=== PATIENT | male | born 1945 | race Caucasian/White ===

== ENCOUNTER → 2023-09-30 | Outpatient (CLI) | payer OTHER, SELFPAY ==
--- NOTE | 2023-09-30 14:51 | CT_ITS ---
STUDY: CT ABDOMEN AND PELVIS WITH AND WITHOUT CONTRAST REASON FOR EXAM: Male, 78 years old. Other microscopic hematuria RADIATION DOSAGE (If Supplied By Facility): CTDIvol = ( 20.79 ) mGy, DLP = ( 2668.36 ) mGycm TECHNIQUE: Transaxial images were obtained from the dome of the diaphragm to the symphysis pubis without oral contrast. IV 100mL Isovue-300 was administered. Sagittal and coronal images were reconstructed. Individualized dose optimization techniques were used for this CT. COMPARISON: None. FINDINGS: The visualized lung bases are unremarkable. Coronary artery calcification. There is decreased attenuation of the liver consistent with steatosis. Normal gallbladder and extrahepatic biliary system. Normal spleen. Normal pancreas. Normal bilateral adrenal glands. Normal right kidney. Is evidence of a staghorn calculus in the left kidney extending from the renal pelvis to the mid and lower pole calyces of the left kidney. Moderate size left hydronephrosis. Normal visualized stomach. Normal small intestine. There are multiple colonic diverticula consistent with diverticulosis. The appendix is visualized and appears normal. There is diffuse atherosclerotic calcification of the abdominal aorta and its major visceral branches, without a demonstrated aneurysm. Normal inferior vena cava. Normal retroperitoneum. Normal urinary bladder. Heterogeneous enlargement of the prostate with indentation at the bladder base. This measures 5 cm x 6.7 cm. Normal abdominal wall. There are diffuse degenerative changes of the visualized lumbar spine. CT/CT Abd/Pelvis W/WO Contrast IMPRESSION: Left staghorn calculus with left hydronephrosis. Fatty infiltration of the liver. Heterogeneous enlargement of the prostate with indentation at the bladder base. Electronically Signed: Winston Bruce MD at 15:21 EDT ,
== END | disposition home or self-care (01) ==
PROVIDERS: PCP Internal Medicine; Referring Provider Internal Medicine; Visit Provider Internal Medicine
DX: R31.29 Other microscopic hematuria (principal)
CPT/HCPCS: 74178; Q9967; A4216

== ENCOUNTER 2023-11-15 16:55 | Inpatient (IN) | payer MEDICARE, SELFPAY ==
[2023-11-15 16:56] VITALS: BP 134/102; PULSE 146; RESP 22; TEMP 36.1; O2SAT 96
[2023-11-15 16:58] VITALS: BMI 28.4
--- NOTE | 2023-11-15 17:27 | EDS_ITS ---
HPI History of Present Illness Chief Complaint: Chest Other Informant: patient Narrative Narrative: 78-year-old male presenting to the emergency room with right chest pain. Patient states that about a week ago he turned too quickly and fell against the door frame and up on the floor. He states he has pain in the right ribs and feels crunching when he moves. He states that he has been having a lot of pain over the past week that has been debilitating. He states he is not really eating or drinking much. He states he is not having any bowel movements now. States he has been urinating. He states he needs something really strong for the pain. He has not seen anybody for it over the past week. He basically got tired of the pain today and came in. No reported fevers. [facility]. He is not a strong historian. [facility] Medical History Hypertension Diabetes Home Medications ?Medication ?Instructions ?Recorded ?Last Taken ?Type atenolol 1 tab PO DAILY 11/15/23 Unknown History calcium acetate 1 tab PO DAILY 11/15/23 Unknown History glimepiride 1 tab PO DAILY 11/15/23 Unknown History lisinopril 1 tab PO DAILY 11/15/23 Unknown History multivitamin (Daily Multi-Vitamin 1 tab PO DAILY 11/15/23 Unknown History tablet) Allergy/AdvReac Type Severity Reaction Status Date / Time No Known Allergies Allergy Verified 11/15/23 16:58 Social History Smoking Status: Current every day smoker tobacco type: cigarettes ROS ROS ED Constitutional Constitutional ED: Denies chills, fever(s) or weight loss Eyes Eyes: Denies change in vision or diplopia ENT ENT ED: Denies ear pain, rhinorrhea or sore throat Cardiovascular Cardiovascular: Reports chest pain; Denies orthopnea, palpitations or racing heartbeat Respiratory/Chest Respiratory/Chest: Reports cough; Denies dyspnea or orthopnea Gastrointestinal Gastrointestinal: Reports constipation; Denies abdominal pain, diarrhea, nausea or vomiting Genitourinary Genitourinary ED: Denies dysuria, hematuria or urinary frequency Musculoskeletal Musculoskeletal: Reports back pain; Denies arthralgias, myalgias or neck pain Integumentary Denies abscess or rash Neurologic Neurologic: Denies headache(s) or weakness Psychiatric Psychiatric: Denies anxiety, depression, suicidal ideation or suicidal thoughts Endocrine Endocrinology: Denies polydipsia, polyphagia or polyuria Allergic/Immunologic Allergic/Immunologic ED: Denies mouth swelling, tongue swelling or urticaria EXAM Physical Exam Const Vital Signs: 11/15/23 16:56 11/15/23 17:08 Temperature 96.9 F L Temperature Source Temporal Pulse Rate 146 H Respiratory Rate 22 H Respiratory Effort Normal Non-Labored Blood Pressure 134/102 H Blood Pressure Mean 112 Pulse Ox 96 Oxygen Delivery Method Room Air Positive well nourished, well developed and obese General Appearance ED: well developed Nutritional Appearance: obese HEENT Reports normocephalic, head/scalp atraumatic and moist mucous membranes Eyes PERRL and EOMs intact bilaterally Neck full ROM, no lymphadenopathy, supple and no JVD General: Negative for tenderness Chest Wall Chest Narrative: There is crepitance but not subcutaneous air felt over the posterior lower neck and mid ribs. There is an area of ecchymosis over the right lower ribs in the midaxillary line. Resp normal respiratory effort and clear to auscultation bilaterally Cardio regular rate, regular rhythm and no murmurs Rate: tachycardic GI normal to inspection, nondistended, normoactive bowel sounds and non-tender Palpation: soft; Negative for tender Back/Spine no CVA tenderness and normal ROM Extremity normal to inspection General Extremety ED: Negative for edema General Extremity: Negative for edema Neuro oriented x3 and CN's II-XII intact bilaterally Sensorium / Orientation: alert Motor Exam: strength 5/5 throughout Psych mental status grossly normal Mood & Affect: Negative for depressed or tearful Skin no rashes or lesions noted and no wounds MDM MDM MDM Narrative Medical decision making narrative: Differential diagnosis includes but not limited to spine fracture rib fracture pneumothorax hemothorax pulmonary contusion retroperitoneal hematoma intra- abdominal organ injury anemia dehydration Patient is in a sinus tachycardia on the monitor. Patient received IV fluids and pain nausea medication. Basic blood work showed a white count 12.8 with hemoglobin 16.2. Coags normal. BUN of 28 creatinine 1.15 sodium 128 glucose 172 total bilirubin 1.7 with direct bilirubin 0.81 AST ALT and alk phos within normal limits. CT of the chest abdomen pelvis with IV contrast was obtained. This demonstrates posterior rib fractures of ribs 5 through 10 with an associated moderate hemothorax. I spoke with [facility] trauma surgeon. As the fall was a week ago does not necessarily need trauma center. I spoke with our hospitalist here and plan will be for admission. I suspect the patient will require rehab facility. History & Record Review Discussion w/independent historian: Patient Lab Data Attestation: I reviewed the patient's lab results. Labs: Laboratory Results - last 24 hr 11/15/23 17:43 WBC 12.8 H RBC 4.89 Hgb 16.2 Hct 47.1 MCV 96.3 H MCH 33.1 H MCHC 34.4 RDW Std Deviation 44.7 H RDW Coeff of Ana 12.6 Plt Count 233 MPV 9.8 Immature Gran % (Auto) 0.600 Neut % (Auto) 77.6 H Lymph % (Auto) 4.7 L Spencer % (Auto) 16.7 H Eos % (Auto) 0.2 Baso % (Auto) 0.2 Absolute Neuts (auto) 9.9 H Absolute Lymphs (auto) 0.60 L Nucleated RBC % 0 Differential Comment SEE COMMENTS Diff Path Review May foll Platelet Estimate ADEQUATE RBC Morphology N CHROM Anisocytosis 1+ Macrocytosis 1+ PT 14.4 INR 1.1 APTT 31.2 Sodium 128 L Potassium 4.2 Chloride 96 L Carbon Dioxide 22.0 Anion Gap 10 BUN 20 H Creatinine 1.15 Estim Creat Clear Calc 58.82 Est GFR (MDRD) Af Amer 79 Est GFR (MDRD) Non-Af 65 BUN/Creatinine Ratio 17.4 Glucose 172 H Calcium 9.1 Total Bilirubin 1.70 H Direct Bilirubin 0.81 H AST 24 ALT 32 Alkaline Phosphatase 87 Total Protein 7.2 Albumin 3.2 Globulin 4.0 Radiography Diagnostic Testing: Clinical Impression(s) from Imaging Studies Chest/Abdomen/Pelvis CT 11/15/23 18:22 IMPRESSION: Right posterior fifth through 10th rib fractures with underlying moderate low-density pleural effusion. Mild associated compressive atelectasis of the posterior segments right lower lobe. No pneumothorax. Borderline cardiomegaly with moderate calcified coronary atherosclerosis. No evidence of acute injury within the abdomen or pelvis. Right hepatic 2.4 cm and 0.4 cm enhancing lesions. Multiphasic contrast-enhanced CT is recommended to further evaluate not stable prior exams. Left pulmonary 5 mm nodule. One-year follow-up CT recommended if not stable prior exams. Cholelithiasis. Staghorn left calculus with moderate hydronephrosis of the anterior superior kidney Distal colonic diverticulosis without evidence of diverticulitis. Large prostate. Electronically Signed: Kevin Kaplan MD at 19:06 EDT Reading Location ID and State: [facility] / [place] Tel , Service support , Management Discussion w/another healthcare provider: Hospitalist (Dr. Munson) Discharge Plan Triage Chief Complaint: Chest Other ED Provider: Gus Grayson Dx/Rx/DC Orders Prescriptions: No Action glimepiride 1 tab PO DAILY lisinopril 1 tab PO DAILY atenolol 1 tab PO DAILY multivitamin [Daily Multi-Vitamin] Tablet 1 tab PO DAILY calcium acetate 1 tab PO DAILY Primary Care Provider: ADONIS BOATENG Referrals: ADONIS BOATENG MD [Primary Care Provider] - Print Language: Citizen Of [place]
[2023-11-15] MEDS: Ondansetron 4 MG/2 ML Vial IV (17:45)
[2023-11-15] MEDS: Morphine 4 MG/ML Syringe IV ×2 (17:46→18:43)
[2023-11-15] MEDS: 0.9% Normal Saline (1000mL) 1,000 ML 1000 ML IV (17:46)
[2023-11-15 18:05] LABS: International Normalized Ratio 1.1; Prothrombin Time (Protime)PT. 14.4 SECONDS (11.7-14.9)
[2023-11-15 18:06] LABS: Partial Thromboplast Time 31.2 Seconds (24.1-36.2)
[2023-11-15 18:08] LABS: AST(SGOT) 24 U/L (15-37); Alanine Aminotransfer ALT/SGPT 32 U/L (16-61); Albumin, Serum 3.2 g/dL (3.2-5.0); Alkaline Phosphatase 87 U/L (45-117); Anion Gap 10 (5-15); BUN 20 mg/dL (7-18); BUN/Creat Ratio 17.4 RATIO (10-20); Bilirubin, Direct 0.81 mg/dL (0.00-0.30); Calcium,Total 9.1 mg/dL (8.5-10.1); Chloride 96 mmol/L (98-107); Creatinine, Serum 1.15 mg/dL (0.70-1.30); EST Glomerular Filtration Rate 65 mL/min (>60); Est Glom Filt Rate - Afr Amer 79 mL/min (>60); Estimated Creatinine Clearance 58.82 ml/min; Glucose 172 mg/dL (74-106); Potassium 4.2 mmol/L (3.5-5.1); Protein, Total 7.2 g/dL (6.4-8.2); Sodium Level 128 mmol/L (136-145)
--- NOTE | 2023-11-15 18:22 | CT_ITS ---
STUDY: CT CHEST, ABDOMEN T PELVIS WITH CONTRAST REASON FOR EXAM: Male, 78 years old. trauma RADIATION DOSAGE (If Supplied By Facility): CTDIvol = ( 22.84 ) mGy, DLP = ( 2362.16 ) mGycm TECHNIQUE: Transaxial imaging was performed following intravenous administration of IV 100mL Isovue-370. Individualized dose optimization techniques were used for this CT. COMPARISON: No relevant priors. FINDINGS: CHEST Unremarkable thyroid. Aortic atherosclerosis without dissection or ectasia. Borderline cardiomegaly. No pericardial effusion. Moderate calcified coronary atherosclerosis. No endobronchial lesion. Unremarkable esophagus. No mediastinal or hilar adenopathy. Moderate layering right pleural effusion extending into the major fissure. Compressive atelectasis of the posterior segments right lower lobe. Anterior left lower lobe 5 mm nodule axial image. No other consolidation. No pneumothorax. ABDOMEN PELVIS No evidence of acute injury of the liver. Homogeneous enhancing central right hepatic 2.4 cm lesion series 2 image 106 and anterior right hepatic 0.4 cm lesion, series 2 image 118. Splenic calcified sequela of prior granulomatous disease. Unremarkable adrenals and pancreas. Gallbladder well filled multiple dependent stones, without gross wall thickening or surrounding inflammation. 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 Moderate hydronephrosis at the left renal anterior upper pole. Unremarkable right kidney. Minimal bilateral senescent perinephric stranding. Remainder of the ureters are unremarkable. Unremarkable bladder.Large prostate 6.6 x 5.5 cm Aortic atherosclerosis without dissection or ectasia. No acute gastric finding. No small bowel distention or focal wall thickening. Normal appendix. Distal colonic diverticulosis without evidence of diverticulitis. MUSCULOSKELETAL Mild bilateral gynecomastia. Posterior right chest subcutaneous soft tissue contusion without emphysema or radiodense foreign body. Posterior right 10th ninth eighth, seventh, sixth, fifth rib fractures. CT/CT Chest, Abd, Pel w/Contrast IMPRESSION: Right posterior fifth through 10th rib fractures with underlying moderate low-density pleural effusion. Mild associated compressive atelectasis of the posterior segments right lower lobe. No pneumothorax. Borderline cardiomegaly with moderate calcified coronary atherosclerosis. No evidence of acute injury within the abdomen or pelvis. Right hepatic 2.4 cm and 0.4 cm enhancing lesions. Multiphasic contrast-enhanced CT is recommended to further evaluate not stable prior exams. Left pulmonary 5 mm nodule. One-year follow-up CT recommended if not stable prior exams. Cholelithiasis. Staghorn left calculus with moderate hydronephrosis of the anterior superior kidney Distal colonic diverticulosis without evidence of diverticulitis. Large prostate. Electronically Signed: Kevin Kaplan MD at 19:06 EDT ,
[2023-11-15 18:50] LABS: Absolute Neutrophil Count 9.9 X10^3/uL (2.0-7.7); Basophil# 0.02 X10^3/uL; Basophil% 0.2 % (0-1); Eosinophil# 0.03 X10^3/uL; Eosinophils% 0.2 % (0-5); Hematocrit 47.1 % (40-54); Hemoglobin 16.2 g/dL (13.0-16.5); Lymphocyte % 4.7 % (19-41); Mean Corp Hgb Conc 34.4 g/dL (32-36); Mean Corpuscular Hgb 33.1 pg (27.0-32.0); Mean Corpuscular Volume 96.3 fL (80-94); Mean Platelet Vol. 9.8 fl (6.2-12.0); Monocyte# 2.14 X10^3/uL; Monocyte% 16.7 % (0-10); NRBC Flagged by Analyzer 0 % (0-5); Neutrophil # 9.91 X10^3/uL (2.7-7.7); Neutrophil % 77.6 % (47-70); POSITIVE DIFFERENTIAL YES; Platelet Count 233 K/mm3 (150-450); RBC Distribution Width CV 12.6 % (11.6-14.6); RBC Distribution Width SD 44.7 fl (35.1-43.9); Red Blood Count 4.89 M/mm3 (4.6-6.2); White Blood Count 12.8 K/mm3 (4.4-11.0)
[2023-11-15 18:52] LABS: Differential Indicated SCAN CRITERIA MET
[2023-11-15 18:53] LABS: Differential Comment SEE COMMENTS
[2023-11-15 18:54] LABS: Anisocytosis 1+; Macrocytosis 1+; Platelet Estimate ADEQUATE (ADEQ); Red Cell Morphology N CHROM NORMAL (NORM C&C)
[2023-11-15 19:21] LABS: Bacteria 0 SEEN /hpf (None Seen); Mucous, Urine 0 SEEN /hpf (<or=2+); Red Blood Cells-Urine 0 SEEN /hpf (0-5); Squamous Epithelial Cells - UA 0 SEEN /hpf (0-5); White Blood Cells 0 SEEN /hpf (0-5)
--- NOTE | 2023-11-15 19:35 | PCM.HP.STD ---
HPI - General General Date of Admission: 11/15/23 Date of Service: 11/15/23 Chief Complaint: Rib fractures with pain and debility HPI Narrative OMKAR WOODRUFF, is a 78 M who presented to [facility] ED on 11/15/2023 with worsening right-sided pain and general debility after a fall at home. Patient seen at bedside in the ED. Was sitting up in bed but did appear mild to moderately uncomfortable at several points during our encounter due to ongoing right-sided pain. Patient lives at home alone. [facility] States that he typically is able to do things around the house for himself without issue but his son also lives in town to help out as needed. States that about a week ago he tried to turn around too quickly and fell into a door frame and then onto the floor. He fell onto his right side and back. He has had pain in his right rib area and back and has felt a crunching sensation when he moves. He does not like to come to the hospital and was trying to manage the pain at home. He was taking Tylenol primarily and states this was not very helpful for him. He finally got to a point where he could not tolerate the pain any longer and came in for further management. He was found on CT chest abdomen pelvis to have right posterior fifth through 10th rib fractures with an underlying moderate low-density pleural effusion and mild associated compressive atelectasis. None of these fractures were displaced. ED physician spoke with outside trauma center and they agreed with nonoperative management and thus he was okay to remain here. Hospitalist was then contacted for admission. Patient was not a great historian and did not provide a great deal of information. Unfortunately I was unable to see any of [facility]. [facility] and his home medications were able to be pulled from this. Importantly, patient's CT chest abdomen pelvis here was also notable for a staghorn left calculus with moderate hydronephrosis, a large prostate, a left pulmonary 5 mm nodule, and right hepatic 2.4 cm and 0.4 cm enhancing lesions. He did have a CT abdomen pelvis done here on 09/30/2023 that showed the staghorn calculus and heterogenous enlargement of the prostate, but no liver lesions were noted. Patient states he previously followed with a [facility]rologist [place] for the kidney [place]. States he had lithotripsy done at 1 point but was then told the stone was too big to be broken up and nothing else would be done for it. He denies any pain or discomfort with urination. He denies any gross hematuria but states he was told he had microscopic hematuria a few months ago and this was why that CT abdomen pelvis was done. He states that no follow-up has happened since that CT scan. He also notes that over the past several months he has unintentionally been losing weight. States that he generally has not felt very hungry most the time. States he previously weighed in the 200s but at his last office visit a few months ago he was in the low 180s. He denies any pain or discomfort with eating. He is a current smoker and smokes about 1/2 pack/day. He also drinks 6-12 beers per day. Denies any history of alcohol withdrawal. Denies any changes to his bowel movements. Denies any fevers or chills. Vitals in ED notable for mild sinus tachycardia, otherwise unremarkable. CBC with WBC count 12.8, otherwise benign. CMP with sodium 128, potassium 4.2, chloride 96, bicarb 22, BUN 20, creatinine 1.15 (baseline unknown), T. bili 1.70, direct bili 0.81, otherwise unremarkable. UA showed 15 protein, 250 occult blood, 1000 glucose, otherwise was benign. Imaging findings as noted above. [facility] Medical History (Updated 11/16/23 @ 03:[address] Brendon Munson DO) Alcohol abuse Kidney stones Smoker Hypertension Diabetes Home Medications ?Medication ?Instructions ?Recorded ?Last Taken ?Type atenolol 1 tab PO DAILY 11/15/23 Unknown History calcium acetate 1 tab PO DAILY 11/15/23 Unknown History glimepiride 1 tab PO DAILY 11/15/23 Unknown History lisinopril 1 tab PO DAILY 11/15/23 Unknown History multivitamin (Daily Multi-Vitamin 1 tab PO DAILY 11/15/23 Unknown History tablet) Allergy/AdvReac Type Severity Reaction Status Date / Time No Known Allergies Allergy Verified 11/15/23 16:58 Social History Smoking Status: Current every day smoker tobacco type: cigarettes ROS Constitutional Constitutional: Reports fatigue and weakness; Denies chills or fever(s) Cardiovascular Cardiovascular: Denies chest pain Respiratory/Chest Respiratory/Chest: Denies cough, productive cough, shortness of breath at rest or shortness of breath with exertion Gastrointestinal Gastrointestinal: Denies abdominal pain, constipation, diarrhea, nausea or vomiting Genitourinary Genitourinary: Denies dysuria Musculoskeletal Musculoskeletal: Reports other Details: Right-sided rib and back pain Neurologic Neurologic: Denies focal weakness, headache(s), numbness, paresthesias or tingling Vital Signs Vital Signs Vital Signs: 11/15/23 16:56 11/15/23 17:08 Temperature 96.9 F L Temperature Source Temporal Pulse Rate 146 H Respiratory Rate 22 H Respiratory Effort Normal Non-Labored Blood Pressure 134/102 H Blood Pressure Mean 112 Pulse Ox 96 Oxygen Delivery Method Room Air Weight Weight: 90.1 kg Body Mass Index (BMI) 28.4 Physical Exam Const alert, oriented x3, no apparent distress and average body habitus Constitutional Narrative: Elderly male, somewhat unkempt appearing, sitting up in bed but uncomfortable at multiple points due to ongoing pain, otherwise conversing normally and answering questions appropriately. General Appearance: cooperative and comfortable HEENT normocephalic, head/scalp atraumatic, hearing grossly normal bilaterally and nasal mucous membranes and turbinates normal Eyes PERRL, EOMs intact bilaterally and conjunctivae normal Neck full ROM Chest inspection of chest normal Chest Narrative: Moderate right-sided lateral chest and back pain to palpation diffusely. Resp normal respiratory effort, normal air movement, no use of accessory muscles and clear to auscultation bilaterally Cardio no murmurs and peripheral pulses 2+ throughout Cardio Narrative: Tachycardic, regular rhythm. GI normal to inspection, nondistended, normoactive bowel sounds, soft to palpation, non-tender and non-distended Back/Spine no CVA tenderness and normal ROM Extremity normal to inspection and no pedal edema Skin no rashes or lesions noted Neuro moves all extremities and no focal motor deficits Speech: speech normal Psych mental status grossly normal Results Lab / Micro Data 11/15/23 17:43 11/15/23 17:43 Labs: Laboratory Results - last 24 hr 11/15/23 17:43: WBC 12.8 H, RBC 4.89, Hgb 16.2, Hct 47.1, MCV 96.3 H, MCH 33.1 H, MCHC 34.4, RDW Std Deviation 44.7 H, RDW Coeff of Ana 12.6, Plt Count 233, MPV 9.8, Immature Gran % (Auto) 0.600, Neut % (Auto) 77.6 H, Lymph % (Auto) 4.7 L, [place] % (Auto) 16.7 H, Eos % (Auto) 0.2, Baso % (Auto) 0.2, Absolute Neuts (auto) 9.9 H, Absolute Lymphs (auto) 0.60 L, Nucleated RBC % 0, Differential Comment SEE COMMENTS, Diff Path Review October foll, Platelet Estimate ADEQUATE, RBC Morphology N CHROM, Anisocytosis 1+, Macrocytosis 1+, PT 14.4, INR 1.1, APTT 31.2, Sodium 128 L, Potassium 4.2, Chloride 96 L, Carbon Dioxide 22.0, Anion Gap 10, BUN 20 H, Creatinine 1.15, Estim Creat Clear Calc 58.82, Est GFR (MDRD) Af Amer 79, Est GFR (MDRD) Non-Af 65, BUN/Creatinine Ratio 17.4, Glucose 172 H, Calcium 9.1, Total Bilirubin 1.70 H, Direct Bilirubin 0.81 H, AST 24, ALT 32, Alkaline Phosphatase 87, Total Protein 7.2, Albumin 3.2, Globulin 4.0 Imaging Radiology Impression Chest/Abdomen/Pelvis CT 11/15/23 18:22 IMPRESSION: Right posterior fifth through 10th rib fractures with underlying moderate low-density pleural effusion. Mild associated compressive atelectasis of the posterior segments right lower lobe. No pneumothorax. Borderline cardiomegaly with moderate calcified coronary atherosclerosis. No evidence of acute injury within the abdomen or pelvis. Right hepatic 2.4 cm and 0.4 cm enhancing lesions. Multiphasic contrast-enhanced CT is recommended to further evaluate not stable prior exams. Left pulmonary 5 mm nodule. One-year follow-up CT recommended if not stable prior exams. Cholelithiasis. Staghorn left calculus with moderate hydronephrosis of the anterior superior kidney Distal colonic diverticulosis without evidence of diverticulitis. Large prostate. Electronically Signed: Kevin Kaplan MD at 19:06 EDT , Assessment & Plan Assessment/Plan (1) Multiple rib fractures involving four or more ribs: (2) Pleural effusion on right: (3) Hyponatremia: (4) Debility: (5) Tobacco abuse: (6) Alcohol abuse: PLAN: Plan Patient is a 78-year-old male who presented to [facility] ED on 11/15/2023 with worsening right rib and back pain with debility after a fall at home. 1. Right rib fractures with pain and acute debility ? Admit under inpatient status to [facility]. PT/OT/case management consulted. Pain management with scheduled Tylenol, lidocaine patch, oxycodone as needed and IV Dilaudid as needed. Patient lives alone, apparently son lives in town and helps as needed. Patient was fairly adamant on admit that he would not be interested in going to a skilled nurse facility and would strongly prefer home with home health care if possible. 2. Alcohol use with concern for withdrawal ? Reports drinking 6-12 beers per day. Denies any history of withdrawal. Will start CIWA protocol with Ativan as needed ordered, along with other as needed medications ordered per alcohol withdrawal order set. Thiamine and folate ordered. Monitor closely. 3. Hyponatremia ? Sodium 128 on admit. Chloride slightly low at 96. Serum osmolality normal at 295, urine osmolality and urine sodium pending. Unclear etiology at this time. Could be in part secondary to poor p.o. intake given slightly low chloride, as well as a degree of beer potomania. Cannot rule out SIADH due to significant pain. No previous baseline available. Notably was given 1 L normal saline in the ED. Follow-up a.m. sodium level. Can consider nephrology consult as needed. 4. New liver lesions ? Right hepatic 2.4 cm lesion and anterior right hepatic 0.[address] abdomen pelvis. Unremarkable adrenals and pancreas. Notably, on CT abdomen pelvis in September, fatty liver disease was called but no liver lesions were noted. Does appear to have heavy drinking history but no other signs of cirrhosis. Radiology recommended multiphasic contrast-enhanced CT for further evaluation. As patient had CT scan with IV contrast done on day of admission, will hold on completing this CT now but will order for midday on 11/15. CEA, CA 19-9 and AFP ordered. GI consulted for further recommendations. 5. Unintentional weight loss ? Patient reports previously weighing in the 200s for many years but on last check recently was in the low 180s. Reports fairly poor p.o. intake over the last several weeks to months; heavy alcohol use with poor oral intake likely playing a role. Cannot rule out an underlying malignancy. Nutrition consulted. 6. Chronic left sided staghorn calculus with microscopic hematuria ? Noted on CT scans on this admission and in September. Per patient, has been known for many years. He apparently previously followed with a urologist who completed 1 round of lithotripsy but then no further management was recommended. Asymptomatic and kidney function is stable, no inpatient urology needs at this time. 7. Tobacco abuse ? Longtime smoking history and current smoker about half pack per day. Nicotine patch provided per patient request. Encouraged cessation. 8. Right pleural effusion ? Moderate right sided low-density pleural effusion noted on CT chest. Presumed secondary to right rib fractures and is likely a small hemothorax. On my read, effusion does not appear to be very large and patient is very stable on room air. Will hold on consulting radiology for thoracentesis for now but can consider this as needed. 9. Pulmonary nodule ? Left 5 mm pulmonary nodule noted on CT chest. 1 year follow-up recommended. Chronic medical conditions: ? Type 2 diabetes mellitus with neuropathy: Home regimen of glimepiride, empagliflozin, alogliptin. Glucose 172 on admit. Okay for sliding-scale insulin with meals as needed. Continue home duloxetine. ? Hypertension: Stable. Continue home lisinopril. ? Reported osteoporosis: Continue home calcium/vitamin D supplement. ? COPD: Stable, not in acute exacerbation. Continue home albuterol as needed. DVT prophylaxis: Lovenox CODE STATUS: DNR CCA, DNI Expected disposition: SNF versus home with home health care, TBD Total clinical time spent by myself addressing the patient's medical issues, reviewing all the data, and collaborating with patient's care team: 75 minutes. Charges/Coding Visit Charges Inpatient E&M: 98662 Init Hosp L3
[2023-11-15 20:01] VITALS: BP 132/89; PULSE 105; RESP 24; TEMP 36.3; O2SAT 93
[2023-11-15 20:02] VITALS: BP 132/89; PULSE 105; RESP 17; TEMP 36.3; O2SAT 96
--- NOTE | 2023-11-15 20:03 | NURSING ---
[facility]ED [facility]IL
[2023-11-15 20:06] LABS: Color, Urine Yellow (Yellow); Glucose, Dipstick 1000 mg/dl (Normal); Ketone-Dipstick 15 mg/dl (Negative); Leukocyte Esterase-Dipstick Negative /ul (Negative); Nitrite-Dipstick Negative (Negative); Occult Blood-Urine 250 /ul (Negative); Protein-Dipstick 15 mg/dl (Negative); Urine Bilirubin Dipstick Negative (Negative); Urine Clarity Clear (Clear); Urine Urobilinogen Normal (Normal)
[2023-11-15 20:31] LABS: Osmolality, Serum 295 mOsm/KG (280-301)
[2023-11-15] MEDS: HYDROmorphone 1 MG/ML Syringe IV (21:20)
[2023-11-15 22:00] VITALS: BP 139/78; PULSE 89; RESP 16; O2SAT 94
[2023-11-15 22:49] VITALS: BMI 27.8
[2023-11-15 23:12] VITALS: BP 127/64; PULSE 99; RESP 16; TEMP 36.2; O2SAT 94
[2023-11-15] MEDS: Acetaminophen 500 MG Tablet 1000 MG PO (23:27)
[2023-11-15] MEDS: 0.9% Normal Saline (1000mL) 1,000 ML 125 ML IV (23:29)
[2023-11-15] MEDS: oxyCODONE 5 MG Tablet PO (23:33)
[2023-11-15] MEDS: traZODone 50 MG Tablet PO (23:36)
[2023-11-16] VITALS (12 sets, daily range): BP systolic 105–135; BP diastolic 46–66; PULSE 47–105; RESP 15–20; TEMP 36.4–37.5; O2SAT 90–96
--- NOTE | 2023-11-16 | IMM_PTH ---
PATIENT: OMKAR WOODRUFF LOC: MS3 U#:[id number] AGE/SX: 78/M ROOM: [facility] RE11/15/[address]: Dr. Justin Rosario DO : 1945 BED: 1 DIS: 11/18/2023 SPEC #: [id number] RECD: 11/17/23 12:07 STATUS: TING REQ #: [id number] BRITTNY: 11/16/23 00:[address]: Justin Rosario DEPT: IMMUNOHISTOCHEMISTRY RECD BY: Owen Aaron ENTERED: 11/17/23 12:08 SP TYPE: IMMUNO OTHR DR: Dr. Brendon Munson, DO Tabatha Irene MD Tissues: THORACIC FLUID Procedures: RCC (add) NAPSIN A (add) Jesse Ret (add) CK20 (add) CK5-6 (add) CK7 (add) CK8 (add) HEP PAR (add) TTF1 (add) Vimentin (add) Pankeratin (initial) P40 (add) PSAP (add) CD68 (ADD) PHYSICIAN & [address] [address] SPECIMEN INFORMATION: Tissue Source: Thoracentesis fluid Clinical Info: Pleural effusion Specimen Number: [id number] CPT code: 09629,05502l79 METHODOLOGY: Deparaffinized sections of prefer/formalin-fixed tissue or PAP/DQ stained slides are incubated with monoclonal/polyclonal antibodies/oligonucleotide probes. Localization is made via biotin free immunoperoxidase method. Appropriate controls are performed and reacted as expected. Results on target cell population are indicated in the following table: RESULTS: ANTIBODY / CLONE RESULT AE1-3 (AE1/AE3/PCK26) negative * CK7 (OV-TL12/30) negative * CK8 (06ptlzV21) negative * CK20 (KS20.8) negative Vimentin (V9) negative * CD68 (KP-1) negative TTF-1 (8G7G3/1) negative Napsin A (Rabbit Polyclonal) negative HepPar (OCh1E5) negative RCC (PN-15) negative PSAP (PASE/4LJ) negative CALRET (polyclonal) negative* CK5-6 (D5 & 1684) negative * P40 (BC28) negative * Positive in mesothelial cells These tests were developed and their performance characteristics determined by [facility]. They may not have been cleared or approved by the U.S. Food and Drug Administration. The FDA has determined that such clearance or approval is not necessary. The above immunohistochemical/dualISH markers are ordered and reviewed by the Pathologist. INTERPRETATION: Thoracentesis fluid: Negative for malignant cells. ROOSEVELT/ 11/18/2023
--- NOTE | 2023-11-16 | FLU_PTH ---
PATIENT: OMKAR WOODRUFF LOC: MS3 U#:[id number] AGE/SX: 78/M ROOM: [facility] RE11/15/[address]: Dr. Justin Rosario DO : 1945 BED: 1 DIS: 11/18/2023 SPEC #: [id number] RECD: 11/16/23 12:35 STATUS: TING REJoey #: [id number] BRITTNY: 11/16/23 00:[address]: Justin Rosario DEPT: CYTOLOGY RECD BY: Mayo Blum ENTERED: 11/16/23 13:13 SP TYPE: Fluid OTHR DR: DO Tabatha Kraus MD Tissues: THORACIC FLUID Procedures: Special Stain Group II Surgery Specimen Level IV Cytospin Fluid HEADER OPERATION: Thoracentesis-right chest PRE-OP DIAGNOSIS: Pleural effusion TISSUE SUBMITTED: Thoracentesis fluid for cytology DIAGNOSIS CYTOLOGY Thoracentesis fluid for cytology (cytospin and cellblock): Negative for malignant cells. Acute inflammation. See comment. SJ/mr 11/18/2023 COMMENT Immunohistochemistry ([id number]) supports the above diagnosis. Reactive mesothelial cells are noted. Case has been reviewed in consultation with Dr. Jon who concurs with the above diagnosis. IDC:AM CYTOLOGY STUDY Slides are reviewed. CYTOLOGY GROSS Received is 25 ml of cloudy red fluid labeled with the patient's name and and designated per the requisition as Thoracentesis fluid. Submitted for cytology preparation including cell block. Mr 11/16/2023 TC:5 CPT: 33486,64072
[2023-11-16 00:56] LABS: Bedside Glucose 143 mg/dL (74-106)
[2023-11-16] MEDS: HYDROmorphone 0.5 MG/0.5 ML SYRINGE IV (05:47)
[2023-11-16] MEDS: Acetaminophen 500 MG Tablet 1000 MG PO ×2 (05:49→13:03)
[2023-11-16] MEDS: 0.9% Normal Saline (1000mL) 1,000 ML 125 ML IV (06:27)
[2023-11-16 06:46] LABS: Hematocrit 40.9 % (40-54); Hemoglobin 13.6 g/dL (13.0-16.5); Mean Corp Hgb Conc 33.3 g/dL (32-36); Mean Corpuscular Hgb 32.8 pg (27.0-32.0); Mean Corpuscular Volume 98.6 fL (80-94); Platelet Count 198 K/mm3 (150-450); RBC Distribution Width CV 12.7 % (11.6-14.6); RBC Distribution Width SD 45.8 fl (35.1-43.9); Red Blood Count 4.15 M/mm3 (4.6-6.2); White Blood Count 10.4 K/mm3 (4.4-11.0)
[2023-11-16 07:07] LABS: Bedside Glucose 136 mg/dL (74-106)
[2023-11-16 07:12] LABS: Anion Gap 5 (5-15); BUN 22 mg/dL (7-18); BUN/Creat Ratio 24.4 RATIO (10-20); Calcium,Total 8.7 mg/dL (8.5-10.1); Chloride 104 mmol/L (98-107); EST Glomerular Filtration Rate 86 mL/min (>60); Est Glom Filt Rate - Afr Amer 104 mL/min (>60); Estimated Creatinine Clearance 74.43 ml/min; Glucose 139 mg/dL (74-106); Potassium 3.7 mmol/L (3.5-5.1); Sodium Level 133 mmol/L (136-145)
[2023-11-16] MEDS: Folic Acid 1 MG Tablet PO (08:52)
[2023-11-16] MEDS: Thiamine Hydrochloride 100 MG Tablet PO (08:52)
[2023-11-16] MEDS: Calcium Carb/Vitamin D 1 TABLET Tablet PO ×2 (08:52→16:05)
[2023-11-16] MEDS: Gabapentin 300 MG Capsule PO ×3 (08:52→16:05)
[2023-11-16] MEDS: DULoxetine Hcl 30 MG Capsule PO (10:39)
[2023-11-16] MEDS: Lisinopril 10 MG Tablet PO (10:39)
[2023-11-16] MEDS: Fluticasone 0.05% 1 SPRAY NASAL.SRY NASAL (10:40)
[2023-11-16] MEDS: Insulin Lispro 100 UNIT/ML INSULN.PEN SC ×2 (11:29→16:01)
--- NOTE | 2023-11-16 11:33 | CASEMGMT ---
Social Work- JM met with pt to have him sign a form for the [facility] regarding [facility] to transfer to a [facility] facility. JM faxed [facility] to the [facility]. YONY Powell
[2023-11-16 11:34] LABS: Pathologist Review Reviewed
[2023-11-16 12:04] LABS: Bedside Glucose 218 mg/dL (74-106)
[2023-11-16] MEDS: Lidocaine 2% (20 ml mdv) 20 ML Vial INFILT (12:15)
--- NOTE | 2023-11-16 12:20 | RAD_ITS ---
STUDY: X-RAY CHEST REASON FOR EXAM: Male, 78 years old. Post thora TECHNIQUE: AP inspiration and expiration views. COMPARISON: None. FINDINGS: The patient is status post right thoracentesis. There is no evidence of pneumothorax. Once again, there is evidence of healed bilateral rib fractures. RAD/Chest Insp/Exp 2 View IMPRESSION: No evidence of pneumothorax following the right thoracentesis. Electronically Signed: Winston Bruce MD at 13:07 EDT ,
--- NOTE | 2023-11-16 12:28 | PRO.PCM_ITS ---
Procedure Report Date of Procedure: 11/16/23 Assessment & Plan Assessment/Plan (1) Pleural effusion on right: PLAN: PROCEDURE: Ultrasound Guided Thoracentesis ORDERING PROVIDER: Dr. Rosario INDICATION: Male, 78 years old. Right pleural effusion. PROVIDER: CARMEL Schulte PROCEDURE: The risks, benefits, and alternatives to the procedure were explained to the patient. The specific risks of bleeding, infection, and pneumothorax requiring chest tube insertion were discussed and accepted. Written informed consent was obtained. The patient was placed in the sitting, upright position. Ultrasonographic evaluation of the bilateral lower pleural spaces was carried out. An adequate pocket was identified in the right lower pleural space.The overlying skin was prepped and draped in sterile fashion. 2% lidocaine was administered subcutaneously for local anesthesia. Under ultrasound guidance, a 5-Vietnamese thoracentesis needle/catheter system was advanced into the right posterior lower pleural fluid collection. 580 ml of red colored fluid was drained. 30 mL of this fluid was collected and sent to laboratory for analysis. The catheter was removed, and a sterile dressing was applied. The patient tolerated the procedure well. A chest x-ray was ordered. IMPRESSION: Successful ultrasound-guided thoracentesis of right pleural effusion. Procedures Radiology Radiology US Procedures: [id number] Thoracentesis
--- NOTE | 2023-11-16 14:08 | CASEMGMT ---
Social Work SW met with pt to discuss advance directives.? Pt notified that documents are not on file at [facility] and SW requested they be brought in for scanning into the EMR.? YONY Powell
[2023-11-16] MEDS: oxyCODONE 5 MG Tablet 10 MG PO ×2 (14:27→20:30)
--- NOTE | 2023-11-16 15:21 | CASEMGMT ---
RJ SHEETS Assessment ? Face to Face with patient for initial?transition planning/care coordination assessment. RJ SHEETS introduced self and role at [facility], pt voices understanding. Pt is A&Ox4 and is resting comfortably in bed and is calm. Care providers, pharmacy, and demographics verified. ? Admitting dx: ?Right rib fractures with pain and debility PCP: ?Tabatha Irene. Pt goes through the [facility] branch Specialists: ?Denies Preferred Pharmacy: [facility] ? Insurance: ?[facility], [facility] A only Prescription Benefit: ?yes LNOK: ?Kyle Chawla (Son) Living Arrangements: ?Patient lives alone in a single level house with one step to enter ADLs/IADLs:?States independent with ADLs. Son helps with IADLs. Transportation: ?Self, son DME: ?Working [employer] and supplies. Cane. FWW. BP Cuff. HHC/SNF: ?Denies history ETOH/Smoking: Pt states that he drinks 6-10 beers per day. Pt states that he smokes 1/2 pack of cigarettes per day. Pt?s goal: Return to prior level of function Plan: ?TBD. SNF vs HHC. PT is recommending skilled therapy. Patient states that it is too early in his stay to decide what he will need at time of discharge. Pt states that he does not like to ask for help at home but is coming to realize that he may need this type of assistance. KORTNEY/JM to follow. Jose Miguel Uriarte RN, CM
[2023-11-16] MEDS: Glucerna Shake 120 ML LIQUID PO (16:05)
[2023-11-16 16:28] LABS: Bedside Glucose 186 mg/dL (74-106)
--- NOTE | 2023-11-16 17:09 | PN.HOSP_ITS ---
Reason for Visit Reason for Visit: Diagnoses Hypo-osmolality and hyponatremia (11/15/23) Alcohol abuse, uncomplicated (11/15/23) Pleural effusion, not elsewhere classified (11/15/23) Other malaise (11/15/23) Multiple fractures of ribs, unspecified side, initial encounter for closed fracture (11/15/23) Tobacco use (11/15/23) Subjective Subjective Patient was seen and examined today, I had him undergo right thoracentesis today with removal of approximately 500 cc of bloody fluid, I sent the fluid down for cytology, I think the fluid is likely due to his rib fractures. Patient states he would not like to go to a nursing facility, he just wants pain control and he wants to go home if possible. Objective Data Objective Data Vital Signs: Vital Signs Temp Pulse Resp BP Pulse Ox O2 Del Method 97.5 F L 95 16 122/66 H 93 Room Air 11/16/23 16:39 11/16/23 16:39 11/16/23 16:39 11/16/23 16:39 11/16/23 16:39 11/16/23 16:39 Oxygen Delivery Method Room Air Weight: 88.178 kg Body Mass Index (BMI) 27.8 Intake & Output: Intake and Output for Last 24 Hours 11/14/23 11/15/23 11/16/23 23:59 23:59 23:59 Intake Total 1000 / 1000 877.08 / 877.08 Output Total 580 / 580 Balance 1000 / 1000 297.08 / 297.08 Lab / Micro Data 11/16/23 06:27 11/16/23 06:27 Labs: Laboratory Results - last 24 hr 11/15/23 17:43: WBC 12.8 H, RBC 4.89, Hgb 16.2, Hct 47.1, MCV 96.3 H, MCH 33.1 H , MCHC 34.4, RDW Std Deviation 44.7 H, RDW Coeff of Ana 12.6, Plt Count 233, MPV 9.8, Immature Gran % (Auto) 0.600, Neut % (Auto) 77.6 H, Lymph % (Auto) 4.7 L, M papo % (Auto) 16.7 H, Eos % (Auto) 0.2, Baso % (Auto) 0.2, Absolute Neuts (auto) 9.9 H, Absolute Lymphs (auto) 0.60 L, Nucleated RBC % 0, Differential Comment SEE COMMENTS, Diff Path Review Reviewed, Platelet Estimate ADEQUATE, RBC Morphology N CHROM, Anisocytosis 1+, Macrocytosis 1+, PT 14.4, INR 1.1, APTT 31.2, Sodium 128 L, Potassium 4.2, Chloride 96 L, Carbon Dioxide 22.0, Anion Gap 10, BUN 20 H, Creatinine 1.15, Estim Creat Clear Calc 58.82, Est GFR (MDRD) Af Amer 79, Est GFR (MDRD) Non-Af 65, BUN/Creatinine Ratio 17.4, Glucose 172 H, Calcium 9.1, Total Bilirubin 1.70 H, Direct Bilirubin 0.81 H, AST 24, ALT 32, Alkaline Phosphatase 87, Total Protein 7.2, Albumin 3.2, Globulin 4.0 11/15/23 19:05: Urine Color Yellow, Urine Clarity Clear, Urine pH 6.0, Ur Specific [place] 1.010, Urine Protein 15 H, Urine Glucose (UA) 1000 H, Urine Ketones 15 H, Urine Occult Blood 250 H, Urine Nitrite Negative, Urine Bilirubin Negative, Urine Urobilinogen Normal, Ur Leukocyte Esterase Negative, Urine RBC 0 SEEN, Urine WBC 0 SEEN, Ur Squamous Epith Cells 0 SEEN, Urine Bacteria 0 SEEN, Urine Mucus 0 SEEN 11/15/23 20:00: Serum Osmolality 295 11/15/23 23:27: POC Glucose 143 H 11/16/23 06:25: POC Glucose 136 H 11/16/23 06:27: WBC 10.4, RBC 4.15 L, Hgb 13.6, Hct 40.9, MCV 98.6 H, MCH 32.8 H , MCHC 33.3, RDW Std Deviation 45.8 H, RDW Coeff of Ana 12.7, Plt Count 198, MPV 10.0, Sodium 133 L, Potassium 3.7, Chloride 104, Carbon Dioxide 24.0, Anion Gap 5, BUN 22 H, Creatinine 0.90, Estim Creat Clear Calc 74.43, Est GFR (MDRD) Af Amer 104, Est GFR (MDRD) Non-Af 86, BUN/Creatinine Ratio 24.4 H, Glucose 139 H, Calcium 8.7 11/16/23 11:25: POC Glucose 218 H 11/16/23 15:58: POC Glucose 186 H Radiography Diagnostic Testing: Radiology Impression Chest/Abdomen/Pelvis CT 11/15/23 18:22 IMPRESSION: Right posterior fifth through 10th rib fractures with underlying moderate low-density pleural effusion. Mild associated compressive atelectasis of the posterior segments right lower lobe. No pneumothorax. Borderline cardiomegaly with moderate calcified coronary atherosclerosis. No evidence of acute injury within the abdomen or pelvis. Right hepatic 2.4 cm and 0.4 cm enhancing lesions. Multiphasic contrast-enhanced CT is recommended to further evaluate not stable prior exams. Left pulmonary 5 mm nodule. One-year follow-up CT recommended if not stable prior exams. Cholelithiasis. Staghorn left calculus with moderate hydronephrosis of the anterior superior kidney Distal colonic diverticulosis without evidence of diverticulitis. Large prostate. Electronically Signed: Kevin Kaplan MD at 19:06 EDT , Chest X-Ray 11/16/23 12:20 IMPRESSION: No evidence of pneumothorax following the right thoracentesis. Electronically Signed: Winston Bruce MD at 13:07 EDT , Physical Exam Const alert, oriented x3, no apparent distress and average body habitus General Appearance: cooperative, well kempt and well developed Orientation / Consciousness: awake, oriented to person, oriented to place and oriented to time HEENT normocephalic, head/scalp atraumatic and moist oral mucous membranes Eyes PERRL, EOMs intact bilaterally and conjunctivae normal Neck supple, no JVD, thyroid normal and no carotid bruits General: trachea midline Resp normal respiratory effort, no retractions and no use of accessory muscles Resp Narrative: Patient has tenderness over his right rib cage laterally, decreased breath sounds are noted at the right base Auscultation: Negative for rales, rhonchi or wheezes Cardio regular rate, regular rhythm, S1 normal heart sound, S2 normal heart sound, no murmurs, no rub and no gallops GI normal to inspection, nondistended, normoactive bowel sounds, soft to palpation, non-tender and non-distended Extremity no clubbing, cyanosis or edema Skin no rashes or lesions noted General Skin Exam: no breakdown Neuro oriented x3, CN's II-XII intact bilaterally, moves all extremities, no focal motor deficits and no sensory deficits noted Sensorium / Orientation: awake and alert Speech: speech normal Psych affect normal Assessment & Plan Assessment/Plan (1) Multiple rib fractures involving four or more ribs: PLAN: Plan 1. Right hemothorax secondary to multiple right rib fractures-again approximately 500 cc of bloody fluid was drained today #2 acute debility secondary to multiple right rib fractures with uncontrolled pain-patient is being seen by PT and OT, I placed the patient on programmed oxycodone #3 type 2 diabetes-patient will be placed on his home medications, I will hold his Amaryl, he will be placed on sliding scale insulin and his blood sugars will be monitored and he will receive sliding scale insulin as indicated #4 chronic depression-patient is on Cymbalta #5 essential hypertension-patient is on Zestril #6 right hepatic lesions noted on CT-I discussed this with him and told him he would need [facility] these [facility], I do not think they need to be addressed at this time, the size of these lesions are relatively small. Gastroenterology had been written to see the patient concerning these, I told gastroenterology that I discussed these lesions with the patient and he was okay following up as an outpatient at the [facility] so I have canceled the gastroenterology consultation. #6 left pulmonary [id number] was recommended Total clinical time spent by myself addressing the patient's medical issues, reviewing all of his data, and collaborating with patient's care team: 50 minutes Charges/Coding Visit Charges Inpatient E&M: 04997 Subs Hosp L2
[2023-11-16 22:30] LABS: Bedside Glucose 140 mg/dL (74-106)
[2023-11-17] VITALS (9 sets, daily range): BP systolic 127–151; BP diastolic 54–64; PULSE 93–110; RESP 15–18; TEMP 36.5–37; O2SAT 94–98
[2023-11-17] MEDS: Acetaminophen 500 MG Tablet 1000 MG PO ×4 (00:15→21:30)
[2023-11-17] MEDS: MELATONIN 3 MG TABLET PO (00:16)
[2023-11-17] MEDS: traZODone 50 MG Tablet PO (00:35)
[2023-11-17] MEDS: oxyCODONE 5 MG Tablet 10 MG PO ×4 (02:23→21:29)
[2023-11-17 07:12] LABS: Bedside Glucose 154 mg/dL (74-106)
[2023-11-17] MEDS: DULoxetine Hcl 30 MG Capsule PO (08:01)
[2023-11-17] MEDS: Glucerna Shake 120 ML LIQUID PO (08:01)
[2023-11-17] MEDS: Calcium Carb/Vitamin D 1 TABLET Tablet PO ×2 (08:01→16:47)
[2023-11-17] MEDS: Thiamine Hydrochloride 100 MG Tablet PO (08:01)
[2023-11-17] MEDS: Folic Acid 1 MG Tablet PO (08:01)
[2023-11-17] MEDS: Lisinopril 10 MG Tablet PO (08:01)
[2023-11-17] MEDS: Empagliflozin 25 MG Tablet PO (08:01)
[2023-11-17 08:30] LABS: Osmolality, Urine 645 mOsm/KG
--- NOTE | 2023-11-17 09:13 | CASEMGMT ---
Social Work- JM met with pt son, Kyle, who states that pt cannot return home. Cut states that he lives 15 min away and cannot be there every day to check on pt. Kyle reports that pt likes to sit and does not move much at home, but has been unsteady and unable to care for self properly for awhile at home. Kyle reports that pt is very stubborn and has refused all discussions about help at home or placement. JM discussed facility list with son and yesterday's PT results. Kyle will return later today. YONY Powell
[2023-11-17 10:13] LABS: Urine Sodium 6 mmol/L (Not Establ.)
--- NOTE | 2023-11-17 11:14 | CASEMGMT ---
Addendum entered by Lydia Lund 11/17/23 15:12: A list of SNF providers including quality and resource use data and consistent with the patient?s preferred geographic region, medical needs, and insurance network were provided from the CarePort Guide. SW left the list for pt son to review with pt for alternate choices. YONY Powell Original Note: Social Work- SW met with pt who exhibited significant confusion. Pt questioned where he was, did not recall therapy being in to meet with him, and shared different versions of living arrangements at home. Pt reported agreement to rehab at discharge and reported that he would like TCU as FOC. Given pt confusion, SW will follow up with pt son. YONY Powell
[2023-11-17] MEDS: Insulin Lispro 100 UNIT/ML INSULN.PEN SC ×2 (11:30→16:46)
[2023-11-17 11:49] LABS: Bedside Glucose 174 mg/dL (74-106)
[2023-11-17 12:10] LABS: PSA, Total 3.1 ng/mL (0.0-4.0)
--- NOTE | 2023-11-17 15:12 | CASEMGMT ---
Social Work- SW spoke with pt son, Kyle, to discuss the SNF list and pt confusion. Osito reports that he will be in this evening to review list with pt. Kyle questioned having VA or Medicare cover SNF. SW to call VA to discuss eligibility. YONY Powell
--- NOTE | 2023-11-17 15:14 | CASEMGMT ---
Social Work: JM called [place] and spoke with Mic [phone] ext [phone] to discuss pt eligibility. Germain reports that pt is eligible to be placed under VA benefits. [facility], [facility], [facility], [facility], [facility], and [facility] are local facilities in the VA plan. If pt is placed through VA, pt will need [facility], H &P, med list, PT/OT notes, and name of facility that has accepted emailed to [email or web address] with a fax of:[phone]. JM provided VA facility options to pt son. YONY Tabor
--- NOTE | 2023-11-17 16:41 | PCM.PN.HOSP ---
Reason for Visit Reason for Visit: Diagnoses Hypo-osmolality and hyponatremia (11/15/23) Alcohol abuse, uncomplicated (11/15/23) Pleural effusion, not elsewhere classified (11/15/23) Other malaise (11/15/23) Multiple fractures of ribs, unspecified side, initial encounter for closed fracture (11/15/23) Tobacco use (11/15/23) Subjective Subjective Patient was seen and examined this morning, nursing stated that the patient was confused at times, during my conversation with him this morning though he was not confused and he remembered having a thoracentesis yesterday. Objective Data Objective Data Vital Signs: Vital Signs Temp Pulse Resp BP Pulse Ox O2 Del Method 97.8 F 96 18 142/54 H 98 Room Air 11/17/23 14:09 11/17/23 14:09 11/17/23 14:09 11/17/23 14:09 11/17/23 14:09 11/17/23 14:09 Oxygen Delivery Method Room Air Weight: 88.178 kg Body Mass Index (BMI) 27.8 Intake & Output: Intake and Output for Last 24 Hours 11/15/23 11/16/23 11/17/23 23:59 23:59 23:59 Intake Total 1000 / 1000 1177.08 / 1327.08 150 / 150 Output Total 580 / 580 700 / 700 Balance 1000 / 1000 597.08 / 747.08 -550 / -550 Lab / Micro Data 11/16/23 06:27 11/16/23 06:27 Labs: Laboratory Results - last 24 hr 11/15/23 08:02: Urine Osmolality 645, Ur Random Sodium 6 11/15/23 20:00: Total PSA 3.1 11/16/23 22:05: POC Glucose 140 H 11/17/23 06:50: POC Glucose 154 H 11/17/23 11:29: POC Glucose 174 H Physical Exam Narrative alert, oriented x3, no apparent distress and average body habitus General Appearance: cooperative, well kempt and well developed Orientation / Consciousness: awake, oriented to person, oriented to place and oriented to time HEENT normocephalic, head/scalp atraumatic and moist oral mucous membranes Eyes PERRL, EOMs intact bilaterally and conjunctivae normal Neck supple, no JVD, thyroid normal and no carotid bruits General: trachea midline Resp normal respiratory effort, no retractions and no use of accessory muscles Resp Narrative: Patient has tenderness over his right rib cage laterally, decreased breath sounds are noted at the right base Auscultation: Negative for rales, rhonchi or wheezes Cardio regular rate, regular rhythm, S1 normal heart sound, S2 normal heart sound, no murmurs, no rub and no gallops GI normal to inspection, nondistended, normoactive bowel sounds, soft to palpation, non-tender and non-distended Extremity no clubbing, cyanosis or edema Skin no rashes or lesions noted General Skin Exam: no breakdown Neuro oriented x3, CN's II-XII intact bilaterally, moves all extremities, no focal motor deficits and no sensory deficits noted Sensorium / Orientation: awake and alert Speech: speech normal Psych affect normal Assessment & Plan Assessment/Plan (1) Multiple rib fractures involving four or more ribs: PLAN: Plan 1. Right hemothorax secondary to multiple right rib fractures, patient is not on supplemental oxygen at this #2 acute debility secondary to multiple right rib fractures with uncontrolled pain-patient is being seen by PT and OT, patient remains on programmed oxycodone #3 type 2 diabetes-patient will be placed on his home medications, I will hold his Amaryl, he will be placed on sliding scale insulin and his blood sugars will be monitored and he will receive sliding scale insulin as indicated #4 chronic depression-patient is on Cymbalta #5 essential hypertension-patient is on Zestril #6 right hepatic lesions noted on CT-patient will need follow-up concerning these areas as an outpatient, he understands this #6 left pulmonary [id number] was recommended Total clinical time spent by myself addressing the patient's medical issues, reviewing all of his data, and collaborating with patient's care team: 35 minutes Charges/Coding Visit Charges Inpatient E&M: 79672 Subs Hosp L2
[2023-11-17 17:08] LABS: Bedside Glucose 188 mg/dL (74-106)
[2023-11-17 18:08] LABS: AFP, Tumor Marker 2.2 ng/mL (0.0-8.4); Carbohydrate Ag 19-9 2261 22 U/mL (0-35); Carcinoembryonic Antigen 6.1 ng/mL (0.0-4.7)
[2023-11-17 22:12] LABS: Bedside Glucose 196 mg/dL (74-106)
[2023-11-18 00:27] VITALS: BP 101/56; PULSE 101; RESP 15; TEMP 36.7; O2SAT 96
[2023-11-18 02:04] VITALS: BP 95/82; PULSE 85; RESP 15; TEMP 36.6; O2SAT 95
[2023-11-18] MEDS: oxyCODONE 5 MG Tablet 10 MG PO ×2 (02:10→08:12)
[2023-11-18 06:07] VITALS: BP 152/68; PULSE 83; RESP 15; TEMP 36.4; O2SAT 96
[2023-11-18] MEDS: Acetaminophen 500 MG Tablet 1000 MG PO ×2 (06:16→13:28)
[2023-11-18 06:49] LABS: Bedside Glucose 101 mg/dL (74-106)
[2023-11-18 08:04] VITALS: BP 148/71; PULSE 78; RESP 18; TEMP 36.6; O2SAT 95
[2023-11-18] MEDS: Lisinopril 10 MG Tablet PO (08:12)
[2023-11-18] MEDS: Empagliflozin 25 MG Tablet PO (08:12)
[2023-11-18] MEDS: Folic Acid 1 MG Tablet PO (08:12)
[2023-11-18] MEDS: Thiamine Hydrochloride 100 MG Tablet PO (08:12)
[2023-11-18] MEDS: Calcium Carb/Vitamin D 1 TABLET Tablet PO (08:12)
[2023-11-18] MEDS: DULoxetine Hcl 30 MG Capsule PO (08:13)
--- NOTE | 2023-11-18 09:33 | CASEMGMT ---
Social Work- SW spoke with pt son who states that he spoke with pt last night and it was decided [facility] and [facility] were FOC. Kyle states that he is thinking pt will need LTC following rehab and prefers a a facility that he could remain at if needed. JM advised [facility] of choices for referral. YONY Powell
--- NOTE | 2023-11-18 09:58 | CASEMGMT ---
Addendum entered by Coco Mueller 11/18/23 10:58: Patient has chosen to return home. Both referrals cancelled. Coco Mueller DC Planning Asst. Original Note: Discharge Planning Referral sent via [facility] to [facility] and [facility]. Coco Mueller DC Planning Asst.
--- NOTE | 2023-11-18 10:35 | CASEMGMT ---
Social Work- JM spoke with who states pt is ready to d/c and is refusing to go to SNF. SW met with pt who states that he does not remember meeting with SW yesterday. Pt states that he woke up from a nap yesterday and thought someone had rearranged his house. Pt admits to confusion yesterday. Pt states that he does recall his son and son's coming in last evening and remembers having a conversation about rehab facilities. Pt states he does not recall agreeing to go to a facility. SW expressed concerns with pain and pt ability to be at home without services. Pt states that he eats TV dinners and pre-made food from [employer]. Pt is not interested in meals on wheels. PT states that he has no trouble preparing food. SW expressed concern about pt not having a medical alert and encouraged pt to keep phone in a pocket at all times. Pt is receptive to looking into a medical alert. SW expressed concern about bathroom safety and ambulation. Pt states that he is not concerned and has a wheeled walker and does not plan to fall again. Pt states that his sister lives next door and can walk over and assist as needed. Pt states that son stops frequently to assist pt as well. Pt is agreeable to [facility] referral and is understanding that is will take time to connect with services. Pt states I don't want anybody coming in for awhile; I want to be left alone so I can get used to being home. Pt declined information on substance abuse for alcohol and declines any other [facility] or in-home support information. JM called pt son while in room with pt to explain that pt is lucid this morning per physician and in interaction with JM and is able to make his own decisions at this time. JM discussed pt refusal for SNF and plans to return home. Pt is adamant that he does not need additional therapy. Pt son is agreeable to come flower buncher or picker pt at discharge and understanding of the plan. JM advised bedside nurse of plans to return home. SW advised RNCM of need for [facility] referral. SW to provide pt family information on medical alert, direction home, and delivered meals services.JM advised [facility] of cancelled referrals to [facility] and [facility]. YONY Powell
[2023-11-18] MEDS: Insulin Lispro 100 UNIT/ML INSULN.PEN SC (11:40)
--- NOTE | 2023-11-18 11:50 | CASEMGMT ---
Addendum entered by Xiomara Hyde 11/18/23 15:23: Into pt room, pt sleeping difficult to wake up. Informed pt that [facility] will not accept and pt stated he thought HHC was through [facility] not [facility] Reminded pt of earlier conversation when he denied other [facility] agencies and wanted to use the [facility]. Stated he does not remember conversation. Offered him a list of HHC agencies and he denied. Discussed SNF again, stated he just wants to go home. Sleeping in and out throughout conversation. Addendum entered by Xiomara Hyde 11/18/23 15:17: Received tc from Kelli from [facility] the [facility]. She states they are unable to accept pt for this service as pt declined SNF and this is what was recommended for him. She states she will forward this information to the [facility] provider and the provider will make a community [facility] referral. Addendum entered by Xiomara Hyde 11/18/23 13:59: Pt stated he has not other concerns at this time. Per SW son will be here to pick him up. Addendum entered by Xiomara Hyde 11/18/23 13:58: informed pt that refferral and paperwork sent to [facility] to set up HHC services. [facility] will call pt to schedule appt. Original Note: RN CM into pt room, pt lying in bed in no distress. Introduced self and role at [facility]. Pt stated he would like to return home with [facility]. Pt stated he walked around the halls and feels safe to DC home. Discussed ADLs and IADLs, states he has support at home and he wants to be left alone. Discussed PT and OT recommendations for placement and further therapy to get stronger, pt denies need for placement and prefers to return home. Asked pt if he would like a list of HH agencies, denied list stated he would like to use the [facility]. Agreeable to going to [facility] for follow up. Completed [facility] referral form.
[2023-11-18 11:59] LABS: Bedside Glucose 169 mg/dL (74-106)
--- NOTE | 2023-11-18 12:25 | PCM.DC ---
Discharge Instructions Diet Discharge Diet: 1800 Calorie Control Diet Activity Discharge Activity: Return to Normal Activity and Use Walker (if needed) Weight Bearing Status: Full weight bearing Follow Up Care Test Results: Test results from this visit will be discussed in further detail at your follow-up appointment, if applicable. Discharge Plan Admission Admit Date/Time: 11/15/23 19:48 Primary Reason for Your Visit: Right hemithorax, uncontrolled pain Attending Provider: Justin Rosario Primary Care Provider: ADONIS BOATENG Consulting Providers: Brendon Munson Discharge Orders/Prescriptions Prescriptions: New oxycodone 5 mg Tablet 5 mg PO Q4H PRN PRN (Reason: pain) 7 Days Qty: 35 0RF Continued glimepiride 1 tab PO DAILY Rx Instructions: 4 mg orally daily; multivitamin [Daily Multi-Vitamin] Tablet 1 tab PO DAILY duloxetine [Cymbalta] 30 mg capsule,delayed release(DR/EC) 30 mg PO DAILY empagliflozin 25 mg tablet 25 mg PO DAILY alogliptin 25 mg tablet 25 mg PO DAILY albuterol sulfate inhalation .1-2 puffs PRN (Reason: asthma/copd) lisinopril 10 mg tablet 10 mg PO DAILY magnesium oxide 420 mg tablet 420 mg PO DAILY Referrals / Follow Up: ADONIS BOATENG MD [Primary Care Provider] - Disposition Disposition (needs filled in before D/C Order can be placed): Home Health Service
[2023-11-18] MEDS: Magnesium Citrate 300 ML 150 ML PO (12:42)
--- NOTE | 2023-11-18 12:48 | PCM.DC.SUM ---
Providers Date of Admission: 11/15/23 Date of Discharge: 11/18/23 Primary Care Physician: ADONIS BOATENG MD Reason For Visit: RIGHT RIB FRACTURES WITH PAIN AND DEBILITY Diagnosis Discharge Diagnosis (1) Multiple rib fractures involving four or more ribs: Status: Acute Code(s): S22.49XA - Multiple fractures of ribs, unspecified side, initial encounter for closed fracture Plan 1. Right hemothorax secondary to multiple right rib fractures, patient is not on supplemental oxygen at this #2 acute debility secondary to multiple right rib fractures with uncontrolled pain-patient is being seen by PT and OT, patient remains on programmed oxycodone #3 type 2 diabetes-patient will be placed on his home medications, I will hold his Amaryl, he will be placed on sliding scale insulin and his blood sugars will be monitored and he will receive sliding scale insulin as indicated #4 chronic depression-patient is on Cymbalta #5 essential hypertension-patient is on Zestril #6 right hepatic lesions noted on CT-patient will need follow-up concerning these areas as an outpatient, he understands this #6 left pulmonary [id number] was recommended Total clinical time spent by myself addressing the patient's medical issues, reviewing all of his data, and collaborating with patient's care team: 35 minutes Medications at Discharge Home Medications glimepiride 1 tab PO DAILY diabetes 11/15/23 multivitamin (Daily Multi-Vitamin tablet) 1 tab PO DAILY 11/15/23 albuterol sulfate inhalation .1-2 puffs PRN asthma/copd 11/16/23 alogliptin 25 mg tablet 25 mg PO DAILY diabetes 11/16/23 duloxetine 30 mg capsule,delayed release (Cymbalta) 30 mg PO DAILY depression 11/16/23 empagliflozin 25 mg tablet 25 mg PO DAILY diabetes 11/16/23 lisinopril 10 mg tablet 10 mg PO DAILY blood pressure 11/16/23 magnesium oxide 420 mg tablet 420 mg PO DAILY supplement 11/16/23 oxycodone 5 mg tablet 5 mg PO Q4H PRN PRN pain 7 days #35 tabs 11/18/23 Hospital Course Operations None Procedures Thoracentesis Summary of Care Provided Minutes Spent on Discharge: 32 Hospital Course: A 78-year-old white male was seen in the emergency room at [facility] with complaints of severe right-sided rib pain, he had sustained a fall against his door jam at home about a week prior and had pain ever since then. Workup in the emergency room included a chest, abdomen, and pelvis CT, there is noted to be right posterior fifth through 10th rib fractures with underlying moderate low-density pleural effusion with associated compressive atelectasis of the posterior segment of the right lower lobe, there is noted to be 2 right hepatic lesions-one to 2.4 cm and the other 0.4 cm. There is noted to be a left pulmonary 5 mm nodule. Patient did not require any oxygen. Patient was admitted to [place] [address], he was placed on opioid pain medications and underwent a right thoracentesis with removal of approximately 580 cc of bloody fluid. This fluid was sent to the lab for cytology only. Patient improved his mobility during his hospital stay, there was discussion with the patient's family about the patient going to a nursing facility but the patient declined and instead wanted to go home. I had a discussion with the patient about following up with his PCP regarding his liver lesions, I told him this was very important. On 11/18/2023, patient was seen and examined: On examination he appeared in good health and spirits. Vital signs as documented. Skin warm and dry and without overt rashes. Neck without JVD, neck was supple, trachea midline, thyroid was normal. Lungs clear bilaterally, normal air movement was noted. Heart exam notable for regular rhythm, normal sounds and absence of murmurs, rubs or gallops. Abdomen unremarkable and without evidence of organomegaly, masses, or abdominal aortic enlargement. Bowel sounds are present, abdomen is not distended. Extremities nonedematous, no cyanosis was noted, no clubbing was noted. Neuro: Cranial nerves II through XII are grossly intact, no focal motor deficits were noted, sensation to light touch and pinprick intact, motor exam 5/5 throughout. Psych: Patient is alert and oriented x3, he does not appear anxious or depressed, he does not appear agitated. Patient was felt to be in stable condition for discharge home on 11/18/2023 Weight / BMI Weight Weight: 88.178 kg Body Mass Index (BMI) 27.8 ABG / Lab / Microbiology Data 11/16/23 06:27 11/16/23 06:27 Laboratory: Laboratory Results - last 24 hr 11/15/23 20:00: PSA Serial Monitor Not Reportable 11/16/23 06:27: Tumor Marker AFP 2.2, Carcinoembryonic Ag 6.1 H, CA 19-9 Antigen 22, CA 19-9 Serial Monitor Not Reportable 11/17/23 16:45: POC Glucose 188 H 11/17/23 21:33: POC Glucose 196 H 11/18/23 06:21: POC Glucose 101 11/18/23 11:39: POC Glucose 169 H D/C Instructions Discharge Diet: 1800 Calorie Control Diet Weight Bearing Status: Full weight bearing Meaningful Use Info Meaningful Use Meaningful Use Diagnoses (Choose all that apply): None applicable Ischemic Stroke Statin Dosing Therapy Reference: STATIN DOSE THERAPY REFERENCE: * Patients > 75 years receive moderate or high dose statin therapy. * Patients 75 years or YOUNGER should receive HIGH intensity statin dose unless contraindicated. You will be required to document reason for non-treatment if statin daily dose does not meet guidelines. HIGH DOSE STATIN THERAPY DAILY Atorvastatin > than or = to 40 mg Rosuvastatin > than or = to 20 mg Amlodipine + Atorvastatin > than or = to 2.5/40 mg Ezetimibe + Simvastatin 10/80 mg Simvastatin 80mg Discharge Plan Admission Admit Date/Time: 11/15/23 19:48 Primary Reason for Your Visit: Right hemithorax, uncontrolled pain Attending Provider: Justin Rosario Primary Care Provider: ADONIS BOATENG Consulting Providers: Brendon Munson Discharge Orders/Prescriptions Prescriptions: New oxycodone 5 mg Tablet 5 mg PO Q4H PRN PRN (Reason: pain) 7 Days Qty: 35 0RF Continued glimepiride 1 tab PO DAILY Rx Instructions: 4 mg orally daily; multivitamin [Daily Multi-Vitamin] Tablet 1 tab PO DAILY duloxetine [Cymbalta] 30 mg capsule,delayed release(DR/EC) 30 mg PO DAILY empagliflozin 25 mg tablet 25 mg PO DAILY alogliptin 25 mg tablet 25 mg PO DAILY albuterol sulfate inhalation .1-2 puffs PRN (Reason: asthma/copd) lisinopril 10 mg tablet 10 mg PO DAILY magnesium oxide 420 mg tablet 420 mg PO DAILY Referrals / Follow Up: ADONIS BOATENG MD [Primary Care Provider] - Disposition Disposition (needs filled in before D/C Order can be placed): Home Health Service Charges/Coding Visit Charges Inpatient E&M: 96200 Disch Hosp >30min
[2023-11-18 13:11] VITALS: BP 170/82; PULSE 93; RESP 18; TEMP 36.6; O2SAT 95
--- NOTE | 2023-11-18 13:45 | PHA.DC.MC.R ---
Pharmacy [facility] has performed discharge medication reconciliation and counseling for this patient. The patient's discharge medication list was reviewed for discrepancies and discrepancies were resolved. The patient was counseled on the following discharge medications and changes in medications for homegoing were reviewed. 1. OXYCODONE The Reason for Use, instructions for use, and potential side effects were reviewed for all new medications. The patient's questions regarding all of their medications were answered. The patient was able to verbally demonstrate an understanding of their discharge medications. The patient was counselled by Alvarez Troncoso PharmD candidate Medications at Discharge Home Medications glimepiride 1 tab PO DAILY diabetes 11/15/23 multivitamin (Daily Multi-Vitamin tablet) 1 tab PO DAILY 11/15/23 albuterol sulfate inhalation .1-2 puffs PRN asthma/copd 11/16/23 alogliptin 25 mg tablet 25 mg PO DAILY diabetes 11/16/23 duloxetine 30 mg capsule,delayed release (Cymbalta) 30 mg PO DAILY depression 11/16/23 empagliflozin 25 mg tablet 25 mg PO DAILY diabetes 11/16/23 lisinopril 10 mg tablet 10 mg PO DAILY blood pressure 11/16/23 magnesium oxide 420 mg tablet 420 mg PO DAILY supplement 11/16/23 oxycodone 5 mg tablet 5 mg PO Q4H PRN PRN pain 7 days #35 tabs 11/18/23
--- NOTE | 2023-11-18 15:27 | CASEMGMT ---
Social Work- SW called [facility] and spoke with Esthela to provide referral. SW shared concerns and interventions that were offered. Esthela will follow up with pt and family. YONY Powell
== END 2023-11-18 16:28 | disposition home health service (06) | DRG 183 ==
LOC: ED 17:26 → MS3 20:05
PROVIDERS: Admitting Provider Hospitalist; Emergency Provider Emergency Medicine; PCP Internal Medicine; Referring Provider Hospitalist; Visit Provider Internal Medicine
DX: S22.41XA Multiple fractures of ribs, right side, initial encounter for closed fracture (principal); S27.1XXA Traumatic hemothorax, initial encounter; E87.1 Hypo-osmolality and hyponatremia; E11.9 Type 2 diabetes mellitus without complications; J44.9 Chronic obstructive pulmonary disease, unspecified; I10 Essential (primary) hypertension; F10.10 Alcohol abuse, uncomplicated; K76.9 Liver disease, unspecified; F32.A Depression, unspecified; F17.210 Nicotine dependence, cigarettes, uncomplicated; W19.XXXA Unspecified fall, initial encounter; R63.4 Abnormal weight loss; R91.1 Solitary pulmonary nodule; R53.81 Other malaise; Z79.899 Other long term (current) drug therapy; Z79.84 Long term (current) use of oral hypoglycemic drugs; Z68.28 Body mass index [BMI] 28.0-28.9, adult
CPT/HCPCS: 32555; 36415; 71046; 71260; 74177; 80048; 80076; 81001; 82105; 82378; 82962; 83930; 83935; 84153; 84300; 85025; 85027; 85610; 85730; 86301; 88108; 88305; 88313; 88341; 88342; 94668; 97116; 97162; 97166; 97530; 97535; 97802; 99285; 99406; J7030; Q9967; A4216; J2405

== ENCOUNTER 2024-02-13 17:52 | Observation (INO) | payer OTHER, SELFPAY ==
[2024-02-13] VITALS (9 sets, daily range): BP systolic 110–148; BP diastolic 61–81; PULSE 84–105; RESP 14–22; TEMP 36.3–36.8; O2SAT 91–98; BMI 27.0; BMI 25.0
--- NOTE | 2024-02-13 18:05 | EKG12_ITS ---
Test Reason : Blood Pressure : / mmHG Vent. Rate : 096 BPM Atrial Rate : 096 BPM P-R Int : 180 ms QRS Dur : 088 ms QT Int : 374 ms P-R-T Axes : 109 046 065 degrees QTc Int : 472 ms Sinus rhythm with Premature atrial complexes Otherwise normal ECG Confirmed by MICHELLE ORTEZ, MATIAS ([id number]), news copy editor BERTO MARQUEZ ([id number]) on 02/14/2024 7:47:46 AM Referred By: IKER/ELIEZER/TL Confirmed By:MATIAS MARTINEZ MD
--- NOTE | 2024-02-13 18:05 | NURSING ---
This RN took squad report for pt. EMS told this RN that they would like to initiate a stroke alert. Dr. Andre notified of pt's sotry and symptoms and this RN was told by Dr. Andre to not call a stoke alert yet until the pt was evaluated in the room.
[2024-02-13 18:14] LABS: Absolute Lymphocyte Count 1.51 X10^3/uL (0.83-4.51); Absolute Neutrophil Count 6.7 X10^3/uL (2.0-7.7); Basophil# 0.05 X10^3/uL; Basophil% 0.5 % (0-1); Eosinophil# 0.27 X10^3/uL; Eosinophils% 2.8 % (0-5); Hematocrit 41.2 % (40-54); Hemoglobin 13.7 g/dL (13.0-16.5); Lymphocyte # 1.51 X10^3/ul (0.83-4.51); Lymphocyte % 15.6 % (19-41); Mean Corp Hgb Conc 33.3 g/dL (32-36); Mean Corpuscular Hgb 31.6 pg (27.0-32.0); Mean Corpuscular Volume 95.2 fL (80-94); Mean Platelet Vol. 10.2 fl (6.2-12.0); Monocyte# 1.16 X10^3/uL; NRBC Flagged by Analyzer 0 % (0-5); Neutrophil # 6.65 X10^3/uL (2.7-7.7); Neutrophil % 68.6 % (47-70); Platelet Count 274 K/mm3 (150-450); RBC Distribution Width CV 11.8 % (11.6-14.6); RBC Distribution Width SD 40.7 fl (35.1-43.9); Red Blood Count 4.33 M/mm3 (4.6-6.2); White Blood Count 9.7 K/mm3 (4.4-11.0)
[2024-02-13] MEDS: 0.9% Normal Saline (1000mL) 1,000 ML 999 ML IV (18:14)
--- NOTE | 2024-02-13 18:22 | EX.ED.DYSGE1 ---
HPI History of Present Illness Chief Complaint: Alt LOC Narrative Narrative: Patient brought in by EMS for a fall with altered loss of consciousness. Grandson currently present. Reported patient had a fall off a chair earlier this morning came to help his grandfather. He is normal. Apparently reported patient was on the phone ordering pizza when they heard a fall, therefore police was contacted to the home for a well check. EMS found him on the kitchen floor. He is altered. Moving all 4 extremities blood glucose 112. Patient not on any blood thinners. From records notes hypertension diabetes. Noted pain medicines, grandson stated couple months had a fall with rib fractures. Patient does live alone does not ambulate with any assistance per her grandson. Discussed with mental status, there has been waxing waning altered mental status at home. Patient denies any cough denies recent vomiting or diarrhea denies any urine symptoms. He does admit to not drinking much water. Prior similar symptoms: Yes [facility] Medical History (Updated 02/13/24 @ 22:[address] Yung Haro DO) Tobacco abuse Debility Hyponatremia Pleural effusion on right Multiple rib fractures involving four or more ribs Alcohol abuse Kidney stones Smoker Hypertension Diabetes Home Medications ?Medication ?Instructions ?Recorded ?Last Taken ?Type glimepiride 1 tab PO DAILY diabetes 11/15/23 Unknown History multivitamin (Daily Multi-Vitamin 1 tab PO DAILY 11/15/23 Unknown History tablet) albuterol sulfate 90 puff inhalation .1-2 puffs PRN 11/16/23 Unknown History asthma/copd alogliptin 25 mg tablet 25 mg PO DAILY diabetes 11/16/23 Unknown History empagliflozin 25 mg tablet 25 mg PO DAILY diabetes 11/16/23 Unknown History lisinopril 10 mg tablet 10 mg PO DAILY blood pressure 11/16/23 Unknown History magnesium oxide 420 mg tablet 420 mg PO DAILY supplement 11/16/23 Unknown History Allergy/AdvReac Type Severity Reaction Status Date / Time No Known Allergies Allergy Verified 11/15/23 16:58 Social History Smoking Status: Current every day smoker tobacco type: cigarettes ROS ROS ED Constitutional Constitutional ED: Denies chills, fever(s) or sweats Eyes Eyes: Denies change in vision ENT ENT ED: Denies dysphagia or sore throat Cardiovascular Cardiovascular: Denies chest pain, leg edema, palpitations or racing heartbeat Respiratory/Chest Respiratory/Chest: Denies cough, dyspnea or dyspnea on exertion Gastrointestinal Gastrointestinal: Denies abdominal pain, diarrhea, nausea or vomiting Genitourinary Genitourinary ED: Denies dysuria, hematuria or urinary frequency Musculoskeletal Musculoskeletal: Denies back pain, extremity pain or neck pain Integumentary Denies rash or wounds Neurologic Neurologic: Denies headache(s), paresthesias or weakness EXAM Physical Exam Const Vital Signs: 02/13/24 17:53 02/13/24 18:38 02/13/24 18:54 Temperature 98 F 98 F Temperature Source Temporal Temporal Pulse Rate 97 87 89 Respiratory Rate 18 22 H 19 H Blood Pressure 127/65 H 131/70 H 125/67 H Blood Pressure Mean 85 90 86 Pulse Ox 97 98 Oxygen Delivery Method Room Air Room Air 02/13/24 20:00 02/13/24 21:00 Temperature 97.9 F 98 F Temperature Source Tympanic Core Pulse Rate 84 89 Respiratory Rate 18 16 Blood Pressure 127/69 H 120/61 Blood Pressure Mean 88 80 Pulse Ox 91 96 Oxygen Delivery Method Room Air Room Air Positive well nourished and well developed Constitutional Narrative: GCS 14 for slight confusion General Appearance ED: well developed HEENT Reports dry mucous membranes normocephalic and atraumatic Mouth ED: Yes dry mucous membranes Mouth: dry mucous membranes Eyes EOMs intact bilaterally and conjunctivae normal General Eye ED: Yes normal appearance of both eyes Neck no lymphadenopathy and supple General: Negative for tenderness Chest Wall inspection of chest normal and palpation of chest normal Chest: Negative for tenderness Resp normal respiratory effort and normal air movement Resp Narrative: Symmetric breath sounds Effort and Inspection: symmetric chest movement; Negative for respiratory distress Cardio regular rate, regular rhythm and no murmurs Peripheral Pulses: pulses 2+ throughout GI normal to inspection, nondistended, normoactive bowel sounds and non-tender Palpation: Negative for guarding or rebound tenderness present Back/Spine no CVA tenderness and no thoracic nor lumbar tenderness Extremity normal to inspection Extremity Narrative: Negative logroll of the lower extremities. Upper extremities without tenderness. Pulses intact x 4. General Extremety ED: Negative for edema or tenderness General Extremity: Negative for edema Neuro no sensory deficits noted Neuro Narrative: Alert to person and place. Sensorium / Orientation: awake and alert Skin no rashes or lesions noted and no wounds MDM MDM MDM Narrative Medical decision making narrative: Interventions / MDM: Differential diagnosis: Syncope, closed head injury, encephalopathy, electrolyte abnormalities Diagnosis considered but do not suspect: Intracranial hemorrhage, fracture however image studies are negative. My EKG interpretation: Sinus rhythm 96, no ST or T wave changes. PACs noted. Imaging independently reviewed and interpreted by myself: CT brain/cervical spine: No acute process 1 view chest x-ray: Elevated right hemidiaphragm. External documents reviewed: N/A Test considered but not ordered:N/A ED course: Patient presents altered mental status initial concerns from EMS potential stroke when they called in however there is no focal deficits on exam. EKG sinus rhythm. With the fall confusion trauma scans head and neck obtained. Chest x-ray labs and urine ordered further evaluation. Given IV fluids for dry mucosal membranes. 2100: trauma scans negative chest x-ray negative. Labs slight hyponatremia 132. Creatinine normal at 0.75. White count 9.7 hemoglobin 13.7. In interim had 1 emesis treated with Zofran. Awaiting urine at this time however he denies any symptoms. Blood pressure stable. CK level at 211. Concerning syncope and encephalopathy I will speak with hospitalist for admission. I spoke with Dr. Vincent for admission. Re-evaluation: stable Disposition discussed with patient/family/significant other: Patient and family Case discussed with consulting clinician: Hospitalist This note was generated with [employer] dictation software. It may contain incorrect words, spelling, and punctuation that were not noted in checking the note before signing. Lab Data Attestation: I reviewed the patient's lab results. Labs: Laboratory Results - last 24 hr 02/13/24 18:00 WBC 9.7 RBC 4.33 L Hgb 13.7 Hct 41.2 MCV 95.2 H MCH 31.6 MCHC 33.3 RDW Std Deviation 40.7 RDW Coeff of Ana 11.8 Plt Count 274 MPV 10.2 Immature Gran % (Auto) 0.500 Neut % (Auto) 68.6 Lymph % (Auto) 15.6 L [place] % (Auto) 12.0 H Eos % (Auto) 2.8 Baso % (Auto) 0.5 Absolute Neuts (auto) 6.7 Absolute Lymphs (auto) 1.51 Nucleated RBC % 0 Sodium 132 L Potassium 4.1 Chloride 101 Carbon Dioxide 18.0 L Anion Gap 13 BUN 7 Creatinine 0.75 Estim Creat Clear Calc 73.65 Est GFR (MDRD) Af Amer 130 Est GFR (MDRD) Non-Af 107 BUN/Creatinine Ratio 9.4 L Glucose 138 H Calcium 8.3 L Total Bilirubin 0.30 AST 46 H ALT 34 Alkaline Phosphatase 82 Total Creatine Kinase 211 Total Protein 6.3 L Albumin 2.8 L Globulin 3.5 Albumin/Globulin Ratio 0.8 L TSH 1.370 Ethyl Alcohol 180.0 Radiography Diagnostic Testing: Clinical Impression(s) from Imaging Studies Brain CT 02/13/24 18:25 IMPRESSION: 1. No acute intracranial abnormality. 2. Senescent change with small vessel ischemia. Electronically Signed: Shekhar Flores MD at 19:06 EDT , Cervical Spine CT 02/13/24 18:25 IMPRESSION: 1. No acute osseous abnormalities of the cervical spine. 2. Degenerative changes with disc space narrowing and bony neural foraminal narrowing. Electronically Signed: Shekhar Flores MD at 19:07 EDT , Chest X-Ray 02/13/24 18:32 IMPRESSION: There is an opacity in the right lung base with possible focal elevation of the right hemidiaphragm. Electronically Signed: Severiano Blackburn DO at 18:57 EDT , Discharge Plan Dx/Rx/DC Orders Clinical Impression: Syncope, Encephalopathy acute, Multiple falls Disposition Disposition: Acute Care Hospital [facility] Discharge Date/Time: 02/13/24 23:23
--- NOTE | 2024-02-13 18:25 | CT_ITS ---
EXAM: CT CERVICAL SPINE WITHOUT INTRAVENOUS CONTRAST CLINICAL INDICATION: fall TECHNIQUE: Helically acquired images were obtained of the cervical spine without intravenous contrast. 2D reformatted images were reviewed. This CT exam was performed using one or more of the following dose reduction techniques: automated exposure control, adjustment of the mA and/or kV according to patient size, and/or use of iterative reconstruction technique. COMPARISON: No relevant prior studies available. FINDINGS: VERTEBRAE: Unremarkable. No fracture. No traumatic subluxation. No discrete lytic or blastic abnormality. Normal alignment. Normal craniocervical junction and cervicothoracic junction. DISCS/SPINAL CANAL/NEURAL FORAMINA: There is disc space narrowing at C5-6 and C6-7. There is left bony neural foraminal narrowing C5-6. SOFT TISSUES: Unremarkable. No prevertebral soft tissue swelling. LYMPH NODES: Unremarkable. No cervical adenopathy. LUNG APICES: Unremarkable as visualized. Clear. CT/Spine Cervical without Contras IMPRESSION: 1. No acute osseous abnormalities of the cervical spine. 2. Degenerative changes with disc space narrowing and bony neural foraminal narrowing. Electronically Signed: Shekhar Flores MD at 19:07 EDT ,
--- NOTE | 2024-02-13 18:25 | CT_ITS ---
EXAM: CT HEAD WITHOUT INTRAVENOUS CONTRAST CLINICAL INDICATION: fall TECHNIQUE: Multiple axial images were obtained of the head without intravenous contrast. This CT exam was performed using one or more of the following dose reduction techniques: automated exposure control, adjustment of the mA and/or kV according to patient size, and/or use of iterative reconstruction technique. COMPARISON: No relevant prior studies available. FINDINGS: BRAIN AND EXTRA-AXIAL SPACES: There is enlargement of ventricular system and cortical sulci. There is hypoattenuation in the periventricular white matter. No intra- or extra-axial hemorrhage. No evidence of acute infarct. No intracranial mass or mass effect. There is preservation of the mosley/white matter interface. Posterior fossa structures are unremarkable. Basal cisterns are patent. BONES/JOINTS: Unremarkable. No discrete lytic or blastic abnormalities. SINUSES: Unremarkable as visualized. Clear. MASTOID AIR CELLS: Unremarkable. Clear. ORBITS: Visualized globes, extraocular muscles, optic nerves and retrobulbar fat appear unremarkable. CT/Brain/Head without Contrast IMPRESSION: 1. No acute intracranial abnormality. 2. Senescent change with small vessel ischemia. Electronically Signed: Shekhar Flores MD at 19:06 EDT ,
--- NOTE | 2024-02-13 18:31 | ED.RN ---
PER DR. PAUL NO NIH OR STROKE DOCUMENTATION NECESSARY
--- NOTE | 2024-02-13 18:32 | RAD_ITS ---
INDICATION: confusion EXAMINATION/TECHNIQUE: X-RAY - XR Chest 1 View COMPARISON: November 16, 2023 FINDINGS: LINES/DEVICES: None. LUNGS: There is an opacity in the right lung base with possible focal elevation of the right hemidiaphragm. No pneumothorax. MEDIASTINUM AND CARDIOVASCULAR STRUCTURES: Cardiac silhouette not enlarged. Central airways and mediastinal contour are unremarkable. BONES AND SOFT TISSUES: Degenerative vertebral changes. Old left rib fractures. RAD/Chest 1 View (Portable) IMPRESSION: There is an opacity in the right lung base with possible focal elevation of the right hemidiaphragm. Electronically Signed: Severiano Blackburn DO at 18:57 EDT ,
[2024-02-13 18:53] LABS: ALB/GLOB Ratio 0.8 RATIO (0.9-2.4); AST(SGOT) 46 U/L (15-37); Alanine Aminotransfer ALT/SGPT 34 U/L (16-61); Albumin, Serum 2.8 g/dL (3.2-5.0); Alkaline Phosphatase 82 U/L (45-117); Anion Gap 13 (5-15); BUN 7 mg/dL (7-18); BUN/Creat Ratio 9.4 RATIO (10-20); CPK Total, Creatine Kinase 211 U/L (39-308); Calcium,Total 8.3 mg/dL (8.5-10.1); Chloride 101 mmol/L (98-107); Creatinine, Serum 0.75 mg/dL (0.70-1.30); EST Glomerular Filtration Rate 107 mL/min (>60); Est Glom Filt Rate - Afr Amer 130 mL/min (>60); Estimated Creatinine Clearance 73.65 ml/min; Globulin 3.5 g/dL (2.2-4.2); Glucose 138 mg/dL (74-106); Potassium 4.1 mmol/L (3.5-5.1); Protein, Total 6.3 g/dL (6.4-8.2); Sodium Level 132 mmol/L (136-145)
[2024-02-13] MEDS: Ondansetron 4 MG/2 ML Vial IV (19:41)
--- NOTE | 2024-02-13 21:03 | PCM.HP.STD ---
[facility] - General General Date of Admission: 02/13/24 Date of Service: 02/13/24 Chief Complaint: Fall with LOC x 2 followed by Confusion due to suspected Syncope. HPI Narrative OMKAR CHAWLA, is a 79 M with a past medical history of essential hypertension, DM-2; of unknown control, history of tobacco abuse, history of EtOH Abuse; ~6 beers daily, history of renal calculi, depression and OA; on prn Oxycodone after Right rib fractures x 6 with small hemothorax and pleural effusion with ~600 cc aspirated here in November 2023 who re-presents to [facility] ER complaining of fall with LOC x 2 followed by confusion due to suspected Syncope. Mr. Chawla has a very limited memory of the day's events so additional history was obtained from chart, medical staff, computer and his grandson at the bedside in the ER. According to the records the patient apparently fell of a chair earlier this morning and then his grandson stopped by to help him. He was on the phone ordering a pizza at the time of his original fall so the staff at the pizza shop contacted the local police for a wellness check. EMS then found him on his kitchen floor confused but moving all four extremities with a blood glucose of 112 mg/dL recorded at that time. This patient does live alone and his grandson stated he is usually able to ambulate without assistance. His grandson noted to the ER physician that he was having [id number] confusion at home and he agrees he had a similar presentation as a precursor to his previous admission with the ER physician concerned for possible underlying syncope as the reason for today's falls. There is no report of fever, chills, nausea, vomiting, diarrhea, constipation, dysuria, chest pain or SOB but he does admit to not drinking much water. He also denies drinking any EtOH or smoking any cigarettes today with no signs or symptoms of withdrawal at this time. In the ER he was noted to have unremarkable CT scans of the head and neck with suspected syncopal event complicated by clinical evidence of concussion with [id number] confusion after recent falls x 2 compounded by Generalized Weakness with Ambulatory Dysfunction with a INGA of 180 mg/dL consistent with Acute EtOH Intoxication in the setting of Chronic EtOH Abuse and he was then admitted to the PCU under observation status for ongoing care for a stay that is expected to be less than 2 midnights. PFSH Medical History (Updated 02/14/24 @ 06:[address] Yung Haro DO) Tobacco abuse Debility Hyponatremia Pleural effusion on right Multiple rib fractures involving four or more ribs Alcohol abuse Kidney stones Smoker Hypertension Diabetes Home Medications ?Medication ?Instructions ?Recorded ?Last Taken ?Type glimepiride 1 tab PO DAILY diabetes 11/15/23 Unknown History multivitamin (Daily Multi-Vitamin 1 tab PO DAILY 11/15/23 Unknown History tablet) albuterol sulfate 90 puff inhalation .1-2 puffs PRN 11/16/23 Unknown History asthma/copd alogliptin 25 mg tablet 25 mg PO DAILY diabetes 11/16/23 Unknown History empagliflozin 25 mg tablet 25 mg PO DAILY diabetes 11/16/23 Unknown History lisinopril 10 mg tablet 10 mg PO DAILY blood pressure 11/16/23 Unknown History magnesium oxide 420 mg tablet 420 mg PO DAILY supplement 11/16/23 Unknown History Allergy/AdvReac Type Severity Reaction Status Date / Time No Known Allergies Allergy Verified 11/15/23 16:58 Social History Smoking Status: Current every day smoker tobacco type: cigarettes ROS ROS Narrative Review of Systems: Constitutional: Patient denies fever or chills. Eyes: Patient denies changes in vision or discharge from eyes. ENT: Patient denies sore throat, runny nose or ear pain. Resp: Patient denies SOB or cough. CV: Patient admits to suspected syncope but he denies chest pain, palpitations or heart racing. GI: Patient denies abdominal pain, nausea, vomiting, diarrhea and constipation. : Patient denies dysuria or hematuria. MSK: Patient denies myalgias or arthralgias. Skin: Patient denies rash, abscess or jaundice. Psych: Patient denies suicidal, homicidal ideation or other symptoms of uncontrolled depression or anxiety. Neuro: Patient admits to having no significant memory of the days events but he denies headache, paresthesias or focal neurologic deficits. Allergy: Patient denies lip swelling, tongue swelling or urticaria. Hematology: Patient denies easy bleeding or easy bruisability. Endocrinology: Patient denies polyuria, polydipsia and polyphagia. 14 point ROS otherwise negative except for positives noted above. Vital Signs Vital Signs Vital Signs: 02/13/24 17:53 02/13/24 18:38 02/13/24 18:54 Temperature 98 F 98 F Temperature Source Temporal Temporal Pulse Rate 97 87 89 Respiratory Rate 18 22 H 19 H Blood Pressure 127/65 H 131/70 H 125/67 H Blood Pressure Mean 85 90 86 Pulse Ox 97 98 Oxygen Delivery Method Room Air Room Air 02/13/24 20:00 Temperature 97.9 F Temperature Source Tympanic Pulse Rate 84 Respiratory Rate 18 Blood Pressure 127/69 H Blood Pressure Mean 88 Pulse Ox 91 Oxygen Delivery Method Room Air Weight Weight: 182 lb 15.739 oz Body Mass Index (BMI) 27.0 Physical Exam Const alert, oriented x3, no apparent distress, average body habitus and healthy appearing Constitutional Narrative: Patient has a very limited recollection of his falls. General Appearance: cooperative HEENT normocephalic, head/scalp atraumatic, hearing grossly normal bilaterally and moist oral mucous membranes Eyes PERRL and EOMs intact bilaterally Neck no lymphadenopathy and supple Resp normal respiratory effort, no retractions, no use of accessory muscles and clear to auscultation bilaterally Cardio regular rate and regular rhythm GI normal to inspection, nondistended, normoactive bowel sounds, soft to palpation, non-tender and non-distended Extremity normal to inspection and full ROM Skin Skin Narrative: Patient has no evidence of rash, abscess or jaundice. Neuro oriented x3, CN's II-XII intact bilaterally, moves all extremities and no focal motor deficits Sensorium / Orientation: awake, alert, oriented to person, oriented to place and oriented to time Speech: speech normal Psych affect normal Results Medical Records Data Attestation: I reviewed the patient's medical records Lab / Micro Data Attestation: I reviewed the patient's lab results. 02/14/24 06:01 02/13/24 18:00 Labs: Laboratory Results - last 24 hr 02/13/24 18:00: WBC 9.7, RBC 4.33 L, Hgb 13.7, Hct 41.2, MCV 95.2 H, MCH 31.6, MCHC 33.3, RDW Std Deviation 40.7, RDW Coeff of Ana 11.8, Plt Count 274, MPV 10.2, Immature Gran % (Auto) 0.500, Neut % (Auto) 68.6, Lymph % (Auto) 15.6 L, [place] % (Auto) 12.0 H, Eos % (Auto) 2.8, Baso % (Auto) 0.5, Absolute Neuts (auto) 6.7, Absolute Lymphs (auto) 1.51, Nucleated RBC % 0, Sodium 132 L, Potassium 4.1, Chloride 101, Carbon Dioxide 18.0 L, Anion Gap 13, BUN 7, Creatinine 0.75, Estim Creat Clear Calc 73.65, Est GFR (MDRD) Af Amer 130, Est GFR (MDRD) Non-Af 107, BUN/Creatinine Ratio 9.4 L, Glucose 138 H, Calcium 8.3 L, Total Bilirubin 0.30, AST 46 H, ALT 34, Alkaline Phosphatase 82, Total Creatine Kinase 211, Total Protein 6.3 L, Albumin 2.8 L, Globulin 3.5, Albumin/Globulin Ratio 0.8 L Imaging Radiology Impression Brain CT 02/13/24 18:25 IMPRESSION: 1. No acute intracranial abnormality. 2. Senescent change with small vessel ischemia. Electronically Signed: Shekhar Flores MD at 19:06 EDT , Cervical Spine CT 02/13/24 18:25 IMPRESSION: 1. No acute osseous abnormalities of the cervical spine. 2. Degenerative changes with disc space narrowing and bony neural foraminal narrowing. Electronically Signed: Shekhar Flores MD at 19:07 EDT , Chest X-Ray 02/13/24 18:32 IMPRESSION: There is an opacity in the right lung base with possible focal elevation of the right hemidiaphragm. Electronically Signed: Severiano Blackburn DO at 18:57 EDT , Assessment & Plan Assessment/Plan (1) Acute alcohol intoxication: QUALIFIERS: Complication of substance-induced condition: with unspecified complication Qualified Code(s): F10.929 - Alcohol use, unspecified with intoxication, unspecified (2) Syncope: QUALIFIERS: Syncope type: unspecified Qualified Code(s): R55 - Syncope and collapse (3) Multiple falls: (4) Concussion: QUALIFIERS: Encounter type: initial encounter Loss of consciousness presence/duration: unknown LOC status Qualified Code(s): S06.0XAA - Concussion with loss of consciousness status unknown, initial encounter (5) Generalized weakness: (6) Ambulatory dysfunction: (7) Alcohol abuse: (8) Tobacco abuse: PLAN: Plan 1. Fall x 2 due to suspected Syncope complicated by clinical evidence of Concussion with hvyeoa-szz-zayffb confusion after falls - Admit to PCU under observation status for full syncope workup. Check echocardiogram to evaluate LVEF. Check Lexiscan NST in AM to assess for possible underlying ischemia. Check carotid doppler to evaluate for stenosis. Check TSH, B12, Folate, UDS and INGA to evaluate for potentially reversible causes of confusion. Otherwise, minimize [employer]-active medications to allow sensorium to clear. 2. Generalized Weakness with Ambulatory Dysfunction arising from #1 - PT/OT and Case Management to consult and treat in the AM on-rounds for further recommendations with help appreciated in advance. 3. Acute EtOH Intoxication with INGA of 180 mg/dL present on admission in the setting of Chronic EtOH Abuse; with patient routinely drinking ~6 beers daily complicating and likely causing #1 & #2 - EtOH Cessation was strongly encouraged. Start Phenobarbital taper to prevent withdrawal. 4. Tobacco Abuse compounding #1 - #3 - Tobacco Cessation was strongly encouraged with Nicotine patch offered to control cravings. 5. Recent admission here for treatment of Right rib fractures x 6 with small hemothorax and pleural effusion with ~600 cc aspirated here in November 2023 adding to the complexity of #1- #4 - Noted with suspected syncopal event preceding that fall as well. His CXR shows elevation of the Right hemidiaphragm with a density that is suspected to be sequelae from his recent traumatic injury. 6. Essential hypertension - Continue home regimen plus give prn IV Hydralazine for systolic blood pressure > 160 mmHg. 7. DM-2; of unknown control - ADA diet. FSBS q. AC/HS plus SSI of lowest intensity. Check HgbA1c to objectively evaluate quality of diabetic control. 8. History of renal calculi - Noted. 9. Depression - Resume current regimen. 10. OA; on prn Oxycodone - Noted. Minimize opiates as much as possible to allow sensorium to clear. 11. DVT prophylaxis - Lovenox 40 mg sq daily. Total time: Approximately 85 minutes. Charges/Coding Visit Charges OBSV E&M: 61214 Observ/hosp same date L3
[2024-02-13] MEDS: Lactated Ringers 1,000 ML 70 ML IV (22:08)
--- NOTE | 2024-02-13 23:02 | ED.RN ---
JESSIE Oumar walked into pts room to take him to the floor. Pt was found on the ground laying on his back. Both side-rails were up and call light was in reach. Pt states that he did not hit his head and is having no pain. Dr. Cochran. No new orders.
--- NOTE | 2024-02-13 23:06 | CDU_ITS ---
Reason For Study: Syncope Rt. Velocities/BP Lt. Velocities/BP Prox CCA 86.1/10.2 cm/sec. Prox CCA 73/11.6 cm/sec. Mid CCA 78.4/12.4 cm/sec. Mid CCA 86.1/11.3 cm/sec. Dist CCA 69.6/9.1 cm/sec. Dist CCA 94.9/13.5 cm/sec. Prox ICA 75.3/10.2 cm/sec. Prox ICA 52/10.2 cm/sec. Mid ICA 76.5/18.8 cm/sec. Mid ICA 77.3/13.5 cm/sec. Dist ICA 77.7/15.1 cm/sec. Dist ICA 57.7/13 cm/sec. Rt. ICA/CCA = 0.99. Lt. ICA/CCA = 0.90. Prox ECA 169.7/9.4 cm/sec. Prox ECA 93.7 cm/sec. Rt. Vert. 38.1/6 cm/sec. Lt. Vert. 47.2/8.8 cm/sec. Right Extracranial There is homogeneous, smooth atherosclerotic plaque noted in the right common carotid artery. There is heterogeneous, irregular atherosclerotic plaque noted in the right internal carotid artery. There is homogeneous, smooth atherosclerotic plaque noted in the right external carotid artery. Antegrade flow is noted in the right vertebral artery. Left Extracranial There is homogeneous, smooth atherosclerotic plaque noted in the left common carotid artery. There is heterogeneous, irregular atherosclerotic plaque noted in the left internal carotid artery. There is homogeneous, smooth atherosclerotic plaque noted in the left external carotid artery. Antegrade flow is noted in the left vertebral artery. Procedure Carotid Duplex 82991. This is a Carotid Duplex examination using B-mode, color flow and specral Doppler. Exam performed in department. VL/Carotid Duplex Ultrasound Interpretation Summary Mild (<50%) stenosis right extracranial internal carotid. Mild (<50%) stenosis left extracranial internal carotid. Patent and antegrade vertebrals bilaterally. Ordering Physician: Yung Haro Referring Physician: Tabatha Irene Performed By: Jess Rob RVT
--- NOTE | 2024-02-13 23:06 | ECHOD_ITS ---
Reason For Study: SYNCOPE Procedure This was a 2D Doppler, Color Flow transthoracic echocardiogram. The study was technically difficult. Contrast injection was performed. Exam performed in department. Left Ventricle Normal LV size. Left ventricular systolic function is normal. The left ventricular ejection fraction is 60 %. Stage 1 diastolic dysfunction. No regional wall motion abnormalities noted. Right Ventricle Normal RV size. Normal systolic function. Atria Normal left atrium. Normal right atrium. Mitral Valve Normal mitral valve. Tricuspid Valve Normal tricuspid valve. Great Vessels Normal aortic root. Pericardium/Pleural No pericardial effusion. Medication Diluted definity 2.5ml given slow IV push to enhance endocardial definition. MMode/2D Measurements & Calculations LVIDd: 3.7 cm IVSd: 1.3 cm LVOT diam: 2.0 cm LVIDs: 2.5 cm LVPWd: 1.2 cm LVOT area: 3.1 cm2 RVDd: 3.1 cm FS: 34.1 % Ao root diam: 3.6 cm asc Aorta Diam: 3.2 cm LAV(MOD-bp): 33.9 ml LAV(MOD-bp) Indexed: 17.2 ml/m2 LAV(MOD-sp2): 38.0 ml LAV(MOD-sp4): 30.6 ml LVAd ap4: 30.8 cm2 LVAd ap2: 28.2 cm2 SV(MOD-sp4): 57.5 ml LVLd ap4: 8.3 cm LVLd ap2: 8.1 cm EDV(MOD-sp4): 95.6 ml EDV(MOD-sp2): 80.4 ml EDV(sp4-el): 96.8 ml EDV(sp2-el): 83.6 ml LVAs ap4: 17.9 cm2 LVAs ap2: 14.9 cm2 LVLs ap4: 7.1 cm LVLs ap2: 6.7 cm ESV(MOD-sp4): 38.0 ml ESV(MOD-sp2): 27.3 ml ESV(sp4-el): 38.2 ml ESV(sp2-el): 28.3 ml EF(MOD-sp4): 60.2 % EF(MOD-sp2): 66.0 % EF(sp4-el): 60.6 % SV(MOD-sp2): 53.1 ml SV(sp4-el): 58.7 ml LA A4 area: 14.1 cm2 LA dimension(2D): 3.2 cm RA A4 area: 7.8 cm2 TAPSE: 2.1 cm Time Measurements MV dec time: 0.24 sec Doppler Measurements & Calculations MV E max gokul: 61.1 cm/sec Lat Peak E' Gokul: 6.5 cm/sec Med Peak E' Gokul: 8.0 cm/sec MV A max gokul: 92.2 cm/sec E/E' lat: 9.3 E/E' med: 7.7 MV E/A: 0.66 MV dec slope: 252.9 cm/sec2 Ao V2 max: 123.1 cm/sec LV V1 max: 108.0 cm/sec Ao max P.1 mmHg LV V1 max P.7 mmHg Ao V2 mean: 87.8 cm/sec LV V1 mean P.8 mmHg Ao mean P.4 mmHg LV V1 mean: 80.3 cm/sec Ao V2 VTI: 26.1 cm LV V1 VTI: 24.5 cm AV (velocity ratio): 0.94 VILLA(I,D): 2.9 cm2 VILLA(V,D): 2.7 cm2 SV(LVOT): 76.8 ml PA V2 max: 79.6 cm/sec PA max PG (full): 0.75 mmHg ECHO/Echo Complete W/ Contrast Interpretation Summary Normal LV size. Left ventricular systolic function is normal. The left ventricular ejection fraction is 60 %. Stage 1 diastolic dysfunction. Contrast injection was performed. Ordering Physician: Yung Haro Performed By: Laxmi Shay RDCS
[2024-02-14] MEDS: Phenobarbital 32.4 MG Tablet 97.2 MG PO ×2 (00:06→05:03)
[2024-02-14 00:35] LABS: Troponin-I HS 25 pg/mL (3.0-78.0)
[2024-02-14] MEDS: Lactated Ringers 1,000 ML 70 ML IV ×2 (00:57→17:35)
[2024-02-14] MEDS: 0.9% Saline Lock 10 ML Syringe IV ×2 (00:57→05:09)
[2024-02-14 02:36] LABS: Bacteria 0 SEEN /hpf (None Seen); Mucous, Urine 0 SEEN /hpf (<or=2+); Squamous Epithelial Cells - UA 0 SEEN /hpf (0-5); White Blood Cells 0 SEEN /hpf (0-5)
[2024-02-14 02:40] LABS: Color, Urine Yellow (Yellow); Glucose, Dipstick Normal (Normal); Ketone-Dipstick 5 mg/dl (Negative); Leukocyte Esterase-Dipstick 25 /ul (Negative); Nitrite-Dipstick Negative (Negative); Occult Blood-Urine 150 /ul (Negative); Protein-Dipstick Negative (Negative); Specific Gravity, Urine 1.015 (1.002-1.030); Urine Bilirubin Dipstick Negative (Negative); Urine Clarity Clear (Clear); Urine Urobilinogen Normal (Normal)
[2024-02-14 03:00] LABS: Amphetamine Urine VISTA NEGATIVE (<1000 ng/mL); Barbiturate Urine VISTA NEGATIVE (< 200 ng/mL); Benzodiazepine Urine VISTA NEGATIVE (< 200 ng/mL); Cocaine Urine VISTA NEGATIVE (< 300 ng/mL); Ecstacy Urine VISTA NEGATIVE (< 500 ng/mL); Methadone Urine VISTA NEGATIVE (< 300 ng/mL); PCP Urine VISTA NEGATIVE (< 25 ng/mL); THC Urine VISTA NEGATIVE (< 50 ng/mL); Vista UDS pH Range 5
[2024-02-14 03:02] LABS: Red Blood Cells-Urine 0-5 SEEN /hpf (0-5)
[2024-02-14 03:45] LABS: Troponin-I HS 28 pg/mL (3.0-78.0)
[2024-02-14 04:12] VITALS: BMI 25.0
[2024-02-14] MEDS: Ondansetron 4 MG/2 ML Vial IV (05:03)
[2024-02-14 05:14] VITALS: BP 144/64; PULSE 97; RESP 18; TEMP 36.7; O2SAT 93
[2024-02-14 06:12] LABS: Absolute Lymphocyte Count 0.92 X10^3/uL (0.83-4.51); Absolute Neutrophil Count 5.9 X10^3/uL (2.0-7.7); Basophil# 0.03 X10^3/uL; Basophil% 0.4 % (0-1); Eosinophil# 0.17 X10^3/uL; Eosinophils% 2.2 % (0-5); Hematocrit 39.8 % (40-54); Hemoglobin 13.4 g/dL (13.0-16.5); Lymphocyte # 0.92 X10^3/ul (0.83-4.51); Lymphocyte % 11.7 % (19-41); Mean Corp Hgb Conc 33.7 g/dL (32-36); Mean Platelet Vol. 10.3 fl (6.2-12.0); Monocyte# 0.83 X10^3/uL; Monocyte% 10.6 % (0-10); NRBC Flagged by Analyzer 0 % (0-5); Neutrophil # 5.88 X10^3/uL (2.7-7.7); Neutrophil % 74.8 % (47-70); Platelet Count 228 K/mm3 (150-450); RBC Distribution Width CV 11.8 % (11.6-14.6); RBC Distribution Width SD 40.8 fl (35.1-43.9); Red Blood Count 4.19 M/mm3 (4.6-6.2); White Blood Count 7.9 K/mm3 (4.4-11.0)
[2024-02-14 06:40] LABS: AST(SGOT) 22 U/L (15-37); Alanine Aminotransfer ALT/SGPT 26 U/L (16-61); Albumin, Serum 2.9 g/dL (3.2-5.0); Alkaline Phosphatase 82 U/L (45-117); Anion Gap 7 (5-15); BUN 6 mg/dL (7-18); BUN/Creat Ratio 9.1 RATIO (10-20); Calcium,Total 8.3 mg/dL (8.5-10.1); Chloride 107 mmol/L (98-107); Creatinine, Serum 0.66 mg/dL (0.70-1.30); EST Glomerular Filtration Rate 124 mL/min (>60); Est Glom Filt Rate - Afr Amer 150 mL/min (>60); Estimated Creatinine Clearance 78.44 ml/min; Globulin 2.9 g/dL (2.2-4.2); Glucose 138 mg/dL (74-106); Magnesium 1.5 mg/dL (1.6-2.6); Phosphorus 3.5 mg/dL (2.5-4.9); Potassium 3.7 mmol/L (3.5-5.1); Protein, Total 5.8 g/dL (6.4-8.2); Sodium Level 137 mmol/L (136-145); Troponin-I HS 27 pg/mL (3.0-78.0)
--- NOTE | 2024-02-14 08:26 | PN.HOSP_ITS ---
Reason for Visit Reason for Visit: Diagnoses Alcohol abuse, uncomplicated (02/13/24) Alcohol use, unspecified with intoxication, unspecified (02/13/24) Encephalopathy, unspecified (02/13/24) Difficulty in walking, not elsewhere classified (02/13/24) Repeated falls (02/13/24) Weakness (02/13/24) Syncope and collapse (02/13/24) Concussion with loss of consciousness status unknown, initial encounter (02/13/24) Tobacco use (02/13/24) Subjective Subjective Has not recollection of falls. Objective Data Objective Data Vital Signs: Vital Signs Temp Pulse Resp BP Pulse Ox O2 Del Method 36.7 C 97 18 144/64 H 93 Room Air 02/14/24 05:14 02/14/24 05:14 02/14/24 05:14 02/14/24 05:14 02/14/24 05:14 02/14/24 05:25 Oxygen Delivery Method Room Air Weight: 81.5 kg Body Mass Index (BMI) 25.0 Intake & Output: Intake and Output for Last 24 Hours 02/12/24 02/13/24 02/14/24 23:59 23:59 23:59 Intake Total 1000 / 1000 443.34 / 443.34 Output Total 515 / 515 Balance 1000 / 1000 -71.66 / -71.66 Lab / Micro Data 02/14/24 06:01 02/14/24 06:01 Labs: Laboratory Results - last 24 hr 02/13/24 18:00: WBC 9.7, RBC 4.33 L, Hgb 13.7, Hct 41.2, MCV 95.2 H, MCH 31.6, MCHC 33.3, RDW Std Deviation 40.7, RDW Coeff of Ana 11.8, Plt Count 274, MPV 10.2, Immature Gran % (Auto) 0.500, Neut % (Auto) 68.6, Lymph % (Auto) 15.6 L, M papo % (Auto) 12.0 H, Eos % (Auto) 2.8, Baso % (Auto) 0.5, Absolute Neuts (auto) 6.7, Absolute Lymphs (auto) 1.51, Nucleated RBC % 0, Sodium 132 L, Potassium 4.1, Chloride 101, Carbon Dioxide 18.0 L, Anion Gap 13, BUN 7, Creatinine 0.75, Estim Creat Clear Calc 73.65, Est GFR (MDRD) Af Amer 130, Est GFR (MDRD) Non-Af 107, BUN/Creatinine Ratio 9.4 L, Glucose 138 H, Calcium 8.3 L, Total Bilirubin 0.30, AST 46 H, ALT 34, Alkaline Phosphatase 82, Total Creatine Kinase 211, T otal Protein 6.3 L, Albumin 2.8 L, Globulin 3.5, Albumin/Globulin Ratio 0.8 L, Folate 18.40, TSH 1.370, Ethyl Alcohol 180.0 02/14/24 00:04: Troponin I High Sens 02/14/24 02:20: Urine Color Yellow, Urine Clarity Clear, Urine pH 6.0, Ur Specific [place] 1.015, Urine Protein Negative, Urine Glucose (UA) Normal, Urine Ketones 5 H, Urine Occult Blood 150 H, Urine Nitrite Negative, Urine Bilirubin Negative, Urine Urobilinogen Normal, Ur Leukocyte Esterase 25 H, Urine RBC 0-5 SEEN, Urine WBC 0 SEEN, Ur Squamous Epith Cells 0 SEEN, Urine Bacteria 0 SEEN, Urine Mucus 0 SEEN, Urine Opiates Screen NEGATIVE, Urine Methadone Screen NEGATIVE, Ur Barbiturates Screen NEGATIVE, Ur Phencyclidine Scrn NEGATIVE, Ur Amphetamines Screen NEGATIVE, MDMA (Ecstasy) Screen NEGATIVE, U Benzodiazepines Scrn NEGATIVE, Urine Cocaine Screen NEGATIVE, U Cannabinoids Screen NEGATIVE, Ur Drug Screen Comment 02/14/24 02:59: Troponin I High Sens 28 02/14/24 06:01: WBC 7.9, RBC 4.19 L, Hgb 13.4, Hct 39.8 L, MCV 95.0 H, MCH 32.0, MCHC 33.7, RDW Std Deviation 40.8, RDW Coeff of Ana 11.8, Plt Count 228, MPV 10.3, Immature Gran % (Auto) 0.300, Neut % (Auto) 74.8 H, Lymph % (Auto) 11.7 L, [place] % (Auto) 10.6 H, Eos % (Auto) 2.2, Baso % (Auto) 0.4, Absolute Neuts (auto) 5.9, Absolute Lymphs (auto) 0.92, Nucleated RBC % 0, Sodium 137, Potassium 3.7, Chloride 107, Carbon Dioxide 23.0, Anion Gap 7, BUN 6 L, Creatinine 0.66 L, Estim Creat Clear Calc 78.44, Est GFR (MDRD) Af Amer 150, Est GFR (MDRD) Non-Af 124, BUN/Creatinine Ratio 9.1 L, Glucose 138 H, Calcium 8.3 L, Phosphorus 3.5, M agnesium 1.5 L, Total Bilirubin 0.60, AST 22, ALT 26, Alkaline Phosphatase 82, Troponin I High Sens 27, Total Protein 5.8 L, Albumin 2.9 L, Globulin 2.9, Albumin/Globulin Ratio 1.0 Radiography Diagnostic Testing: Radiology Impression Brain CT 02/13/24 18:25 IMPRESSION: 1. No acute intracranial abnormality. 2. Senescent change with small vessel ischemia. Electronically Signed: Shekhar Flores MD at 19:06 EDT , Cervical Spine CT 02/13/24 18:25 IMPRESSION: 1. No acute osseous abnormalities of the cervical spine. 2. Degenerative changes with disc space narrowing and bony neural foraminal narrowing. Electronically Signed: Shekhar Flores MD at 19:07 EDT , Chest X-Ray 02/13/24 18:32 IMPRESSION: There is an opacity in the right lung base with possible focal elevation of the right hemidiaphragm. Electronically Signed: Severiano Blackburn DO at 18:57 EDT , Physical Exam Const alert and no apparent distress HEENT head/scalp atraumatic and moist oral mucous membranes Resp normal respiratory effort, no retractions, no use of accessory muscles and clear to auscultation bilaterally Cardio regular rate, regular rhythm, S1 normal heart sound and S2 normal heart sound GI normal to inspection, nondistended, normoactive bowel sounds, soft to palpation, non-tender and non-distended Neuro Sensorium / Orientation: awake and alert Assessment & Plan Assessment/Plan (1) Acute alcohol intoxication: QUALIFIERS: Complication of substance-induced condition: with unspecified complication Qualified Code(s): F10.929 - Alcohol use, unspecified with intoxication, unspecified (2) Syncope: QUALIFIERS: Syncope type: unspecified Qualified Code(s): R55 - Syncope and collapse (3) Multiple falls: (4) Concussion: QUALIFIERS: Encounter type: initial encounter Loss of consciousness presence/duration: unknown LOC status Qualified Code(s): S06.0XAA - Concussion with loss of consciousness status unknown, initial encounter (5) Generalized weakness: (6) Ambulatory dysfunction: (7) Alcohol abuse: (8) Tobacco abuse: PLAN: Plan Syncope * Fell at home. Possibly from intoxication. Unclear if he had post-concussion syndrome. * head CT showed no acute process. No acute intracranial abnormality. Echo shows an EF 60%. * Stress ordered. Carotid duplex. EEG. * TSH, folate WNL. B12 pending. * Advised pt, since he lives by himself, to discontinue alcohol completely. Debility * PT OT evaluate and treat. Alcohol abuse: * Alcohol level was 180 on admission. * on phenobarbital taper Chronic conditions: * Essential hypertension: lisinopril. * DM-2: SSI. resume glimepiride and empagliflozin VTE prophylaxis: enoxaparin. Charges/Coding Visit Charges Inpatient E&M: 82369 Subs Hosp L2
[2024-02-14 09:08] LABS: Vitamin B12 973 pg/mL (211-911)
[2024-02-14] MEDS: Magnesium Sulfate 2 GM in Dextrose 5%-Water (100mL Bag) 100 ML IV (09:55)
[2024-02-14 09:57] VITALS: BP 152/69; PULSE 88; RESP 14; TEMP 36.8; O2SAT 93
[2024-02-14] MEDS: Phenobarbital 32.4 MG Tablet 64.8 MG PO ×3 (12:24→21:34)
[2024-02-14] MEDS: Multivitamins,Therapeutic Tablet 1 TABLET PO (12:25)
[2024-02-14] MEDS: Lisinopril 10 MG Tablet PO (12:25)
[2024-02-14] MEDS: Empagliflozin 25 MG Tablet PO (12:25)
[2024-02-14] MEDS: DULoxetine Hcl 30 MG Capsule PO (12:27)
[2024-02-14 15:50] VITALS: BP 155/86; PULSE 92; RESP 12; TEMP 36.6; O2SAT 93
--- NOTE | 2024-02-14 16:18 | CASEMGMT ---
SW met with patient. Introduced self and role at [facility]. SW asked patient about going somewhere for rehab short term. Patient said his [facility] wouldn't pay for it. SW let patient know they would pay for it. Patient then said he had to use the restroom. SW told patient SW will check back with him tomorrow. Suzy BARKER
--- NOTE | 2024-02-14 16:32 | CASEMGMT ---
Met with patient to complete MAGUIRE form. MAGUIRE form explained to patient who voiced understanding but declined to sign. Original form placed in pt?s chart and copy provided to patient. Coco Mueller, Discharge Planning Asst
--- NOTE | 2024-02-14 17:28 | STRESSREP ---
Stress Test Report Pharmacologic myocardial perfusion stress test. 79-year-old man with a history of syncope Resting EKG demonstrates sinus rhythm with a rate of 97 bpm. Resting blood pressure is 159/81 mmHg. 0.4 mg of regadenoson was infused per usual protocol followed by rapid intravenous saline flush injection. Continuous EKG monitoring was performed. The maximum heart rate was 103 bpm which was 73% of max impacted heart rate the maximum workload was 1 metabolic equivalent. At rest there were no ST or T wave changes noted to suggest ischemia and at peak infusion nonspecific ST changes were noted which did not meet the criteria for ischemia. No clinical angina is noted. The final blood pressure was 146/86 mmHg. Myocardial perfusion protocol. 12 mCi of technetium 99m sestamibi was injected at rest. 0.4 mg of regadenoson was infused per usual protocol. At peak infusion 34.4 mCi of technetium 99m sestamibi was injected stress images were obtained stress and rest images were reconstructed and compared in the short axis vertical long and horizontal long axis. Gated images were also obtained. Perfusion SPECT analysis: Review of the stress images demonstrate normal uptake of tracer noted in all areas of the myocardium. The resting images similar demonstrated normal uptake of tracer noted in all areas of the myocardium. No areas of reversibility are noted to suggest ischemia and no previous infarct is noted. Gated SPECT analysis: The gated ejection fraction is 75%. Conclusion: Normal pharmacologic myocardial perfusion stress test. Preserved ejection fraction.
[2024-02-14 21:38] VITALS: BP 148/101; PULSE 89; RESP 18; TEMP 36.4; O2SAT 96
[2024-02-15 00:13] VITALS: BP 153/74; PULSE 79; RESP 18; TEMP 36.6; O2SAT 95
[2024-02-15] MEDS: Phenobarbital 32.4 MG Tablet 64.8 MG PO ×4 (00:16→12:32)
[2024-02-15 03:33] VITALS: BMI 25.0
[2024-02-15 04:11] VITALS: BP 139/77; PULSE 76; RESP 18; TEMP 36.3; O2SAT 97
[2024-02-15] MEDS: Lactated Ringers 1,000 ML 70 ML IV ×2 (06:38→08:15)
[2024-02-15 06:46] LABS: Phosphorus 3.7 mg/dL (2.5-4.9)
[2024-02-15 06:57] VITALS: O2SAT 93
[2024-02-15] MEDS: Glimepiride 4 MG Tablet PO (08:23)
--- NOTE | 2024-02-15 08:48 | PCM.PN.HOSP ---
Reason for Visit Reason for Visit: Diagnoses Alcohol abuse, uncomplicated (02/13/24) Alcohol use, unspecified with intoxication, unspecified (02/13/24) Encephalopathy, unspecified (02/13/24) Difficulty in walking, not elsewhere classified (02/13/24) Repeated falls (02/13/24) Weakness (02/13/24) Syncope and collapse (02/13/24) Concussion with loss of consciousness status unknown, initial encounter (02/13/24) Tobacco use (02/13/24) Subjective Subjective Feels well. No events overnight. Objective Data Objective Data Vital Signs: Vital Signs Temp Pulse Resp BP Pulse Ox O2 Del Method 36.3 C L 76 18 139/77 H 93 Room Air 02/15/24 04:11 02/15/24 04:11 02/15/24 04:11 02/15/24 04:11 02/15/24 06:57 02/15/24 06:57 Oxygen Delivery Method Room Air Weight: 81.6 kg Body Mass Index (BMI) 25.0 Intake & Output: Intake and Output for Last 24 Hours 02/13/24 02/14/24 02/15/24 23:59 23:59 23:59 Intake Total 1000 / 1000 1836.67 / 1836.67 1146.67 / 1146.67 Output Total 1765 / 1765 300 / 300 Balance 1000 / 1000 71.67 / 71.67 846.67 / 846.67 Medical Nutrition Assessment Dietitian: Malnutrition Criteria Met Start: 02/14/24 13:01 Freq: Status: Active Protocol: Document 02/14/24 13:01 SB (Rec: 02/14/24 13:02 SB [id number]) Nutrition Malnutrition Evidence of Malnutrition Exists Yes Malnutrition (severe): Chronic Evidenced By Suboptimal Energy Intake ( Moderate),Weight Loss (Severe) Clinical Problem Acute Disease or Injury Related Malnutrition Status Inactive Problem Chronic Disease or Condition Related Malnutrition Etiology severe related to decreased ability to consume sufficient energy and ETOH abuse Signs/Symptoms as evidenced by PO meeting <75 % of estimated nutrition requirements x 3 weeks, 7.6% unintentional weight loss x 3 months, and BMI 25.1. Status Active Problem Recommendation Dietitian Recommendations/Changes Resume consistent carb diet, as diet is advanced. As diet advances, will order 120ml chocolate glucerna TID with medpass for additional calories and protein. Reviewed and approved by Taty Altamirano, , RD, LD. Lab / Micro Data 02/14/24 06:01 02/14/24 06:01 Labs: Laboratory Results - last 24 hr 02/14/24 06:01: Vitamin B12 973 H 02/15/24 05:33: Phosphorus 3.7, Magnesium 2.0 Radiography Diagnostic Testing: Radiology Impression Carotid Duplex 02/13/24 23:06 Interpretation Summary Mild (<50%) stenosis right extracranial internal carotid. Mild (<50%) stenosis left extracranial internal carotid. Patent and antegrade vertebrals bilaterally. Ordering Physician: Yung Haro Referring Physician: Tabatha Irene Performed By: Jess Rob RVT Echocardiogram 02/13/24 23:06 Interpretation Summary Normal LV size. Left ventricular systolic function is normal. The left ventricular ejection fraction is 60 %. Stage 1 diastolic dysfunction. Contrast injection was performed. Ordering Physician: Yung Haro Performed By: Laxmi Shay RDCS Physical Exam Const alert and no apparent distress HEENT head/scalp atraumatic and moist oral mucous membranes Resp normal respiratory effort, no retractions, no use of accessory muscles and clear to auscultation bilaterally Cardio regular rate, regular rhythm, S1 normal heart sound and S2 normal heart sound GI normal to inspection, nondistended, normoactive bowel sounds, soft to palpation, non-tender and non-distended Neuro Sensorium / Orientation: awake and alert Assessment & Plan Assessment/Plan (1) Acute alcohol intoxication: QUALIFIERS: Complication of substance-induced condition: with unspecified complication Qualified Code(s): F10.929 - Alcohol use, unspecified with intoxication, unspecified (2) Syncope: QUALIFIERS: Syncope type: unspecified Qualified Code(s): R55 - Syncope and collapse (3) Multiple falls: (4) Concussion: QUALIFIERS: Encounter type: initial encounter Loss of consciousness presence/duration: unknown LOC status Qualified Code(s): S06.0XAA - Concussion with loss of consciousness status unknown, initial encounter PLAN: Plan Syncope Fell at home. Possibly from intoxication. Unclear if he had post-concussion syndrome. head CT showed no acute process. No acute intracranial abnormality. Echo shows an EF 60%. Stress negative. Carotid duplex negative. Echocardiogram negative. EEG pending. Home low yield from EEG as patient is never had a seizure before and had no evidence of seizure-like activity in the past. TSH, folate WNL. B12 not low. Advised pt, since he lives by himself, to discontinue alcohol completely. Debility PT OT evaluate and treat. Alcohol abuse: Alcohol level was 180 on admission. on phenobarbital taper Chronic conditions: Essential hypertension: lisinopril. DM-2: SSI. resume glimepiride and empagliflozin VTE prophylaxis: enoxaparin. Patient declined alf facility so patient be discharged home with home care.
[2024-02-15 09:28] VITALS: BP 140/85; PULSE 87; RESP 16; TEMP 36.4; O2SAT 97
[2024-02-15] MEDS: Magnesium Chloride 64 MG Delay Rel.Tablet 128 MG PO (09:32)
[2024-02-15] MEDS: Empagliflozin 25 MG Tablet PO (09:32)
[2024-02-15] MEDS: Enoxaparin 40 MG/0.4 ML Syringe SC (09:33)
[2024-02-15] MEDS: Lisinopril 10 MG Tablet PO (09:34)
--- NOTE | 2024-02-15 11:25 | CASEMGMT ---
Addendum entered by Suzy Mejia 02/15/24 15:23: Referral was sent to [facility]. Suzy BARKER Addendum entered by Suzy Mejia 02/15/24 14:26: SW offered patient a list of home health agencies and he declined stating [facility] is fine. Suzy BARKER Original Note: SW met with patient. SW re-introduced self to patient. SW explained therapy and physician recommendations of assisted facility. SW explained [place] would pay for this if they approved. SW provided patient with a list of the [facility]. SW explained that patient could go to one of those facilities and he would stay there for a week or so until he is stronger and then go home. At first patient seemed open to this, but then he said he wants to go home and family and neighbors will check on him. SW did ask if he would be willing to have home health. SW explained home health and what that entails. Patient asked if [facility] would pay for that. SW told patient JM will have to check as last time because he refused recommendation for SNF they would not cover home health. SW told patient JM can check with [facility]. SW told patient his Medicare also covers home health. Patient is open to home health through [facility] or Medicare. JM called patient's son Kyle. Introduced self and role at [facility]. JM explained therapy is recommending SNF for patient, but patient is declining. SW gave patient a list of the facilities that contract with [facility] and the [facility] would pay for it. Patient still declined. Patient is open to home health so this could be worked on, but therapy will only be out a couple of times a week and a nurse maybe once a week. Kyle thanked JM for the phone call and he knows patient is stubborn. JM spoke with Mic ONEAL at the [facility] and explained above. Mic said patient can get home health using his Medicare even though [facility]. Mic said if patient is insistent on having [facility] for [facility] JM would have to contact the nurse and send clinicals to her. The nurse's name is Leighann and her number is [phone]. Suzy BARKER
[2024-02-15] MEDS: Multivitamins,Therapeutic Tablet 1 TABLET PO (12:31)
--- NOTE | 2024-02-15 13:38 | DS.PCM_ITS ---
Providers Date of Admission: 02/13/24 Primary Care Physician: ADONIS BOATENG MD Reason For Visit: FALL X 2 WITH SUSPECTED SYNCOPE AND CONCUSSION Diagnosis Discharge Diagnosis (1) Acute alcohol intoxication: Status: Acute Code(s): F10.929 - Alcohol use, unspecified with intoxication, unspecified Qualifiers: Complication of substance-induced condition: with unspecified complication Qualified Code(s): F10.929 - Alcohol use, unspecified with intoxication, unspecified (2) Syncope: Status: Acute Code(s): R55 - Syncope and collapse Qualifiers: Syncope type: unspecified Qualified Code(s): R55 - Syncope and collapse (3) Multiple falls: Status: Acute Code(s): R29.6 - Repeated falls (4) Concussion: Status: Acute Code(s): S06.0XAA - Concussion with loss of consciousness status unknown, initial encounter Qualifiers: Encounter type: initial encounter Loss of consciousness presence/duration: unknown LOC status Qualified Code(s): S06.0XAA - Concussion with loss of consciousness status unknown, initial encounter Plan Syncope * Fell at home. Possibly from intoxication. Unclear if he had post-concussion syndrome. * head CT showed no acute process. No acute intracranial abnormality. Echo shows an EF 60%. * Stress negative. Carotid duplex negative. Echocardiogram negative. EEG pending. Home low yield from EEG as patient is never had a seizure before and had no evidence of seizure-like activity in the past. * TSH, folate WNL. B12 not low. * Advised pt, since he lives by himself, to discontinue alcohol completely. Debility * PT OT evaluate and treat. Alcohol abuse: * Alcohol level was 180 on admission. * on phenobarbital taper Chronic conditions: * Essential hypertension: lisinopril. * DM-2: SSI. resume glimepiride and empagliflozin VTE prophylaxis: enoxaparin. Patient declined jail facility so patient be discharged home with home care. Medications at Discharge Home Medications glimepiride 1 tab PO DAILY diabetes 11/15/23 multivitamin (Daily Multi-Vitamin tablet) 1 tab PO DAILY 11/15/23 albuterol sulfate 90 puff inhalation .1-2 puffs PRN asthma/copd 11/16/23 alogliptin 25 mg tablet 25 mg PO DAILY diabetes 11/16/23 empagliflozin 25 mg tablet 25 mg PO DAILY diabetes 11/16/23 lisinopril 10 mg tablet 10 mg PO DAILY blood pressure 11/16/23 magnesium oxide 420 mg tablet 420 mg PO DAILY supplement 11/16/23 Medical Records Data Medical Nutrition Assessment Dietitian: Malnutrition Criteria Met Start: 02/14/24 13:01 Freq: Status: Active Protocol: Document 02/14/24 13:01 SB (Rec: 02/14/24 13:02 SB [id number]) Nutrition Malnutrition Evidence of Malnutrition Exists Yes Malnutrition (severe): Chronic Evidenced By Suboptimal Energy Intake ( Moderate),Weight Loss (Severe) Clinical Problem Acute Disease or Injury Related Malnutrition Status Inactive Problem Chronic Disease or Condition Related Malnutrition Etiology severe related to decreased ability to consume sufficient energy and ETOH abuse Signs/Symptoms as evidenced by PO meeting <75 % of estimated nutrition requirements x 3 weeks, 7.6% unintentional weight loss x 3 months, and BMI 25.1. Status Active Problem Recommendation Dietitian Recommendations/Changes Resume consistent carb diet, as diet is advanced. As diet advances, will order 120ml chocolate glucerna TID with medpass for additional calories and protein. Reviewed and approved by Taty Altamirano, MS, RD, LD. Weight / BMI Weight Weight: 81.6 kg Body Mass Index (BMI) 25.0 ABG / Lab / Microbiology Data 02/14/24 06:01 02/14/24 06:01 Laboratory: Laboratory Results - last 24 hr 02/15/24 05:33: Phosphorus 3.7, Magnesium 2.0 Radiography Diagnostic Testing: Radiology Impression Carotid Duplex 02/13/24 23:06 Interpretation Summary Mild (<50%) stenosis right extracranial internal carotid. Mild (<50%) stenosis left extracranial internal carotid. Patent and antegrade vertebrals bilaterally. Ordering Physician: Yung Haro Referring Physician: Adonis Boateng Performed By: Jess Rob RVT D/C Instructions Discharge Diet: 1999 Calorie Control Diet Meaningful Use Info Meaningful Use Meaningful Use Diagnoses (Choose all that apply): None applicable Ischemic Stroke Statin Dosing Therapy Reference: STATIN DOSE THERAPY REFERENCE: * Patients > 75 years receive moderate or high dose statin therapy. * Patients 75 years or YOUNGER should receive HIGH intensity statin dose unless contraindicated. You will be required to document reason for non-treatment if statin daily dose does not meet guidelines. HIGH DOSE STATIN THERAPY DAILY Atorvastatin > than or = to 40 mg Rosuvastatin > than or = to 20 mg Amlodipine + Atorvastatin > than or = to 2.5/40 mg Ezetimibe + Simvastatin 10/80 mg Simvastatin 80mg Discharge Plan Admission Admit Date/Time: 02/13/24 21:22 Primary Reason for Your Visit: fall Attending Provider: Brendon Izquierdo Primary Care Provider: ADONIS BOATENG Consulting Providers: Yung Haro; Marcela Collins; Bethany Peres; Kelli Bazzi; Abram Ewing; Kendall Cho; Lucia Ayala; LIA WHITNEY; Shameka Warren; Tiffany Leblanc; Jeff Kay; Valeri Landers Instructions Additional Instructions / Restrictions: Falls, he went under an extensive workup. Your workup here was unremarkable with the exception of your alcohol level being elevated. I suspect that you fell due to being intoxicated and hit your head and likely had a concussion. That may be why you do not recall any of the events. I do recommend that you discontinue alcohol altogether as you live by herself and her at further risk of further falls by continuing to drink. Discharge Orders/Prescriptions Prescriptions: Continued glimepiride 1 tab PO DAILY Rx Instructions: 4 mg orally daily; multivitamin [Daily Multi-Vitamin] Tablet 1 tab PO DAILY empagliflozin 25 mg tablet 25 mg PO DAILY alogliptin 25 mg tablet 25 mg PO DAILY albuterol sulfate 90 puff inhalation .1-2 puffs PRN (Reason: asthma/copd) lisinopril 10 mg tablet 10 mg PO DAILY magnesium oxide 420 mg tablet 420 mg PO DAILY Referrals / Follow Up: ADONIS BOATENG MD [Primary Care Provider] - Within 2 Weeks Disposition Disposition (needs filled in before D/C Order can be placed): Home Health Service Charges/Coding Visit Charges Inpatient E&M: 43723 Disch Hosp >30min
--- NOTE | 2024-02-15 14:08 | PHA.DC.MR.R ---
Pharmacy [facility] [facility]con[facility] Service has performed discharge medication reconciliation for this patient. The patient's discharge medication list was reviewed for discrepancies and discrepancies were resolved. Medications at Discharge Home Medications glimepiride 1 tab PO DAILY diabetes 11/15/23 multivitamin (Daily Multi-Vitamin tablet) 1 tab PO DAILY 11/15/23 albuterol sulfate 90 puff inhalation .1-2 puffs PRN asthma/copd 11/16/23 alogliptin 25 mg tablet 25 mg PO DAILY diabetes 11/16/23 empagliflozin 25 mg tablet 25 mg PO DAILY diabetes 11/16/23 lisinopril 10 mg tablet 10 mg PO DAILY blood pressure 11/16/23 magnesium oxide 420 mg tablet 420 mg PO DAILY supplement 11/16/23
[2024-02-15 14:15] VITALS: BP 130/78; PULSE 91; RESP 17; TEMP 36.4; O2SAT 94
--- NOTE | 2024-02-15 14:30 | CASEMGMT ---
Patient was accepted by [facility] for PT, OT, and Social Work. will notify patient. Suzy BARKER
--- NOTE | 2024-02-15 14:33 | CASEMGMT ---
JM notified patient that [facility] is able to accept him. SW explained that therapy and social work will be out to see him. SW told patient [facility] will be out tomorrow and they will call regarding a time. Patient verbalized understanding and agreement. Patient asked SW to call his son and tell him as well as let him know patient is being discharged. SW called patient's son Kyle and left him a voice mail letting him know patient was set up with [facility] for PT,OT, and Social Work. JM also let Kyle know patient is being discharged and is ready whenever he is ready. SW left 's return number. Plan: d/c home with [facility] PT,OT, and Social Work. Suzy BARKER
--- NOTE | 2024-02-15 15:09 | CASEMGMT ---
JM assisted patient in calling [facility] per their request. Patient was informed that RJ Schaffer from [facility] will call him regarding a time tomorrow. JM told patient that [facility] information will be in his d/c instructions along with Karime's name. Patient thanked JM. Suzy Mejia DEWAXERJordyn BARKER
== END 2024-02-15 13:44 | disposition home health service (06) ==
LOC: ED 21:45 → PCU 22:20
PROVIDERS: Admitting Provider Internal Medicine; Emergency Provider Emergency Medicine; PCP Internal Medicine
DX: R55 Syncope and collapse (principal); I50.30 Unspecified diastolic (congestive) heart failure; E11.9 Type 2 diabetes mellitus without complications; R41.82 Altered mental status, unspecified; F10.129 Alcohol abuse with intoxication, unspecified; S06.0XAA Concussion with loss of consciousness status unknown, initial encounter; Z79.84 Long term (current) use of oral hypoglycemic drugs; I12.9 Hypertensive chronic kidney disease with stage 1 through stage 4 chronic kidney disease, or unspecified chronic kidney disease; R53.81 Other malaise; R53.1 Weakness; E43 Unspecified severe protein-calorie malnutrition; G93.40 Encephalopathy, unspecified; F17.210 Nicotine dependence, cigarettes, uncomplicated; Z79.899 Other long term (current) drug therapy; E87.1 Hypo-osmolality and hyponatremia; R29.6 Repeated falls; R42 Dizziness and giddiness; W19.XXXA Unspecified fall, initial encounter; Y90.6 Blood alcohol level of 120-199 mg/100 ml; F32.A Depression, unspecified; M19.90 Unspecified osteoarthritis, unspecified site; Y92.009 Unspecified place in unspecified non-institutional (private) residence as the place of occurrence of the external cause; Z68.25 Body mass index [BMI] 25.0-25.9, adult; I49.1 Atrial premature depolarization; I65.23 Occlusion and stenosis of bilateral carotid arteries
CPT/HCPCS: 36415; 70450; 71045; 72125; 78452; 80053; 80307; 81001; 82077; 82550; 82607; 82746; 83735; 84100; 84443; 84484; 85025; 93005; 93017; 93306; 93880; 95819; 96372; 96374; 96376; 97162; 97166; 97530; 97535; 97802; 99221; 99285; 99406; A9500; J7030; J7120; P9612; Q9957; A4216; C8929; G0378; J2405; J2785

== ENCOUNTER 2025-03-18 17:35 | Inpatient (IN) | payer OTHER, SELFPAY ==
[2025-03-18] VITALS (9 sets, daily range): BP systolic 92–129; BP diastolic 51–77; PULSE 68–108; RESP 13–20; TEMP 35.9–37.2; O2SAT 95–100; BMI 20.5; BMI 20.7
--- NOTE | 2025-03-18 18:02 | ED.VIS.FALL ---
HPI HPI - Fall History of Present Illness Chief Complaint: Fall Informant: patient and family Occured/Mechanism Occurred: Today Narrative: Unwitnessed fall Pain/Injury Pain Location: head and upper extremity (Right shoulder) Worsened by: Nothing Relieved by: Nothing Associated Symptoms Associated Symptoms: Positive for Weakness, Loss of function and Inability to ambulate Narrative Narrative: Patient presents after a fall that was noticed today. Son states that patient was last seen on Tuesday at 2 PM. Son states he went to check on him today since he was out of town over the weekend. Son noticed him laying on the floor. Son does not know how long he was laying on the floor. Patient is a poor informant. Son denies any fevers or chills. Son states patient has a history of diabetes and alcohol use. Tetanus Immunization: Unknown [facility] Medical History Tobacco abuse Debility Hyponatremia Pleural effusion on right Multiple rib fractures involving four or more ribs Alcohol abuse Kidney stones Smoker Hypertension Diabetes Home Medications ?Medication ?Instructions ?Recorded ?Last Taken ?Type glimepiride 1 tab PO DAILY diabetes 11/15/23 Unknown History multivitamin (Daily Multi-Vitamin 1 tab PO DAILY 11/15/23 Unknown History tablet) albuterol sulfate 90 puff inhalation .1-2 puffs PRN 11/16/23 Unknown History asthma/copd alogliptin 25 mg tablet 25 mg PO DAILY diabetes 11/16/23 Unknown History empagliflozin 25 mg tablet 25 mg PO DAILY diabetes 11/16/23 Unknown History lisinopril 10 mg tablet 10 mg PO DAILY blood pressure 11/16/23 Unknown History magnesium oxide 420 mg tablet 420 mg PO DAILY supplement 11/16/23 Unknown History Allergy/AdvReac Type Severity Reaction Status Date / Time No Known Allergies Allergy Verified 03/18/25 23:57 Social History Smoking Status: Current every day smoker tobacco type: cigarettes ROS ROS ED Constitutional Constitutional ED: Denies chills or fever(s) Eyes Eyes: Denies blurry vision or change in vision ENT ENT ED: Denies rhinorrhea or sore throat Cardiovascular Cardiovascular: Denies chest pain or palpitations Respiratory/Chest Respiratory/Chest: Denies cough or dyspnea Gastrointestinal Gastrointestinal: Denies nausea or vomiting Genitourinary Genitourinary ED: Denies dysuria or hematuria Musculoskeletal Musculoskeletal: Denies back pain or neck pain Integumentary Reports Abrasions; Denies abscess or rash Neurologic Neurologic: Denies headache(s) or weakness Allergic/Immunologic Allergic/Immunologic ED: Denies mouth swelling or urticaria EXAM Physical Exam Const Vital Signs: 03/18/25 17:37 03/18/25 17:41 03/18/25 17:48 Temperature 98.9 F 96.6 F L Temperature Source Oral Temporal Pulse Rate 108 H 106 H Respiratory Rate 18 18 Respiratory Effort Normal Respiratory Depth Normal Respiratory Pattern Normal Blood Pressure 97/60 98/76 Blood Pressure Mean 72 83 Pulse Ox 98 95 Oxygen Delivery Method Room Air Room Air Room Air 03/18/25 18:35 03/18/25 18:41 03/18/25 19:00 Temperature 97.8 F 97.8 F Temperature Source Temporal Temporal Pulse Rate 103 H 98 100 Respiratory Rate 18 16 16 Respiratory Effort Respiratory Depth Respiratory Pattern Blood Pressure 92/51 L 94/53 L 105/51 L Blood Pressure Mean 64 66 69 Pulse Ox 100 100 100 Oxygen Delivery Method Room Air Room Air Room Air 03/18/25 20:00 03/18/25 21:00 03/18/25 21:00 Temperature 97.6 F L 97.7 F L Temperature Source Axillary Pulse Rate 101 H 100 100 Respiratory Rate 14 20 H 20 H Respiratory Effort Respiratory Depth Respiratory Pattern Blood Pressure 104/51 L 108/77 108/77 Blood Pressure Mean 68 87 87 Pulse Ox 100 96 96 Oxygen Delivery Method Room Air Constitutional Narrative: BMI is 20.7 General Appearance ED: NAD HEENT Reports normocephalic and TM's normal bilaterally HEENT Narrative: There are abrasions over the forehead and bridge of the nose. There is no active bleeding noted. There is no bony crepitance or step-off. [place] is dry. Eyes PERRL and EOMs intact bilaterally General Eye ED: Negative for scleral icterus Neck supple Resp normal respiratory effort Auscultation: diminished lung sounds diffuse Cardio regular rhythm Rate: tachycardic GI non-tender and non-distended Palpation: soft Extremity Extremity Narrative: There is tenderness over the right shoulder. There is no deformity noted. There is some edema noted. Range of motion was limited in all motions of the right shoulder secondary to pain. Radial pulses are equal bilaterally. Sensation is intact to light touch bilateral in the upper and lower extremities. Neuro CN's II-XII intact bilaterally, moves all extremities, no focal motor deficits and no sensory deficits noted Sensorium / Orientation: alert, oriented to person, oriented to place, orientation impaired and confused Motor Exam: general weakness MDM MDM MDM Narrative Medical decision making narrative: Differential diagnosis includes but is not limited to dehydration, electrolyte abnormality, rhabdomyolysis, urinary tract infection, pneumonia, bronchitis, intracranial bleeding, cervical fracture, cervical strain, cardiac dysrhythmia, cardiac ischemia, right shoulder fracture, dislocation, and general weakness. CT scan of the brain will be obtained to assess for intracranial bleeding and stroke. CT scan of the cervical spine will be obtained to assess for cervical fracture. EKG will be obtained to assess for cardiac dysrhythmia and cardiac ischemia. Chest x-ray will be obtained to assess for pneumonia and bronchitis. Right shoulder x-rays will be obtained to assess for shoulder fracture or dislocation. CBC will be obtained to assess for leukocytosis and anemia. Comprehensive metabolic profile will be obtained to assess for hepatic function, renal function, and electrolyte abnormality. Lipase will be obtained to assess for pancreatitis. Serum lactate will be obtained to assess for sepsis. Total CPK will be obtained to assess for rhabdomyolysis. Urinalysis will be obtained to assess for urinary tract infection and hematuria. PT with INR and PTT will be obtained to assess for coagulopathy. History & Record Review Additional record(s) reviewed:: Prior ED visit and Prior labs Lab Data Attestation: I reviewed the patient's lab results. Lab results narrative: CBC was reviewed. There is a mild leukocytosis of 12.1. There is a slight anemia with a hemoglobin of 12.4 and hematocrit 37.8. Platelets were normal at 296. Comprehensive metabolic profile was reviewed. Glucose was slightly elevated at 167. BUN was slightly elevated at 33. The remainder was within normal limits. Serum lactate was reviewed and was elevated at 3.8. Lipase was reviewed and was normal at 24. Urinalysis was reviewed. Leukocyte esterase was 500. There are greater than 100 white blood cells. There is 1+ bacteria. Total CPK was reviewed and was normal at 158. Labs: Laboratory Results - last 24 hr 03/18/25 03/18/25 18:43 21:15 WBC 12.1 H RBC 3.81 L Hgb 12.4 L Hct 37.8 L MCV 99.2 H MCH 32.5 H MCHC 32.8 RDW Std Deviation 50.0 H RDW Coeff of Ana 13.9 Plt Count 296 MPV 10.0 Immature Gran % (Auto) 0.500 Neut % (Auto) 77.4 H Lymph % (Auto) 8.6 L [place] % (Auto) 13.0 H Eos % (Auto) 0.2 Baso % (Auto) 0.3 Absolute Neuts (auto) 9.4 H Absolute Lymphs (auto) 1.04 Nucleated RBC % 0 Differential Comment SCANNED Platelet Estimate ADEQUATE PT 13.7 INR 1.0 APTT 25.4 Sodium 136 Potassium 4.4 Chloride 101 Carbon Dioxide 20.2 L Anion Gap 15 BUN 33 H Creatinine 0.86 Estim Creat Clear Calc 63.53 Est GFR (MDRD) Non-Af 87 BUN/Creatinine Ratio 37.7 H Glucose 167 H Lactic Acid 3.8 H* Calcium 8.7 Total Bilirubin 0.46 AST 29 ALT 26 Alkaline Phosphatase 71 Total Creatine Kinase 158 Total Protein 6.7 Albumin 3.5 Globulin 3.1 Albumin/Globulin Ratio 1.1 Lipase 24 Urine Color Yellow Urine Clarity Cloudy Urine pH 5.0 Ur Specific [place] 1.015 Urine Protein 30 H Urine Glucose (UA) 1000 H Urine Ketones 5 H Urine Occult Blood 250 H Urine Nitrite Negative Urine Bilirubin Negative Urine Urobilinogen Normal Ur Leukocyte Esterase 500 H Urine RBC 0-5 SEEN Urine WBC >100 SEEN Ur Squamous Epith Cells 0-5 SEEN Ur Renal Epithelial Cell 0-5 SEEN Urine Bacteria 1+ Urine Mucus 0 SEEN Radiography Diagnostic Testing: Clinical Impression(s) from Imaging Studies Shoulder X-Ray 03/18/25 18:20 IMPRESSION: Osseous findings as above. Reading Location: [address] 03/18/25 19:03 IMPRESSION: No evidence of acute intracranial pathology. Sinus disease as noted. Reading Location: [facility] Cervical Spine CT 03/18/25 19:03 IMPRESSION: No acute osseous abnormality. Reading Location: [address] Chest X-Ray 03/18/25 19:10 IMPRESSION: NO ACUTE FINDINGS. Reading Location: [address] scan of the brain was obtained. There is no acute intracranial abnormality. This was interpreted by the radiologist and was also independently reviewed by myself. CT scan of the cervical spine was obtained. There is no acute fracture or spondylolisthesis. There is no soft tissue swelling. This was interpreted by the radiologist and was also independently reviewed by myself. PA and lateral chest x-ray was obtained. There are 2 views. On my independent interpretation, lung fong are clear. There is normal cardiac silhouette. Bony thorax is normal. There is no acute process noted. Radiologist also interpreted the x-ray and agrees. X-rays of the right shoulder were obtained. There are 4 views. On my independent interpretation, there is a comminuted fracture of the right proximal humerus. There is no dislocation noted. There is minimal displacement. Radiologist also interpreted the x-rays and agrees. EKG Initial EKG: Attestation: I personally reviewed and interpreted this EKG as follows: Interpretation: Sinus Tachycardia (107 with occasional PACs) and Non-Specific ST Changes Comments: EKG was obtained. On my independent interpretation, shows sinus tachycardia with occasional PACs with a rate of 107. [place] interval is normal at 160 ms. QRS interval was normal at 86 ms. QTc interval was slightly prolonged at 485 ms. [place] was normal. There are no acute ST or T wave changes noted. Prior EKG tracings: available for review Prior: Unchanged (02/08/2024) Management Discussion w/another healthcare provider: Hospitalist Treatment and Re-Evaluation Narrative: Patient was given IV fluids. Patient was started on Zosyn and vancomycin. Son was advised of her findings. Patient and son were advised of the need for admission. Case was discussed with the hospitalist. He will admit the patient to his service. Patient and son understand and are agreeable with the plan. All questions were answered. Discharge Plan Dx/Rx/DC Orders Clinical Impression: Frequent falls, Alcohol abuse, Closed right humeral fracture, Generalized weakness, Ambulatory dysfunction, Confusion, Dehydration, Urinary tract infection, Lactic acidosis Disposition Disposition: Acute Care Hospital [facility] Discharge Date/Time: 03/18/25 23:08
--- NOTE | 2025-03-18 18:19 | EKG12_ITS ---
Test Reason : DYSRHYTHMIA Blood Pressure : */* mmHG Vent. Rate : 107 BPM Atrial Rate : 107 BPM P-R Int : 162 ms QRS Dur : 86 ms QT Int : 364 ms P-R-T Axes : 84 54 68 degrees QTcB Int : 485 ms Sinus tachycardia with Premature supraventricular complexes QTcB >= 480 msec Abnormal ECG Confirmed by MICHELLE ORTEZ, MATIAS ([id number]), scientific editor VIRGILIO DING ([id number]) on 03/20/2025 8:24:24 AM Referred By: Confirmed By: MATIAS MARTINEZ MD
--- NOTE | 2025-03-18 18:20 | RAD_ITS ---
PROCEDURE: SHOULDER MIN 2 VIEWS 03/18/2025 REASON FOR EXAM: INJURY/PAIN TECHNIQUE: Procedure Code: RADSH Modality: DX Procedure: SHOULDER MIN 2 VIEWS Laterality: FINDINGS: Comminuted fracture of the humeral head/neck. Fomaxcoh-gn-dijhsi acromioclavicular and glenohumeral degenerative changes. RAD/Shoulder min 2 Views IMPRESSION: Osseous findings as above. Reading Location: [id number]
[2025-03-18] MEDS: 0.9% Normal Saline (1000mL) 1,000 ML 1000 ML IV ×2 (18:51→21:35)
--- NOTE | 2025-03-18 19:03 | CT_ITS ---
PROCEDURE: CT BRAIN/HEAD WITHOUT CONTRAST 03/18/2025 REASON FOR EXAM: FALL TECHNIQUE: Procedure Code: CTBR Modality: CT Procedure: BRAIN/HEAD WITHOUT CONTRAST Coronal and Sagittal reconstruction series were provided. One or more dose reduction techniques were used (e.g., Automated exposure control, adjustment of the mA and/or kV according to patient size, use of iterative reconstruction technique. RADIATION DOSE SUMMARY: CTDlvol: 44.99 mGy DLP: 779.24 mGycm COMPARISON: None available. FINDINGS: No acute intracranial hemorrhage, extra-axial collection, mass effect or evidence of acute infarct. Thin crescentic isodensity along the bilateral cerebral convexities appears artifactual due to volume averaging. Mild generalized brain parenchymal volume loss and chronic microangiopathic changes. Intact skull base and calvarium. Absent [place] ocular lenses. No mastoid effusions. Atherosclerotic calcification along the carotid siphons. Mucosal thickening and frothy fluid secretions in the left maxillary and bilateral sphenoid sinuses. CT/Brain/Head without Contrast IMPRESSION: No evidence of acute intracranial pathology. Sinus disease as noted. Reading Location: [id number]
--- NOTE | 2025-03-18 19:03 | CT_ITS ---
PROCEDURE: SPINE CERVICAL WITHOUT CONTRAS 03/18/2025 REASON FOR EXAM: INJURY/PAIN TECHNIQUE: Procedure Code: CTSPC Modality: CT Procedure: SPINE CERVICAL WITHOUT CONTRAS Coronal and Sagittal reconstruction series were provided. One or more dose reduction techniques were used (e.g., Automated exposure control, adjustment of the mA and/or kV according to patient size, use of iterative reconstruction technique. FINDINGS: No evidence of acute fracture or dislocation. Moderate degenerative changes of visualized spine. Vertebral body heights are maintained. Normal alignment. CT/Spine Cervical without Contras IMPRESSION: No acute osseous abnormality. Reading Location: [id number]
--- NOTE | 2025-03-18 19:10 | RAD_ITS ---
PROCEDURE: CHEST PA AND LATERAL 03/18/2025 REASON FOR EXAM: WEAKNESS TECHNIQUE: Procedure Code: RADCXR Modality: DX Procedure: CHEST PA AND LATERAL FINDINGS: The heart is normal in size. The lungs are clear. No acute osseous abnormalities. Chronic rib deformities. RAD/Chest PA and Lateral IMPRESSION: NO ACUTE FINDINGS. Reading Location: [id number]
[2025-03-18 19:13] LABS: Hematocrit 37.8 % (40-54); Hemoglobin 12.4 g/dL (13.0-16.5); Immature Granulocytes Count 0.060 X10^3/uL (0.0-0.0); Mean Corp Hgb Conc 32.8 g/dL (32-36); Mean Corpuscular Volume 99.2 fL (80-94); NRBC Flagged by Analyzer 0 % (0-5); POSITIVE COUNT YES; POSITIVE DIFFERENTIAL YES; RBC Distribution Width CV 13.9 % (11.6-14.6); RBC Distribution Width SD 50.0 fl (35.1-43.9); Red Blood Count 3.81 M/mm3 (4.6-6.2); White Blood Count 12.1 K/mm3 (4.4-11.0)
[2025-03-18 19:25] LABS: Differential Indicated SCAN CRITERIA MET; Prothrombin Time (Protime)PT. 13.7 SECONDS (11.7-14.9)
[2025-03-18 19:26] LABS: Partial Thromboplast Time 25.4 Seconds (24.1-36.2)
[2025-03-18 19:36] LABS: AST(SGOT) 29 U/L (<=37); Alanine Aminotransfer ALT/SGPT 26 U/L (<=46); Albumin, Serum 3.5 g/dL (3.4-4.8); Alkaline Phosphatase 71 U/L (40-129); Anion Gap 15 (5-15); BUN 33 mg/dL (4-19); BUN/Creat Ratio 37.7 RATIO (10-20); Calcium,Total 8.7 mg/dL (7.6-11.0); Carbon Dioxide 20.2 mmol/L (21.0-32.0); Chloride 101 mmol/L (98-108); Estimated Creatinine Clearance 63.53 ml/min (50-250); Globulin 3.1 g/dL (2.2-4.2); Glucose 167 mg/dL (70-99); Lipase 24 U/L (13-75); Potassium 4.4 mmol/L (3.3-5.1)
[2025-03-18 20:08] LABS: Platelet Count 296 K/mm3 (150-450)
[2025-03-18 20:09] LABS: Differential Comment SCANNED; Mean Platelet Vol. 10.0 fl (6.2-12.0)
[2025-03-18 20:32] LABS: CPK Total, Creatine Kinase 158 U/L (24-195)
[2025-03-18 21:22] LABS: Mucous, Urine 0 SEEN /hpf (<or=2+)
[2025-03-18 21:24] LABS: Color, Urine Yellow (Yellow); Glucose, Dipstick 1000 mg/dl (Normal); Ketone-Dipstick 5 mg/dl (Negative); Leukocyte Esterase-Dipstick 500 /ul (Negative); Nitrite-Dipstick Negative (Negative); Occult Blood-Urine 250 /ul (Negative); Protein-Dipstick 30 mg/dl (Negative); Specific Gravity, Urine 1.015 (1.002-1.030); Urine Bilirubin Dipstick Negative (Negative)
[2025-03-18] MEDS: Piperacil/Tazobactam 4.5 GM in 0.9% Normal Saline (100mL MB+) 100 ML IV (21:34)
--- NOTE | 2025-03-18 21:43 | HP.PCM_ITS ---
[facility] General Date of Admission: 03/18/25 Date of Service: 03/18/25 Chief Complaint: Follow-up fracture, debility and failure to thrive HPI Narrative OMKAR WOODRUFF, is a 80 M who presents to the emergency room after a fall at home with fracture to right humerus. Patient has significant past medical history of debility, tobacco abuse, alcohol abuse, hypertension and diabetes who lives alone in his frequented by family member. Patient was found down at home and was on the ground for an unknown period of time. Patient is a poor historian and his son is present to provide further history. Son state patient drinks significant amounts of alcohol routinely but is unaware that he has gone through alcohol withdrawal in the past, patient smokes and has poor nutritional status. CT of the head and neck is negative for acute findings however x-ray of the humerus shows a fracture of the humerus neck. A sling and swath has been applied in the ER. Laboratory studies reveal white blood cell count 12.1, hemoglobin 12.4, hematocrit 37.8, platelets 296, sodium 136, potassium 4.4, chloride 101, bicarb 20.2, BUN 33, creatinine 0.86, glucose 167, lactate elevated 3.8, CK 158, T. bili 0.46, AST 29, ALT 26. Per son patient is DNR Comfort Care arrest and that he states his father did not want to be resuscitated. Patient will be admitted to general medical floor physical therapy consult will be obtained and will hydrate patient overnight and reevaluate. Continue sling and swath and can follow-up with orthopedic surgeon as outpatient. It is highly likely this patient will need long-term care placement due to his falling risk and poor generalized health status. [facility], [facility] Medical History (Updated 03/18/25 @ 21:[address] Sedrick Garg MD) Tobacco abuse Debility Hyponatremia Pleural effusion on right Multiple rib fractures involving four or more ribs Alcohol abuse Kidney stones Smoker Hypertension Diabetes Home Medications ?Medication ?Instructions ?Recorded ?Last Taken ?Type glimepiride 1 tab PO DAILY diabetes 11/04 06/29 Unknown History multivitamin (Daily Multi-Vitamin 1 tab PO DAILY 11/14 Unknown History tablet) albuterol sulfate 90 puff inhalation .1-2 puff s PRN 11/16/23 Unknown History asthma/copd alogliptin 25 mg tablet 25 mg PO DAILY diabetes 11/04 07/30 Unknown History empagliflozin 25 mg tablet 25 mg PO DAILY diabetes 05/29 Unknown History lisinopril 10 mg tablet 10 mg PO DAILY blood pressur e 11/16/23 Unknown History magnesium oxide 420 mg tablet 420 mg PO DAILY suppleme nt 11/16/23 Unknown History Allergy/AdvReac Type Severity Reaction Status Date / Time No Known Allergies Allergy Verified 11/15/23 16:58 Social History Smoking Status: Current every day smoker tobacco type: cigarettes ROS Constitutional Constitutional: Denies chills or fever(s) Eyes Eyes: Denies blurry vision ENT HEENT: Denies abnormal hearing Cardiovascular Cardiovascular: Denies chest pain Respiratory/Chest Respiratory/Chest: Denies shortness of breath at rest Gastrointestinal Gastrointestinal: Denies abdominal pain Musculoskeletal Musculoskeletal: Reports extremity pain and joint pain Integumentary Integumentary: Denies dry skin Psychiatric Psychiatric: Denies anxiety Vital Signs Vital Signs Vital Signs: 03/18/25 17:37 03/18/25 17:41 03/18/25 17:48 Temperature 98.9 F 96.6 F L Temperature Source Oral Temporal Pulse Rate 108 H 106 H Respiratory Rate 18 18 Respiratory Effort Normal Respiratory Depth Normal Respiratory Pattern Normal Blood Pressure 97/60 98/76 Blood Pressure Mean 72 83 Pulse Ox 98 95 Oxygen Delivery Method Room Air Room Air Room Air 03/18/25 18:35 03/18/25 18:41 03/18/25 19:00 Temperature 97.8 F 97.8 F Temperature Source Temporal Temporal Pulse Rate 103 H 98 100 Respiratory Rate 18 16 16 Respiratory Effort Respiratory Depth Respiratory Pattern Blood Pressure 92/51 L 94/53 L 105/51 L Blood Pressure Mean 64 66 69 Pulse Ox 100 100 100 Oxygen Delivery Method Room Air Room Air Room Air 03/18/25 20:00 03/18/25 21:00 03/18/25 21:00 Temperature 97.6 F L 97.7 F L Temperature Source Axillary Pulse Rate 101 H 100 100 Respiratory Rate 14 20 H 20 H Respiratory Effort Respiratory Depth Respiratory Pattern Blood Pressure 104/51 L 108/77 108/77 Blood Pressure Mean 68 87 87 Pulse Ox 100 96 96 Oxygen Delivery Method Room Air Weight Weight: 147 lb Body Mass Index (BMI) 20.5 Physical Exam Const Orientation / Consciousness: confused and lethargic HEENT normocephalic HEENT Narrative: Multiple bruises on forehead at various stages of healing Eyes PERRL Neck no lymphadenopathy Lymph Lymphatic: no lymphadenopathy noted Resp normal respiratory effort, normal air movement and clear to auscultation bilaterally Cardio regular rate, regular rhythm, S1 normal heart sound and S2 normal heart sound GI normal to inspection, nondistended, normoactive bowel sounds Extremity normal capillary refill Skin General Skin Exam: no breakdown Neuro no focal motor deficits and no sensory deficits noted Psych affect normal Results Lab / Micro Data 03/18/25 18:43 03/18/25 18:43 Labs: Laboratory Results - last 24 hr 03/18/25 18:43: WBC 12.1 H, RBC 3.81 L, Hgb 12.4 L, Hct 37.8 L, MCV 99.2 H, MCH 32.5 H, MCHC 32.8, RDW Std Deviation 50.0 H, RDW Coeff of Ana 13.9, Plt Count 296, MPV 10.0, Immature Gran % (Auto) 0.500, Neut % (Auto) 77.4 H, Lymph % (Auto) 8.6 L, [place] % (Auto) 13.0 H, Eos % (Auto) 0.2, Baso % (Auto) 0.3, A bsolute Neuts (auto) 9.4 H, Absolute Lymphs (auto) 1.04, Nucleated RBC % 0, Differential Comment SCANNED, Platelet Estimate ADEQUATE, PT 13.7, INR 1.0, APTT 25.4, Sodium 136, Potassium 4.4, Chloride 101, Carbon Dioxide 20.2 L, Anion Gap 15, BUN 33 H, Creatinine 0.86, Estim Creat Clear Calc 63.53, Est GFR (MDRD) Non- Af 87, BUN/Creatinine Ratio 37.7 H, Glucose 167 H, Lactic Acid 3.8 H*, Calcium 8.7, Total Bilirubin 0.46, AST 29, ALT 26, Alkaline Phosphatase 71, Total Creatine Kinase 158, Total Protein 6.7, Albumin 3.5, Globulin 3.1, Albumin/Globulin Ratio 1.1, Lipase 24 03/18/25 21:15: Urine Color Yellow, Urine Clarity Cloudy, Urine pH 5.0, Ur Specific [place] 1.015, Urine Protein 30 H, Urine Glucose (UA) 1000 H, Urine Ketones 5 H, Urine Occult Blood 250 H, Urine Nitrite Negative, Urine Bilirubin Negative, Urine Urobilinogen Normal, Ur Leukocyte Esterase 500 H Imaging Radiology Impression Shoulder X-Ray 03/18/25 18:20 IMPRESSION: Osseous findings as above. Reading Location: [address] 03/18/25 19:03 IMPRESSION: No evidence of acute intracranial pathology. Sinus disease as noted. Reading Location: [id number] Cervical Spine CT 03/18/25 19:03 IMPRESSION: No acute osseous abnormality. Reading Location: [address] Chest X-Ray 03/18/25 19:10 IMPRESSION: NO ACUTE FINDINGS. Reading Location: [address] Assessment & Plan Assessment/Plan (1) Ambulatory dysfunction: (2) Generalized weakness: (3) Closed right humeral fracture: (4) Frequent falls: (5) Alcohol abuse: (6) Tobacco abuse: PLAN: Plan 1 generalized weakness with frequent falls and recent fracture right humerus?admit patient to general medical floor, maintain arm in sling and swath, will add Tylenol for pain control at this point as needed when he is more alert and asking for it. Consult case management for discharge planning as patient is likely to need long-term placement due to frequent falls and poor self-care at home. Will order physical therapy evaluation for generalized strengthening. 2. History of alcohol abuse?patient continues to drink no history of withdrawal per son however, will add thiamine and folic acid to his orders and monitor for symptoms of withdrawal 3. Tobacco abuse?cessation will be encouraged and will offer nicotine patch when patient requested 4. DVT prophylaxis?low molecular weight heparin 5. CODE STATUS?DNR Comfort Care arrest through discussion with his son 6. Elevated lactate?patient has also mild leukocytosis but no fever present and no obvious source for infection will hydrate patient with IV normal saline overnight at a rate of 125 cc/h recheck BMP, CBC and lactate. Charges/Coding Visit Charges Inpatient E&M: 71970 Init Hosp L2
[2025-03-18 22:13] LABS: Red Blood Cells-Urine 0-5 SEEN /hpf (0-5); Squamous Epithelial Cells - UA 0-5 SEEN /hpf (0-5)
[2025-03-18] MEDS: Vancomycin HCl 1,750 MG in 0.9% Normal Saline (500mL Bag) 500 ML 250 MG IV (22:16)
[2025-03-18 23:03] LABS: Reflex Lactate? Y
[2025-03-19] VITALS (9 sets, daily range): BP systolic 90–128; BP diastolic 50–78; PULSE 88–117; RESP 16–20; TEMP 36.4–36.9; O2SAT 93–100
[2025-03-19] MEDS: 0.9% Normal Saline (1000mL) 1,000 ML 125 ML IV ×2 (00:47→09:17)
[2025-03-19 05:01] LABS: Hematocrit 32.7 % (40-54); Hemoglobin 10.8 g/dL (13.0-16.5); Immature Granulocytes Count 0.020 X10^3/uL (0.0-0.0); Mean Corp Hgb Conc 33.0 g/dL (32-36); Mean Corpuscular Volume 98.2 fL (80-94); Mean Platelet Vol. 9.8 fl (6.2-12.0); NRBC Flagged by Analyzer 0 % (0-5); Platelet Count 228 K/mm3 (150-450); RBC Distribution Width CV 13.7 % (11.6-14.6); RBC Distribution Width SD 49.4 fl (35.1-43.9); Red Blood Count 3.33 M/mm3 (4.6-6.2); White Blood Count 8.9 K/mm3 (4.4-11.0)
[2025-03-19 05:24] LABS: Anion Gap 8 (5-15); BUN 29 mg/dL (4-19); BUN/Creat Ratio 41.4 RATIO (10-20); Calcium,Total 7.5 mg/dL (7.6-11.0); Carbon Dioxide 21.6 mmol/L (21.0-32.0); Chloride 110 mmol/L (98-108); Estimated Creatinine Clearance 67.09 ml/min (50-250); Glucose 77 mg/dL (70-99); Potassium 3.9 mmol/L (3.3-5.1)
[2025-03-19] MEDS: Thiamine Hydrochloride 200 MG/2 ML Vial 100 MG IM (08:17)
[2025-03-19] MEDS: LINAGLIPTIN 5 MG TABLET PO (08:22)
[2025-03-19] MEDS: Magnesium Chloride 64 MG Delay Rel.Tablet 128 MG PO (08:22)
--- NOTE | 2025-03-19 11:00 | PCM.PN.HOSP ---
Subjective Subjective Resting, little drowsy. No issues overnight Objective Data Objective Data Vital Signs: Vital Signs Temp Pulse Resp BP Pulse Ox O2 Del Method O2 Flow Rate 97.6 F L 91 20 H 108/62 100 Nasal Cannula 2 03/19/25 08:13 03/19/25 08:13 03/19/25 08:13 03/19/25 08:13 03/19/25 08:15 03/19/25 08:15 03/19/25 08:15 Oxygen Flow Rate (L/min) 2 Oxygen Delivery Method Nasal Cannula Weight: 144 lb 6.444 oz Body Mass Index (BMI) 20.7 Intake & Output: Intake and Output for Last 24 Hours 03/18/25 03/19/25 03/20/25 03:59 03:59 03:59 Intake Total 2735 / 2735 1050 / 1050 Output Total 600 / 600 Balance 2735 / 2735 450 / 450 Lab / Micro Data 03/19/25 04:52 03/19/25 04:52 Labs: Laboratory Results - last 24 hr 03/18/25 18:43: WBC 12.1 H, RBC 3.81 L, Hgb 12.4 L, Hct 37.8 L, MCV 99.2 H, MCH 32.5 H, MCHC 32.8, RDW Std Deviation 50.0 H, RDW Coeff of Ana 13.9, Plt Count 296, MPV 10.0, Immature Gran % (Auto) 0.500, Neut % (Auto) 77.4 H, Lymph % (Auto) 8.6 L, [place] % (Auto) 13.0 H, Eos % (Auto) 0.2, Baso % (Auto) 0.3, Absolute Neuts (auto) 9.4 H, Absolute Lymphs (auto) 1.04, Nucleated RBC % 0, Differential Comment SCANNED, Platelet Estimate ADEQUATE, PT 13.7, INR 1.0, APTT 25.4, Sodium 136, Potassium 4.4, Chloride 101, Carbon Dioxide 20.2 L, Anion Gap 15, BUN 33 H, Creatinine 0.86, Estim Creat Clear Calc 63.53, Est GFR (MDRD) Non-Af 87, BUN/Creatinine Ratio 37.7 H, Glucose 167 H, Lactic Acid 3.8 H*, Calcium 8.7, Total Bilirubin 0.46, AST 29, ALT 26, Alkaline Phosphatase 71, Total Creatine Kinase 158, Total Protein 6.7, Albumin 3.5, Globulin 3.1, Albumin/Globulin Ratio 1.1, Lipase 24 03/18/25 21:15: Urine Color Yellow, Urine Clarity Cloudy, Urine pH 5.0, Ur Specific [place] 1.015, Urine Protein 30 H, Urine Glucose (UA) 1000 H, Urine Ketones 5 H, Urine Occult Blood 250 H, Urine Nitrite Negative, Urine Bilirubin Negative, Urine Urobilinogen Normal, Ur Leukocyte Esterase 500 H, Urine RBC 0-5 SEEN, Urine WBC >100 SEEN, Ur Squamous Epith Cells 0-5 SEEN, Ur Renal Epithelial Cell 0-5 SEEN, Urine Bacteria 1+, Urine Mucus 0 SEEN 03/18/25 23:49: Lactic Acid 2.0 03/19/25 04:52: WBC 8.9, RBC 3.33 L, Hgb 10.8 L, Hct 32.7 L, MCV 98.2 H, MCH 32.4 H, MCHC 33.0, RDW Std Deviation 49.4 H, RDW Coeff of Ana 13.7, Plt Count 228, MPV 9.8, Immature Gran % (Auto) 0.200, Neut % (Auto) 69.3, Lymph % (Auto) 13.2 L, [place] % (Auto) 14.8 H, Eos % (Auto) 1.9, Baso % (Auto) 0.6, Absolute Neuts (auto) 6.2, Absolute Lymphs (auto) 1.18, Nucleated RBC % 0, Sodium 140, Potassium 3.9, Chloride 110 H, Carbon Dioxide 21.6, Anion Gap 8, BUN 29 H, Creatinine 0.70, Estim Creat Clear Calc 67.09, Est GFR (MDRD) Non-Af 93, BUN/Creatinine Ratio 41.4 H, Glucose 77, Calcium 7.5 L Radiography Diagnostic Testing: Radiology Impression Shoulder X-Ray 03/18/25 18:20 IMPRESSION: Osseous findings as above. Reading Location: [address] 03/18/25 19:03 IMPRESSION: No evidence of acute intracranial pathology. Sinus disease as noted. Reading Location: [facility] Cervical Spine CT 03/18/25 19:03 IMPRESSION: No acute osseous abnormality. Reading Location: [address] Chest X-Ray 03/18/25 19:10 IMPRESSION: NO ACUTE FINDINGS. Reading Location: [address] Physical Exam Narrative General: Drowsy, Oriented x1, Cooperative, No apparent distress HEENT: Atraumatic, PERRLA, EOMI, Normocephalic Oral: Moist Mucosa Neck: Supple, No JVD Lungs: Diminished, Normal air movement, No rhonchi, No wheeze, No rales Cardiovascular: Regular rate, Regular Rhythm, Normal S1, Normal S2, No murmurs Abdomen: Soft, Non Tender, Non-Distended, No Hepato-splenomegaly Extremities: No edema, Capillary Refill Less than 3 Seconds Skin: No rashes, No breakdown Musculoskeletal: No Tenderness to Palpation of Joints or Extremities Neurological: No focal neurological deficits, moves all extremities Psych/Mental Status: Flat Assessment & Plan Assessment/Plan (1) Generalized weakness: (2) Closed right humeral fracture: (3) Alcohol abuse: PLAN: Plan 1. Generalized weakness and frequent falls with a recent fracture to his right humerus and a history of alcohol abuse/probable UTI ? He was given antibiotic last night for leukocytosis and a UA consistent with a UTI unfortunately urine cultures were not obtained at that time ? Continue with Rocephin ? PT/OT ? Given his alcohol use history, will continue with folic acid supplementation but will also add high-dose thiamine 2. Essential HTN ? Blood pressure stable, continue with his lisinopril ? Monitor make adjustments as necessary 3. DM2 ? Hold his home medications ? Sliding scale insulin ? Accu-Cheks DVT: Lovenox Charges/Coding Visit Charges Inpatient E&M: 48951 Subs Hosp L2
--- NOTE | 2025-03-19 11:16 | CASEMGMT ---
RJ SHEETS Assessment: Face to Face with pt for initial transition planning/care coordination assessment. RJ SHEETS introduced self and role at [facility], pt voices understanding and consents to assessment. Pt is A&O x4 and answers all questions appropriately at this time. Pt lying in bed in no distress. Care providers, pharmacy, and demographics verified/updated. Strata: 2 Admitting Dx: Frequent falls debility R humerus fracture PCP: [facility] Specialists: Denies Preferred Pharmacy: [facility] [place]: [place] Pres[place] Benefit: yes LNOK: Son, Kyle Living Arrangements: Pt lives alone in a 1 level home with 1 step to enter. ADLs: Pt states granddaughter comes over every afternoon to assist him. States he has a niece and son that also come to help him. Transportation: Pt states family provide transportation. DME: Walker, w/c, shower chair. HHC/SNF: Denies Hx of. Pt states no concerns with going home at time of dc. RJ SHEETS discussed pt requiring 1-2 person assist and has had several falls. Discussed SNF for therapy to help get a little stronger, pt denies. Pt denied wanting HHC services. Pt states he can get along on his own at him with family help. RJ SHEETS discussed possible O2 at DC, provided pt with a list of local DME providers, Pt chose [facility] as provider of choice if needed at DC. Pt states no further concerns/needs. CM to follow. Advised pt to ask CM if any further question/concerns/needs arise, voices understanding. RJ SHEETS gave report to RJ SHEETS on floor. Pt Goal: Home Plan: Home with family support, follow ST, PT and OT for recs for safe DC. Martha DE LA ROSA CM
[2025-03-19] MEDS: Thiamine Hydrochloride 500 MG in 0.9% Normal Saline (100mL Bag) 100 ML 200 MG IV ×2 (13:34→20:48)
[2025-03-19] MEDS: Nicotine (PBKC) 14 MG Patch TD (13:44)
[2025-03-19] MEDS: 0.9% Saline Lock 10 ML Syringe IV (20:52)
[2025-03-19] MEDS: 0.9% Normal Saline (1000mL) 1,000 ML 100 ML IV (22:03)
[2025-03-20] VITALS (8 sets, daily range): BP systolic 110–126; BP diastolic 45–68; PULSE 85–90; RESP 14–19; TEMP 36.7–36.9; O2SAT 96–100
[2025-03-20] MEDS: Thiamine Hydrochloride 500 MG in 0.9% Normal Saline (100mL Bag) 100 ML 200 MG IV ×3 (06:00→22:35)
[2025-03-20 06:39] LABS: Hematocrit 27.2 % (40-54); Hemoglobin 8.8 g/dL (13.0-16.5); Immature Granulocytes Count 0.020 X10^3/uL (0.0-0.0); Mean Corp Hgb Conc 32.4 g/dL (32-36); Mean Corpuscular Volume 100.0 fL (80-94); Mean Platelet Vol. 10.1 fl (6.2-12.0); NRBC Flagged by Analyzer 0 % (0-5); Platelet Count 227 K/mm3 (150-450); RBC Distribution Width CV 13.8 % (11.6-14.6); RBC Distribution Width SD 50.5 fl (35.1-43.9); Red Blood Count 2.72 M/mm3 (4.6-6.2); White Blood Count 7.7 K/mm3 (4.4-11.0)
[2025-03-20 06:59] LABS: Anion Gap 7 (5-15); BUN 28 mg/dL (4-19); BUN/Creat Ratio 41.9 RATIO (10-20); Calcium,Total 7.5 mg/dL (7.6-11.0); Carbon Dioxide 20.8 mmol/L (21.0-32.0); Chloride 113 mmol/L (98-108); Estimated Creatinine Clearance 67.09 ml/min (50-250); Glucose 51 mg/dL (70-99); Potassium 3.5 mmol/L (3.3-5.1)
[2025-03-20] MEDS: 0.9% Normal Saline (1000mL) 1,000 ML 100 ML IV ×2 (08:17→20:32)
[2025-03-20] MEDS: Magnesium Chloride 64 MG Delay Rel.Tablet 128 MG PO (08:25)
[2025-03-20] MEDS: Glucerna Shake 120 ML LIQUID PO (08:26)
[2025-03-20] MEDS: Nicotine (PBKC) 14 MG Patch TD (08:26)
--- NOTE | 2025-03-20 13:17 | PN.HOSP_ITS ---
Subjective Subjective Doing well today, much more alert. CIWA score 0 Objective Data Objective Data Vital Signs: Vital Signs Temp Pulse Resp BP Pulse Ox O2 Del Method O2 Flow Rate 98.3 F 87 14 110/45 L 100 Room Air 1 03/20/25 08:18 03/20/25 08:18 03/20/25 08:18 03/20/25 08:18 03/20/25 08:20 03/20/25 08:20 03/19/25 20:56 Oxygen Flow Rate (L/min) 1 Oxygen Delivery Method Room Air Weight: 144 lb 6.444 oz Body Mass Index (BMI) 20.7 Intake & Output: Intake and Output for Last 24 Hours 03/19/25 03/20/25 03/21/25 03:59 03:59 03:59 Intake Total 2735 / 2735 2860.00 / 2860.00 1530 / 1530 Output Total 1150 / 1150 650 / 650 Balance 2735 / 2735 1710.00 / 1710.00 880 / 880 Lab / Micro Data 03/20/25 04:44 03/20/25 04:44 Labs: Laboratory Results - last 24 hr 03/19/25 16:31: POC Glucose 77 03/19/25 20:45: POC Glucose 70 L 03/20/25 04:44: WBC 7.7, RBC 2.72 L, Hgb 8.8 L, Hct 27.2 L, MCV 100.0 H, MCH 32.4 H, MCHC 32.4, RDW Std Deviation 50.5 H, RDW Coeff of Ana 13.8, Plt Count 227, MPV 10.1, Immature Gran % (Auto) 0.300, Neut % (Auto) 62.5, Lymph % (Auto) 20.5, [place] % (Auto) 12.7 H, Eos % (Auto) 3.5, Baso % (Auto) 0.5, Absolute Neuts (auto) 4.8, Absolute Lymphs (auto) 1.58, Nucleated RBC % 0, Sodium 141, Potassium 3.5, Chloride 113 H, Carbon Dioxide 20.8 L, Anion Gap 7, BUN 28 H, C reatinine 0.67 L, Estim Creat Clear Calc 67.09, Est GFR (MDRD) Non-Af 94, B UN/Creatinine Ratio 41.9 H, Glucose 51 L, Calcium 7.5 L 03/20/25 06:38: POC Glucose 52 L 03/20/25 06:58: POC Glucose 70 L 03/20/25 11:19: POC Glucose 130 H Physical Exam Narrative General: Alert, Oriented x3, Cooperative, No apparent distress HEENT: Atraumatic, PERRLA, EOMI, Normocephalic Oral: Moist Mucosa Neck: Supple, No JVD Lungs: Diminished, Normal air movement, No rhonchi, No wheeze, No rales Cardiovascular: Regular rate, Regular Rhythm, Normal S1, Normal S2, No murmurs Abdomen: Soft, Non Tender, Non-Distended, No Hepato-splenomegaly Extremities: No edema, Capillary Refill Less than 3 Seconds Skin: No rashes, No breakdown Musculoskeletal: No Tenderness to Palpation of Joints or Extremities, right arm is in a sling Neurological: No focal neurological deficits, moves all extremities Psych/Mental Status: Normal affect, appropriate Assessment & Plan Assessment/Plan (1) Generalized weakness: (2) Closed right humeral fracture: (3) Alcohol abuse: PLAN: Plan 1. Generalized weakness and frequent falls with a recent fracture to his right humerus and a history of alcohol abuse/probable UTI ? Urine cultures pending ? Continue with Rocephin ? PT/OT, may need SNF ? Given his alcohol use history, will continue with folic acid supplementation but will also add high-dose thiamine 2. Essential HTN ? Blood pressure stable, continue with his lisinopril ? Monitor make adjustments as necessary 3. DM2 ? Hold his home medications ? Sliding scale insulin ? Accu-Cheks 4. Anemia ? Unclear etiology, it is macrocytic ? Hemoccult is pending DVT: Lovenox Charges/Coding Visit Charges Inpatient E&M: 73129 Subs Hosp L2
[2025-03-21 03:30] VITALS: BP 131/78; PULSE 90; RESP 16; TEMP 36.8; O2SAT 99
[2025-03-21 05:45] LABS: Hematocrit 27.3 % (40-54); Hemoglobin 8.7 g/dL (13.0-16.5); Immature Granulocytes Count 0.020 X10^3/uL (0.0-0.0); Mean Corp Hgb Conc 31.9 g/dL (32-36); Mean Corpuscular Volume 100.0 fL (80-94); Mean Platelet Vol. 10.2 fl (6.2-12.0); NRBC Flagged by Analyzer 0 % (0-5); Platelet Count 237 K/mm3 (150-450); RBC Distribution Width CV 13.9 % (11.6-14.6); RBC Distribution Width SD 50.8 fl (35.1-43.9); Red Blood Count 2.73 M/mm3 (4.6-6.2); White Blood Count 6.3 K/mm3 (4.4-11.0)
[2025-03-21] MEDS: Thiamine Hydrochloride 500 MG in 0.9% Normal Saline (100mL Bag) 100 ML 200 MG IV ×3 (06:33→21:54)
[2025-03-21] MEDS: 0.9% Normal Saline (1000mL) 1,000 ML 100 ML IV (06:33)
[2025-03-21 08:27] VITALS: O2SAT 94
[2025-03-21 08:38] VITALS: BP 117/57; PULSE 73; RESP 14; TEMP 36.6; O2SAT 100
[2025-03-21] MEDS: Magnesium Chloride 64 MG Delay Rel.Tablet 128 MG PO (08:43)
[2025-03-21] MEDS: Nicotine (PBKC) 14 MG Patch TD (08:44)
--- NOTE | 2025-03-21 09:52 | CASEMGMT ---
Addendum entered by Grace Uriarte 03/22/25 10:35: 03/21/25 (1630) : Pt and pt's son prefer [facility]) [facility], [facility]) [facility], and 3) [facility]. DPA notified and made referrals. Addendum entered by Grace Uriarte 03/21/25 15:55: RN CM to the pt room at this time. Pt's son, Kyle, at the bedside. Updated the pt and the pt's son that the pt has been accepted by [facility]. Pt's RN at the bedside and also explains to the pt that the pt is not safe to return home in his current condition and would be a high fall risk due to the pt's weakness. After the pt's son and the pt had some discussion, pt becomes agreeable to a short term SNF stay in the community to help the pt return to his PLOF before returning home. [facility] notified. DPA provided the family with a list, see note. CM to follow for preferences. Addendum entered by Grace Uriarte 03/21/25 14:20: [facility] returns call and states that they are able to accept for SOC Tuesday. CM will update pt and pt's son once pt's son arrives. Addendum entered by Grace Uriarte 03/21/25 13:49: Pt's son, Kyle, returns TC. Kyle updated on DC planning. Kyle is concerned about pt returning home tomorrow in his current condition. Kyle states that the pt lied to this insurance writer about the county [place] demonstrator through [place] and states that it is the pt's GD that comes to the home q M-F from [id number]. Kyle states that the pt will require more assistance. This RN CM agrees and informed the pt as well as the pt's son that therapy is also stating that the pt is not safe to return home without additional skilled therapy. Educated the pt and pt's son about the potential for readmission to the hospital if the pt were to return home. At this time, [facility] referral is still pending. Kyle states that he will be coming into the hospital at 1530 today and would like this RN CM to talk with him and the pt. CM to follow. Addendum entered by Grace Uriarte 03/21/25 11:56: Hospitalist updated on tentative DC plan who reports DC is projected for tomorrow at this time. CM to continue to follow Addendum entered by Grace Uriarte 03/21/25 11:46: TCU shop coordinator states that they cannot accept the pt. RJ SHEETS to the pt's room at this time and updated. Inquired again with the pt if he were to be interested in attending a SNF out in the community for a short term rehab stay to help the pt return to his PLOF prior to returning home alone. Pt adamantly declines. However, pt states that he would be open to skilled HHC. Pt reports that he has been established with [facility] in the past and that he would prefer [facility]. Pt offered a list of other HHC agencies at this time. Pt declines and states that he prefers [facility] again and that if they cannot accept, he would like HHC through the [place] then. TC to [facility] and referral made. Awaiting return response. Original Note: Hospitalist reports that the pt will be medically ready for DC today vs tomorrow. See PT notes as therapy is recommending a short term SNF stay to help the pt return to his PLOF. RJ SHEETS to the pt's room at this time. Pt is sitting up in the chair, is A&Ox4, eating breakfast, and is calm. Pt informed about therapy's recommendations regarding DC planning. Pt states that he would be willing to see if TCU would be able to accept him but does not want to go to a SNF in the community. Pt offered a list of local in-network SNF's but pt declines. Pt states that this RN CM can update his son, Kyle. TC to Kyle at this time, no answer. Unable to leave . Referral sent to TCU shop coordinator via [facility]. Awaiting return response. Pt denies further questions or concerns at this time. This insurance writer inquires what the pt would want to do if TCU cannot accept. Pt states that he may be open to skilled HHC but wants to think about this. CM to continue to follow. Pt states that he has a county home demonstrator that comes q Day through the [place].
--- NOTE | 2025-03-21 12:44 | PCM.PN.HOSP ---
Subjective Subjective Doing well, wants to go home. However family felt that he would do better at SNF. He was declined by the facility here in the hospital. Will attempt to provide him with home health care Objective Data Objective Data Vital Signs: Vital Signs Temp Pulse Resp BP Pulse Ox O2 Del Method O2 Flow Rate 97.8 F 73 14 117/57 L 100 Room Air 2 03/21/25 08:38 03/21/25 08:38 03/21/25 08:38 03/21/25 08:38 03/21/25 08:38 03/21/25 08:50 03/21/25 08:27 Oxygen Flow Rate (L/min) 2 Oxygen Delivery Method Room Air Weight: 144 lb 6.444 oz Body Mass Index (BMI) 20.7 Intake & Output: Intake and Output for Last 24 Hours 03/20/25 03/21/25 03/22/25 03:59 03:59 03:59 Intake Total 2860.00 / 2860.00 3190 / 3190 2021.67 / 202.67 Output Total 1150 / 1150 1150 / 1150 Balance 1710.00 / 1710.00 2040 / 2040 2021.67 / 202.67 Lab / Micro Data 03/21/25 04:39 03/20/25 04:44 Labs: Laboratory Results - last 24 hr 03/20/25 16:30: POC Glucose 113 H 03/20/25 22:34: POC Glucose 150 H 03/21/25 04:39: WBC 6.3, RBC 2.73 L, Hgb 8.7 L, Hct 27.3 L, MCV 100.0 H, MCH 31.9, MCHC 31.9 L, RDW Std Deviation 50.8 H, RDW Coeff of Ana 13.9, Plt Count 237, MPV 10.2, Immature Gran % (Auto) 0.300, Neut % (Auto) 56.4, Lymph % (Auto) 21.7, [place] % (Auto) 13.9 H, Eos % (Auto) 7.1 H, Baso % (Auto) 0.6, Absolute Neuts (auto) 3.6, Absolute Lymphs (auto) 1.37, Nucleated RBC % 0 03/21/25 06:32: POC Glucose 79 03/21/25 12:04: POC Glucose 153 H Micro: Microbiology 03/19/25 08:43 Urine, Random Urine Culture - Final Culture exhibits no growth. Physical Exam Narrative General: Alert, Oriented x3, Cooperative, No apparent distress HEENT: Atraumatic, PERRLA, EOMI, Normocephalic Oral: Moist Mucosa Neck: Supple, No JVD Lungs: Diminished, Normal air movement, No rhonchi, No wheeze, No rales Cardiovascular: Regular rate, Regular Rhythm, Normal S1, Normal S2, No murmurs Abdomen: Soft, Non Tender, Non-Distended, No Hepato-splenomegaly Extremities: No edema, Capillary Refill Less than 3 Seconds Skin: No rashes, No breakdown Musculoskeletal: No Tenderness to Palpation of Joints or Extremities, right arm is in a sling Neurological: No focal neurological deficits, moves all extremities Psych/Mental Status: Normal affect, appropriate Assessment & Plan Assessment/Plan (1) Generalized weakness: (2) Closed right humeral fracture: (3) Alcohol abuse: PLAN: Plan 1. Generalized weakness and frequent falls with a recent fracture to his right humerus and a history of alcohol abuse/probable UTI ? Urine culture is no growth however it had to be redrawn after antibiotics have been given therefore we will empirically treat for 5 days ? Continue with Rocephin ? PT/OT ? Given his alcohol use history, will continue with folic acid supplementation but will also add high-dose thiamine 2. Essential HTN ? Blood pressure stable, continue with his lisinopril ? Monitor make adjustments as necessary 3. DM2 ? Hold his home medications ? Sliding scale insulin ? Accu-Cheks 4. Anemia ? Unclear etiology, it is macrocytic ? Hemoccult is pending ? Will obtain iron panel as well as vitamin B12, he is currently on folic acid DVT: Lovenox Charges/Coding Visit Charges Inpatient E&M: 70533 Subs Hosp L2
[2025-03-21 14:20] LABS: Ferritin 508 ng/mL (37-417); Iron 24 ug/dL (65-175); Iron Binding Capacity,Unsat 106 ug/dL (228-428); Vitamin B12 818 pg/mL (180-914)
[2025-03-21 14:37] LABS: Iron Binding Capacity,Total 130 ug/dL (250-450)
--- NOTE | 2025-03-21 15:32 | CASEMGMT ---
Discharge Planning A list of SNF providers including quality and resource use data and consistent with the patient's preferred geographic region, medical needs, and insurance network was created in [facility]Port Guide.? This list was provided to the pt and his son. Coco Mueller, Discharge Planning Asst.
[2025-03-21 15:45] VITALS: BP 134/66; PULSE 85; RESP 15; TEMP 36.6; O2SAT 98
--- NOTE | 2025-03-21 16:42 | CASEMGMT ---
Addendum entered by Coco Mueller 03/22/25 08:56: [facility] has accepted. RJ SHEETS updated. Coco Mueller DC Planning Asst. Addendum entered by Coco Mueller 03/22/25 08:05: [facility] and [facility] have accepted. Coco Mueller DC Planning Asst. Original Note: Discharge Planning Referral sent via [facility] to [facility], [facility], and [facility]. Noted that pt is unsure if he will use his MCR or skilled [place] benefits. MCR number provided in referral. Coco Mueller DC Planning Asst.
[2025-03-21 21:50] VITALS: BP 151/74; PULSE 76; RESP 18; TEMP 36.2; O2SAT 100
[2025-03-22 03:12] VITALS: BP 160/81; PULSE 85; RESP 18; TEMP 36.2; O2SAT 96
[2025-03-22] MEDS: Thiamine Hydrochloride 500 MG in 0.9% Normal Saline (100mL Bag) 100 ML 200 MG IV (05:08)
[2025-03-22 05:56] LABS: Hematocrit 27.6 % (40-54); Hemoglobin 9.1 g/dL (13.0-16.5); Immature Granulocytes Count 0.010 X10^3/uL (0.0-0.0); Mean Corp Hgb Conc 33.0 g/dL (32-36); Mean Corpuscular Volume 97.5 fL (80-94); Mean Platelet Vol. 10.1 fl (6.2-12.0); NRBC Flagged by Analyzer 0 % (0-5); Platelet Count 244 K/mm3 (150-450); RBC Distribution Width CV 13.7 % (11.6-14.6); RBC Distribution Width SD 49.7 fl (35.1-43.9); Red Blood Count 2.83 M/mm3 (4.6-6.2); White Blood Count 6.7 K/mm3 (4.4-11.0)
[2025-03-22 06:38] VITALS: O2SAT 93
[2025-03-22 06:45] LABS: Anion Gap 7 (5-15); BUN 16 mg/dL (4-19); BUN/Creat Ratio 26.5 RATIO (10-20); Calcium,Total 8.0 mg/dL (7.6-11.0); Carbon Dioxide 22.0 mmol/L (21.0-32.0); Chloride 114 mmol/L (98-108); Estimated Creatinine Clearance 67.09 ml/min (50-250); Glucose 109 mg/dL (70-99); Potassium 3.7 mmol/L (3.3-5.1)
[2025-03-22 09:00] VITALS: BP 159/78; PULSE 88; RESP 17; TEMP 36.6; O2SAT 99
--- NOTE | 2025-03-22 09:47 | TREXTCAR_ITS ---
Diet Diet Order/Speech Therapy: INPATIENT Hospital Diet / Speech Therapy Order(s) 03/18/25 23:12 Diet: Regular - General Food consistency:: Regular Liquid Consistency:: Regular/Thin Routine Orders/Code Status Routine Lab Work: CBC and BMP Code Status: DNRCC-A DC O2, CPAP, BIPAP needs Home O2 Discharge instructions: No Wound(s) Left Forehead: Wound Type: Abrasion Nose: Wound Type: Abrasion Left Knee: Wound Type: Abrasion Right Knee: Wound Type: Abrasion Right Forehead: Wound Type: Abrasion Therapies Physical Therapy: Eval and Treat Occupational Therapy: Eval and Treat Problem/Diagnosis (1) Generalized weakness: Status: Acute Code(s): R53.1 - Weakness (2) Closed right humeral fracture: Status: Acute Code(s): S42.301A - Unspecified fracture of shaft of humerus, right arm, initial encounter for closed fracture (3) Alcohol abuse: Status: Acute Code(s): F10.10 - Alcohol abuse, uncomplicated Plan 1. Generalized weakness and frequent falls with a recent fracture to his right humerus and a history of alcohol abuse/probable UTI ? Urine culture is no growth however it had to be redrawn after antibiotics have been given therefore we will empirically treat for 5 days ? Continue with Rocephin ? PT/OT ? Given his alcohol use history, will continue with folic acid supplementation but will also add high-dose thiamine 2. Essential HTN ? Blood pressure stable, continue with his lisinopril ? Monitor make adjustments as necessary 3. DM2 ? Hold his home medications ? Sliding scale insulin ? Accu-Cheks 4. Anemia ? Unclear etiology, it is macrocytic ? Hemoccult is pending ? Will obtain iron panel as well as vitamin B12, he is currently on folic acid DVT: Lovenox Allergies/Procedures Done in Hospital Allergies No Known Allergies Allergy (Verified 03/18/25 23:57) Procedures: None Type of Care/Length of Stay Estimated LOS: Convalescent Care Less Than 30 days Type of Care Needed: Skilled Rehab Potential: Good Prognosis: Good Additional Orders/Day of Discharge Day of Discharge: 03/22/25 Dietary and Speech Recommendations Dietitian Recommendations/Changes: Continue liberal regular diet. Continue 120mL glucerna shake TID with medpass. Will monitor weight trends. PO needs to be established. Discharge Plan Admission Admit Date/Time: 03/18/25 21:59 Attending Provider: Tomas Almeida Primary Care Provider: [facility],[place] Consulting Providers: Sedrick Garg Discharge Orders/Prescriptions Prescriptions: New folic acid 1 mg Tablet 1 mg PO BREAKFAST Qty: 0 0RF cefdinir 300 mg capsule 300 mg PO BID Qty: 2 0RF thiamine HCl (vitamin B1) 100 mg capsule 100 mg PO DAILY Qty: 30 0RF Continued glimepiride 1 tab PO DAILY Rx Instructions: 4 mg orally daily; multivitamin [Daily Multi-Vitamin] Tablet 1 tab PO DAILY empagliflozin 25 mg tablet 25 mg PO DAILY alogliptin 25 mg tablet 25 mg PO DAILY albuterol sulfate 90 puff inhalation .1-2 puffs PRN (Reason: asthma/copd) lisinopril 10 mg tablet 10 mg PO DAILY magnesium oxide 420 mg tablet 420 mg PO DAILY Referrals / Follow Up: Tabatha Irene MD [Non-Staff, Internal Medicine] [facility] [Primary Care Provider, None] Disposition Disposition (needs filled in before D/C Order can be placed): Long-Term Facility
[2025-03-22] MEDS: Nicotine (PBKC) 14 MG Patch TD (09:49)
[2025-03-22] MEDS: Magnesium Chloride 64 MG Delay Rel.Tablet 128 MG PO (09:49)
--- NOTE | 2025-03-22 10:35 | CASEMGMT ---
Pt's [facility] ([facility]) has accepted the pt. Referral to [facility] and [facility] have been canceled. Notified the hospitalist who reports pt is medically ready today. Transfer orders placed. 0700 completed in the [facility]. Copies provided to the DPA who plans to notify nursing and family & make copies of signed med list and transfer orders. DPA scheduled transport for 1115. No further needs identified at this time.
--- NOTE | 2025-03-22 10:37 | PHA.DC.MR.R ---
Pharmacy [place] Med Reconciliation Pharmacy Service has performed discharge medication reconciliation for this patient. The patient's discharge medication list was reviewed for discrepancies and discrepancies were resolved. Medications at Discharge Home Medications glimepiride 1 tab PO DAILY diabetes 11/15/23 multivitamin (Daily Multi-Vitamin tablet) 1 tab PO DAILY 11/15/23 albuterol sulfate 90 puff inhalation .1-2 puffs PRN asthma/copd 11/16/23 alogliptin 25 mg tablet 25 mg PO DAILY diabetes 11/16/23 empagliflozin 25 mg tablet 25 mg PO DAILY diabetes 11/16/23 lisinopril 10 mg tablet 10 mg PO DAILY blood pressure 11/16/23 magnesium oxide 420 mg tablet 420 mg PO DAILY supplement 11/16/23 cefdinir 300 mg capsule 300 mg PO BID #2 caps 03/22/25 folic acid 1 mg tablet 1 mg PO BREAKFAST #0 tabs 03/22/25 thiamine HCl (vitamin B1) 100 mg capsule 100 mg PO DAILY #30 caps 03/22/25
--- NOTE | 2025-03-22 10:41 | CASEMGMT ---
Discharge Planning Discharge orders, signed med list, and transport time sent via [facility]Port to [place] [facility] [place]. Physicians will transport pt by wheelchair at 11:15a. Nursing, RN CM, pt, and his son (Kyle) updated. Coco Mueller DC Planning Asst.
[2025-03-22 11:41] VITALS: BP 165/74
--- NOTE | 2025-03-22 13:38 | DS.PCM_ITS ---
Providers Date of Admission: 03/18/25 Primary Care Physician: [facility] Reason For Visit: [place] [facility] RIGHT HUMERUS FRACTURE Diagnosis Discharge Diagnosis (1) Generalized weakness: Status: Acute Code(s): R53.1 - Weakness (2) Closed right humeral fracture: Status: Acute Code(s): S42.301A - Unspecified fracture of shaft of humerus, right arm, initial encounter for closed fracture (3) Alcohol abuse: Status: Acute Code(s): F10.10 - Alcohol abuse, uncomplicated Medications at Discharge Home Medications glimepiride 1 tab PO DAILY diabetes 11/15/23 multivitamin (Daily Multi-Vitamin tablet) 1 tab PO DAILY 11/15/23 albuterol sulfate 90 puff inhalation .1-2 puffs PRN asthma/copd 11/16/23 alogliptin 25 mg tablet 25 mg PO DAILY diabetes 11/16/23 empagliflozin 25 mg tablet 25 mg PO DAILY diabetes 11/16/23 lisinopril 10 mg tablet 10 mg PO DAILY blood pressure 11/16/23 magnesium oxide 420 mg tablet 420 mg PO DAILY supplement 11/16/23 cefdinir 300 mg capsule 300 mg PO BID #2 caps 03/22/25 folic acid 1 mg tablet 1 mg PO BREAKFAST #0 tabs 03/22/25 thiamine HCl (vitamin B1) 100 mg capsule 100 mg PO DAILY #30 caps 03/22/25 Hospital Course Operations None Procedures None Summary of Care Provided Minutes Spent on Discharge: 36 Hospital Course: Per HPI: OMKAR WOODRUFF, is a 80 M who presents to the emergency room after a fall at home with fracture to right humerus. Patient has significant past medical history of debility, tobacco abuse, alcohol abuse, hypertension and diabetes who lives alone in his frequented by family member. Patient was found down at home and was on the ground for an unknown period of time. Patient is a poor historian and his son is present to provide further history. Son state patient drinks significant amounts of alcohol routinely but is unaware that he has gone through alcohol withdrawal in the past, patient smokes and has poor nutritional status. CT of the head and neck is negative for acute findings however x-ray of the humerus shows a fracture of the humerus neck. A sling and swath has been applied in the ER. Laboratory studies reveal white blood cell count 12.1, hemoglobin 12.4, hematocrit 37.8, platelets 296, sodium 136, potassium 4.4, chloride 101, bicarb 20.2, BUN 33, creatinine 0.86, glucose 167, lactate elevated 3.8, CK 158, T. bili 0.46, AST 29, ALT 26. Per son patient is DNR Comfort Care arrest and that he states his father did not want to be resuscitated. Patient will be admitted to general medical floor physical therapy consult will be obtained and will hydrate patient overnight and reevaluate. Continue sling and swath and can follow-up with orthopedic surgeon as outpatient. It is highly likely this patient will need long-term care placement due to his falling risk and poor generalized health status. Hospital Course: 1. Generalized weakness frequent falls with recent fracture to his right humerus and a history of alcohol abuse/probable UTI?80-year-old male presented to the hospital with generalized weakness and frequent falls. He had suffered a fracture to his right humerus that he is nonweightbearing for on the right upper extremity with his arm being in a sling. He had a little bit of confusion which was thought to be due to his history of alcohol abuse and potential UTI. Unfortunately no urine culture tube was obtained upon admission and repeat culture was after antibiotics and therefore did not demonstrate growth. However UA was very consistent with a UTI therefore he was initiated on Rocephin and was discharged on 1 day of cefdinir to complete treatment. Because of his alcohol abuse he was initiated on high-dose thiamine and folic acid, he will continue with supplementation on discharge as well. Family did request possible evaluation for SNF placement and PT/OT evaluated him and felt that he would be appropriate. I discussed with him the plan for discharge and he expressed understanding of the risks and benefits of going to the retirement and would like to go today. 2. Anemia?unclear etiology at this time, hemoglobin is 9.1 on the day of discharge we did come in at 12. Hemoccult was negative and iron studies demonstrated anemia of chronic disease, he was placed on folic acid supplementation and his vitamin B12 was normal. Recommend continued outpatient monitoring at the retirement. 3. Essential hypertension, type 2 diabetes are chronic medical conditions which complicate his care. His home medications were continued where appropriate Physical Exam Narrative General: Alert, Oriented x3, Cooperative, No apparent distress HEENT: Atraumatic, PERRLA, EOMI, Normocephalic Oral: Moist Mucosa Neck: Supple, No JVD Lungs: Diminished, Normal air movement, No rhonchi, No wheeze, No rales Cardiovascular: Regular rate, Regular Rhythm, Normal S1, Normal S2, No murmurs Abdomen: Soft, Non Tender, Non-Distended, No Hepato-splenomegaly Extremities: No edema, Capillary Refill Less than 3 Seconds Skin: No rashes, No breakdown Musculoskeletal: No Tenderness to Palpation of Joints or Extremities, right arm is in a sling Neurological: No focal neurological deficits, moves all extremities Psych/Mental Status: Normal affect, appropriate Weight / BMI Weight Weight: 144 lb 6.444 oz Body Mass Index (BMI) 20.7 ABG / Lab / Microbiology Data 03/22/25 04:42 03/22/25 04:42 Laboratory: Laboratory Results - last 24 hr 03/20/25 04:44: Iron 24 L, TIBC 130 L, Iron Saturation 18.5, Unsaturated IBC 106 L, Ferritin 508 H, Vitamin B12 818 03/21/25 17:34: POC Glucose 173 H 03/21/25 21:58: POC Glucose 176 H 03/22/25 04:42: WBC 6.7, RBC 2.83 L, Hgb 9.1 L, Hct 27.6 L, MCV 97.5 H, MCH 32.2 H, MCHC 33.0, RDW Std Deviation 49.7 H, RDW Coeff of Ana 13.7, Plt Count 244, MPV 10.1, Immature Gran % (Auto) 0.100, Neut % (Auto) 55.5, Lymph % (Auto) 21.9, Holt % (Auto) 13.3 H, Eos % (Auto) 8.8 H, Baso % (Auto) 0.4, Absolute Neuts (auto) 3.7, Absolute Lymphs (auto) 1.47, Nucleated RBC % 0, Sodium 143, Potassium 3.7, Chloride 114 H, Carbon Dioxide 22.0, Anion Gap 7, BUN 16, C reatinine 0.60 L, Estim Creat Clear Calc 67.09, Est GFR (MDRD) Non-Af 97, B UN/Creatinine Ratio 26.5 H, Glucose 109 H, Calcium 8.0 03/22/25 06:21: POC Glucose 97 Microbiology: Microbiology 03/21/25 12:48 Stool Stool Occult Blood (BG) - Final 03/19/25 08:43 Urine, Random Urine Culture - Final Culture exhibits no growth. D/C Instructions DC O2, CPAP, BIPAP Needs Home O2 Discharge instructions: No Meaningful Use Info Meaningful Use Meaningful Use Diagnoses (Choose all that apply): None applicable Discharge Plan Admission Admit Date/Time: 03/18/25 21:59 Attending Provider: Tomas Almeida Primary Care Provider: [facility] Consulting Providers: Sedrick Garg Discharge Orders/Prescriptions Prescriptions: New folic acid 1 mg Tablet 1 mg PO BREAKFAST Qty: 0 0RF cefdinir 300 mg capsule 300 mg PO BID Qty: 2 0RF thiamine HCl (vitamin B1) 100 mg capsule 100 mg PO DAILY Qty: 30 0RF Continued glimepiride 1 tab PO DAILY Rx Instructions: 4 mg orally daily; multivitamin [Daily Multi-Vitamin] Tablet 1 tab PO DAILY empagliflozin 25 mg tablet 25 mg PO DAILY alogliptin 25 mg tablet 25 mg PO DAILY albuterol sulfate 90 puff inhalation .1-2 puffs PRN (Reason: asthma/copd) lisinopril 10 mg tablet 10 mg PO DAILY magnesium oxide 420 mg tablet 420 mg PO DAILY Referrals / Follow Up: Tabatha Irene MD [Non-Staff, Internal Medicine] [facility] [Primary Care Provider, None] Disposition Disposition (needs filled in before D/C Order can be placed): Nursing Home Facility Charges/Coding Visit Charges Inpatient E&M: 89003 Disch Hosp >30min
== END 2025-03-22 11:56 | disposition skilled nursing facility (03) | DRG 690 ==
LOC: ED 22:18 → PCU 22:58
PROVIDERS: Admitting Provider Family Medicine; Emergency Provider Emergency Medicine; Visit Provider Family Medicine
DX: N39.0 Urinary tract infection, site not specified (principal); E87.20 Acidosis, unspecified; S42.211A Unspecified displaced fracture of surgical neck of right humerus, initial encounter for closed fracture; R62.7 Adult failure to thrive; D63.8 Anemia in other chronic diseases classified elsewhere; E86.0 Dehydration; Z66 Do not resuscitate; E11.65 Type 2 diabetes mellitus with hyperglycemia; I10 Essential (primary) hypertension; F10.10 Alcohol abuse, uncomplicated; D53.9 Nutritional anemia, unspecified; W19.XXXA Unspecified fall, initial encounter; F17.210 Nicotine dependence, cigarettes, uncomplicated; Z68.20 Body mass index [BMI] 20.0-20.9, adult; R53.1 Weakness; R29.6 Repeated falls; R26.89 Other abnormalities of gait and mobility; R41.0 Disorientation, unspecified; Y92.009 Unspecified place in unspecified non-institutional (private) residence as the place of occurrence of the external cause; Z79.84 Long term (current) use of oral hypoglycemic drugs; Z79.899 Other long term (current) drug therapy
CPT/HCPCS: 36415; 70450; 71046; 72125; 73030; 80048; 80053; 81001; 82274; 82550; 82607; 82728; 82962; 83540; 83550; 83605; 83690; 85025; 85610; 85730; 87086; 93005; 97116; 97162; 97166; 97530; 97535; 99285; 99406; P9612; A4216